=== PATIENT | female | born 1945 | race African-American/Black ===

== ENCOUNTER 2017-10-10 15:33 | Inpatient (IN) | payer MEDICARE, OTHER ==
--- NOTE | 2017-10-10 17:16 | ED Physician Chart ---
ED Chief Complaint/HPI - Patient Information Date Seen:: 10/10/17 Time Seen:: 17:00 Chief Complaint:: aggressive behavior History of Present Illness:: Patient was exhibiting aggressive behavior at her halfway facility reportedly striking out. Allergies:: Allergies Allergy/AdvReac Type Severity Reaction Status Date / Time No Known Allergies Allergy Verified 10/10/17 16:39 Vitals:: Vital Signs - 8 hr 10/10/17 16:39 Temp 98.9 F HR 114 RR 23 BP 123/66 O2 Sat % 100 Historian:: Patient Review:: Nurse's Note Reviewed ED Review of Systems - Review of Systems General/Constitutional: No fever, No chills Skin: No skin lesions Head: No headache Eyes: No loss of vision ENT: No earache Neck: No neck pain, No swelling Cardio Vascular: No chest pain, No palpitations Pulmonary: No SOB GI: No nausea, No vomiting, No diarrhea G/U: No dysuria Musculoskeletal: No bone or joint pain Endocrine: No polyuria, No polydipsia Psychiatric: Prior psych history Hematopoietic: Bruising Allergic/Immuno: No urticaria Neurological: No syncope, No focal symptoms ED Past Medical History - Past Medical History Past Medical History: HTN, CAD, Dyslipidemia, Other (hyperlipidemia; angina pectoris; psychosis) Social History: Smoker, No Alcohol Surgical History: other (mastectomy) Psychiatricy History: Other (psychosis) Medication: Reviewed ED Labs/Radiology/EKG Results - EKG Interpretations Rate & Rhythm: normal sinus rhythm with a rate of 79 [place]: normal axis Comments:: First degree AV block and left ventricular hypertrophy. ED Septic Shock - . Is Septic Shock (SBP<90, OR Lactate>4 mmol\L) present?: No - <6hrs of presentation: Vital Signs: Vital Signs - 8 hr 10/10/17 16:39 Temp 98.9 F HR 114 RR 23 BP 123/66 O2 Sat % 100 ED Reassessment (Disposition) - Reassessment Reassessment:: Patient refused laboratory tests so will be given a medical clearance based on her history, physical and EKG Reassessment Condition:: Unchanged - Diagnosis Diagnosis:: Aggressive behavior; psychosis - Patient Disposition Admitted to:: [facility] Admitting Medical Physician:: Binh Bear Admitting Psych Physician:: Felipe Dahl Condition at Disposition:: Stable, Unchanged ED Discharge Plan - Patient Disposition Instructions: Psychosis
[2017-10-10 18:24] LABS: URINE MICROSCOPIC INDICATED? YES; URINE SOURCE CLEAN C
[2017-10-10 18:34] LABS: URINE BILIRUBIN NEGATIVE (NEGATIVE); URINE BLOOD NEGATIVE (NEGATIVE); URINE GLUCOSE (UA) NEGATIVE (NEGATIVE); URINE KETONE NEGATIVE (NEGATIVE); URINE LEUKOCYTE ESTERASE NEGATIVE (NEGATIVE); URINE NITRATE NEGATIVE (NEGATIVE); URINE PROTEIN NEGATIVE (NEGATIVE); URINE UROBILINOGEN 0.2 E.U./dL (0.2 - 1.0)
[2017-10-10 18:48] LABS: AMPHETAMINE URINE NEGATIVE (NEGATIVE); BARBITURATES URINE NEGATIVE (NEGATIVE); BENZODIAZEPINES QUAL URINE NEGATIVE (NEGATIVE); CANNABINOID THC NEGATIVE (NEGATIVE); COCAINE METABOLITE QUAL URINE NEGATIVE (NEGATIVE); METHADONE URINE NEGATIVE (NEGATIVE); METHAMPHETAMINES QUAL URINE NEGATIVE (NEGATIVE); OPIATES (MORPHINE) QUAL. URINE NEGATIVE (NEGATIVE); PHENCYCLIDINE (PCP) URINE NEGATIVE (NEGATIVE); TRICYCLICS (TCA) QUAL. URINE NEGATIVE (NEGATIVE)
[2017-10-10 18:52] LABS: URINE CLARITY CLEAR (CLEAR); URINE COLOR YELLOW
[2017-10-10 18:53] LABS: URINE BACTERIA FEW /hpf (NONE SEEN); URINE EPITHELIAL CELLS MODERATE /lpf (FEW); URINE RBC NONE SEEN /hpf (0-5); URINE WBC 0-2 /hpf (0-5)
[2017-10-10 20:37] VITALS: BP 196/86
--- NOTE | 2017-10-11 08:46 | History and Physical ---
History of Present Illness - HPI Chief Complaint: Patient was send from SNF due to increased in agitation, patient was striking employes. HPI: This is a permanent resident of a nursing [facility]. Patient started to became agitated and striking personal, she was transferred to ER for evaluation and treatment. Vital Signs: Last Vital Signs Temp 97.6 F 10/11/17 06:55 Pulse 72 10/11/17 06:55 Resp 20 10/11/17 06:55 BP 137/78 10/11/17 06:55 Pulse Ox 98 10/11/17 06:55 Past Medical History Cardiovascular: Report: AFIB, CAD, CHF, HTN Pulmonary: Report: No Pertinent Hx HAND GRINDER: Report: Dementia GI: Report: No Pertinent Hx Psych: Report: Psychosis, Schizophrenia Musculoskeletal: Report: Weakness Rheumatologic: Report: No pertinent Hx Infectious Disease: Report: No Pertinent Hx Renal/: Report: No Pertinent Hx Endocrine: Report: No Pertinent Hx Dermatology: Report: No Pertinent Hx - Past Surgical History Past Surgical History: Mastectomy Family Medical History - Family Member Mother History Unknown: Yes Ethnicity: Unknown Living Status: Unknown Hx Family Cancer: (unknown) Hx Family Coronary Artery Disease: (unknown) Hx Family Congestive Heart Failure: (unknown) Hx Family Hypertension: (unknown) Hx Family Stroke: (unknown) Hx Family Diabetes: (unknown) Hx Family Seizures: (unknown) Hx Family Dementia: (unknown) Hx Family AIDS: (unknown) Hx Family HIV: No Hx Family COPD: (unknown) Hx Family Hepatitis: (unknown) Hx Family Psychiatric Problems: (unknown) Hx Family Tuberculosis: (unknown) Social History Smoke: No Alcohol: None Drugs: None Lives: Care Home Domestic Violence: Negative - Medications Home Medications: Home Medication Medication Instructions Recorded Type Amlodipine Besylate 10 mg PO DAILY 10/10/17 History Aspirin [Aspirin Chewable] 81 mg PO DAILY 10/10/17 History Calcium Carbonate [Oyster Shell 500 mg PO DAILY 10/10/17 History Calcium] Diphenhydramine HCL [Benadryl] 50 mg PO HS 10/10/17 History Docusate Sodium [Dok] 250 mg PO DAILY 10/10/17 History Hydralazine [Apresoline*] 50 mg PO TID 10/10/17 History Hydrochlorothiazide 12.5 mg PO DAILY 10/10/17 History Ibuprofen 600 mg PO Q8H PRN 10/10/17 History Isosorbide Mononitrate [Isosorbide 60 mg PO DAILY 10/10/17 History Mononitrate ER] Losartan Potassium [Cozaar] 50 mg PO DAILY 10/10/17 History Multivitamin [Multivitamins] 1 cap PO DAILY 10/10/17 History Oxybutynin Chloride [Ditropan*] 5 mg PO DAILY 10/10/17 History Risperidone 2 mg PO TID 10/10/17 History Simvastatin [Zocor] 20 mg PO DAILY 10/10/17 History - Allergies Allergies/Adverse Reactions: Allergies Allergy/AdvReac Type Severity Reaction Status Date / Time No Known Allergies Allergy Verified 10/10/17 16:39 Review of Systems - Review of Systems Constitutional: Report: Weakness Eyes: Report: No Significant ENT: Report: No Significant Respiratory: Report: No Significant Cardiovascular: Report: No Significant Gastrointestinal: Report: No Significant Genitourinary: Report: No Significant Musculoskeletal: Report: No Significant Skin: Report: No Significant Neurological: Report: Weakness Physical Exam - Physical Exam HEENT: Report: Ears Nose Throat within normal limits Neck: Report: Within normal limits Cardiovascular Systems: Report: Regular, Rate and Rhythm Respiratory: Report: Breath Sounds are within normal limits Abdomen: Report: Non-tender to palpation Back: Report: Inspection of back is within normal limits. Extremities: Report: Non-tender to palpation., Other (Patient walks with walker assistance.) Skin: Report: Color of skin is within normal limits Neuro/Psych: Report: Other (Awake, alert, calm, confused, in no acute distress.) - Lab Results All Lab Results last 24 hours: Laboratory Results - last 24 hr 10/10/17 10/10/17 18:16 18:16 Urine Source CLEAN C Urine Color YELLOW Urine Clarity CLEAR Urine pH 6.0 Ur Specific [place] <= 1.005 Urine Protein NEGATIVE Urine Glucose (UA) NEGATIVE Urine Ketones NEGATIVE Urine Blood NEGATIVE Urine Nitrate NEGATIVE Urine Bilirubin NEGATIVE Urine Urobilinogen 0.2 Ur Leukocyte Esterase NEGATIVE Urine RBC NONE SEEN Urine WBC 0-2 Ur Epithelial Cells MODERATE Urine Bacteria FEW Urine Opiates Screen NEGATIVE Urine Methadone Screen NEGATIVE Ur Barbiturates Screen NEGATIVE Ur Tricyclics Screen NEGATIVE Ur Phencyclidine Scrn NEGATIVE Amphetamines Screen NEGATIVE U Methamphetamines Scrn NEGATIVE U Benzodiazepines Scrn NEGATIVE U Cocaine Metab Screen NEGATIVE U Cannabinoids Screen NEGATIVE - Assessment Assessment: Current Active Problems Problem Status Onset AGITATED AND AGGRESSIVE BEHAVIOR Acute Patient is awake, alert, calm, in no acute distress. Dx: Increased in agitation , Psychosis, HTN, CAD, Dyslipemia, Angina pectoris. - Plan Plan: Patient will be follow by Psychiatry, she will continue with SNF meds. Patient refused draw blood. Will continue to monitor.
[2017-10-11] MEDS: Aspirin 81mg Chewable Tab PO SCH (09:04)
[2017-10-11] MEDS: Multivitamin Tab PO SCH (09:06)
--- NOTE | 2017-10-12 06:45 | Psychosocial Evaluation ---
DATE OF SERVICE: 10/11/2017 IDENTIFYING DATA: The patient is 72-year-old -[place] woman, resident of [facility]. Information obtained by directly interviewing the patient as well as reviewing the admission papers and they are reliable. JUSTIFICATION HOSPITALIZATION: The patient is admitted here on a voluntary basis in view of her agitation and psychosis. CHIEF COMPLAINT: "They are poisoning the juice, they are poisoning the food. I cannot go back there anymore." HISTORY OF PRESENT ILLNESS: This is the first psychiatric hospitalization to [facility] for this patient who has been very agitated, screaming and yelling, stating that the juice is poisoned and the food is poisoned. She cannot take any longer and then has been arguing with the staff members. The patient could not be redirected. Review of the chart indicates that the patient is currently on 2 mg 3 times a day of the Risperdal. Sleep and appetite prior to the hospitalization are reported to be poor. PAST PSYCHIATRIC HISTORY: Details are not known. MEDICAL HISTORY: Physical examination requested and done by Dr. Bear. The patient has hypercholesterolemia, problem with her bladder, and the patient is also having high blood pressure. SUBSTANCE ABUSE HISTORY: None. PHYSICAL OR SEXUAL ABUSE HISTORY: None. LEGAL PROBLEMS: None at this time. MENTAL STATUS EXAMINATION: The patient is a 72-year-old moderately obese, superficially cooperative. Eye contact is poor. Mood is noted to be irritable. Affect is constricted. Insight and judgment are noted to be still impaired. Impulse control seems to be poor. Coping skills are also noted to be very poor. The patient has been having difficult time to cope with the stress. The patient is screaming and yelling. The patient is extremely paranoid, but denies any command hallucinations. The patient is stating that her juice and then the food is poisoned. The patient is alert and oriented x 3. Short and long-term memory are noted to be intact. DIAGNOSTIC IMPRESSION: AXIS I: Schizophrenia, chronic paranoid type. AXIS II: None. AXIS III: Hypertension, hypercholesterolemia, and obesity. IMMEDIATE TREATMENT PLAN: The patient is going to be continued with the Risperdal. The patient is going to be closely monitored. Once stabilized, the patient is going to be discharged to be followed up on an outpatient basis. JOB# [id number]
--- NOTE | 2017-10-12 08:39 | General Progress Note ---
Subjective - Review of Systems Service Date: 10/12/17 Subjective: I am ok. Objective - Results Recent Labs: Laboratory Last Values Urine Source CLEAN C 10/10/17 18:16 Urine Color YELLOW 10/10/17 18:16 Urine Clarity CLEAR (CLEAR) 10/10/17 18:16 Urine pH 6.0 (4.6 - 8.0) 10/10/17 18:16 Ur Specific [place] <= 1.005 (1.005-1.030) 10/10/17 18:16 Urine Protein NEGATIVE mg/dL (NEGATIVE) 10/10/17 18:16 Urine Glucose (UA) NEGATIVE mg/dL (NEGATIVE) 10/10/17 18:16 Urine Ketones NEGATIVE mg/dL (NEGATIVE) 10/10/17 18:16 Urine Blood NEGATIVE (NEGATIVE) 10/10/17 18:16 Urine Nitrate NEGATIVE (NEGATIVE) 10/10/17 18:16 Urine Bilirubin NEGATIVE (NEGATIVE) 10/10/17 18:16 Urine Urobilinogen 0.2 E.U./dL (0.2 - 1.0) 10/10/17 18:16 Ur Leukocyte Esterase NEGATIVE (NEGATIVE) 10/10/17 18:16 Urine RBC NONE SEEN /hpf (0-5) 10/10/17 18:16 Urine WBC 0-2 /hpf (0-5) 10/10/17 18:16 Ur Epithelial Cells MODERATE /lpf (FEW) 10/10/17 18:16 Urine Bacteria FEW /hpf (NONE SEEN) 10/10/17 18:16 Urine Opiates Screen NEGATIVE (NEGATIVE) 10/10/17 18:16 Urine Methadone Screen NEGATIVE (NEGATIVE) 10/10/17 18:16 Ur Barbiturates Screen NEGATIVE (NEGATIVE) 10/10/17 18:16 Ur Tricyclics Screen NEGATIVE (NEGATIVE) 10/10/17 18:16 Ur Phencyclidine Scrn NEGATIVE (NEGATIVE) 10/10/17 18:16 Amphetamines Screen NEGATIVE (NEGATIVE) 10/10/17 18:16 U Methamphetamines Scrn NEGATIVE (NEGATIVE) 10/10/17 18:16 U Benzodiazepines Scrn NEGATIVE (NEGATIVE) 10/10/17 18:16 U Cocaine Metab Screen NEGATIVE (NEGATIVE) 10/10/17 18:16 U Cannabinoids Screen NEGATIVE (NEGATIVE) 10/10/17 18:16 - Physical Exam Vitals and I&O: Vital Signs Temp 97.1 F 10/12/17 07:23 Pulse 62 10/12/17 07:23 Resp 19 10/12/17 07:23 BP 156/57 10/12/17 07:23 Pulse Ox 97 10/12/17 07:23 Intake & Output 10/11/17 10/12/17 10/12/17 18:59 06:59 18:59 Intake Total 1520 320 Balance 1520 320 Intake: Oral 1520 320 Other: # Voids 2 1 Active Medications: Current Medications Amlodipine Besylate (Norvasc) 10 mg PO DAILY [facility] Stop: 12/10/17 08:59 Last Admin: 10/11/17 09:07 Dose: Not Given Aspirin (Aspirin Chewable) 81 mg PO DAILY [facility] Stop: 12/10/17 08:59 Last Admin: 10/11/17 09:04 Dose: Not Given Calcium Carbonate (Os-Silvestre) 500 mg PO DAILY [facility] Stop: 12/10/17 08:59 Last Admin: 10/11/17 09:04 Dose: 500 mg Diphenhydramine HCl (Benadryl) 50 mg PO HS [facility] Stop: 12/09/17 20:59 Last Admin: 10/11/17 21:19 Dose: Not Given Docusate Sodium (Colace) 250 mg PO DAILY [facility] Stop: 12/10/17 08:59 Last Admin: 10/11/17 09:27 Dose: Not Given Hydralazine HCl (Apresoline) 50 mg PO TID [facility] Stop: 12/09/17 20:59 Last Admin: 10/11/17 21:21 Dose: 50 mg Hydrochlorothiazide (Hctz) 12.5 mg PO DAILY [facility] Stop: 12/10/17 08:59 Last Admin: 10/11/17 09:04 Dose: Not Given Ibuprofen (Motrin) 600 mg PO Q8H PRN PRN Reason: PAIN Stop: 12/09/17 20:45 Isosorbide Mononitrate (Imdur) 60 mg PO DAILY [facility] Stop: 12/10/17 08:59 Last Admin: 10/11/17 09:03 Dose: Not Given Lorazepam (Ativan) 0.5 mg PO Q6HR PRN; Protocol PRN Reason: Agitation Stop: 12/10/17 02:34 Losartan Potassium (Cozaar) 50 mg PO DAILY [facility] Stop: 12/10/17 08:59 Last Admin: 10/11/17 09:08 Dose: Not Given Multivitamins/Vitamin C (Theragran) 1 tab PO DAILY [facility] Stop: 12/10/17 08:59 Last Admin: 10/11/17 09:06 Dose: 1 tab Oxybutynin Chloride (Ditropan) 5 mg PO DAILY [facility] Stop: 12/10/17 08:59 Last Admin: 10/11/17 09:08 Dose: Not Given Risperidone (Risperdal) 2 mg PO TID [facility] Stop: 12/09/17 20:59 Last Admin: 10/11/17 21:20 Dose: 2 mg Simvastatin (Zocor) 20 mg PO HS [facility] PRN Reason: Protocol Stop: 12/09/17 20:59 Last Admin: 10/11/17 21:19 Dose: Not Given Zolpidem Tartrate (Ambien) 5 mg PO HS PRN PRN Reason: Insomnia Stop: 12/10/17 02:35 General: Alert, No acute distress HEENT: Atraumatic, PERRLA Neck: Supple Cardiovascular: Regular rate Lungs: Clear to auscultation Abdomen: Bowel sounds Extremities: Other (No edema) Neurological: Other (Walk with the assistance of a walker.) Skin: Other (Warm and dry) Psych/Mental Status: Other (Awake, alert, confused) Assessment/Plan - Problem List Patient Problems: All Active Problems AGITATED AND AGGRESSIVE BEHAVIOR (Acute) - Assessment Assessment: Current Active Problems Problem Status Onset AGITATED AND AGGRESSIVE BEHAVIOR Acute Patient is awake, alert, calm, in no acute distress. Dx: Increased in agitation , Psychosis, HTN, CAD, Dyslipemia, Angina pectoris. - Plan Plan: Patient will be follow by Psychiatry, she will continue with SNF meds. Patient refused draw blood. Will continue to monitor.
[2017-10-12] MEDS: Multivitamin Tab PO SCH (09:22)
[2017-10-12] MEDS: Aspirin 81mg Chewable Tab PO SCH (09:27)
--- NOTE | 2017-10-12 10:10 | Consultation ---
DATE OF CONSULTATION: 10/12/2017 REQUESTING PHYSICIAN: Felipe Dahl MD. TYPE OF CONSULTATION: Psychology. HISTORY OF PRESENT ILLNESS: The following is by review of the medical record as well as by patient's self report. The patient is a 72-year-old -[place] female who is a resident of [facility] [place]. The patient is known to this expert medical writer from her jail facility. The patient is being admitted due to paranoid ideation and suspiciousness. The patient reports that she feels her food is being poisoned by the staff at her facility. The patient is agitated and presents as actively psychotic and delusional. Upon interview, the patient continued to be agitated with intermittent episodes of yelling. The patient repeated and perseverated on the allegation that her food is being poisoned and that she does not want to return to the facility. The patient's behavior at the facility has been un-redirectable. The patient denies any suicidal ideation, plan or intention. The patient denies any hopelessness or helplessness. The patient at a certain point in the clinical interview stopped responding to clinical interview questions. PAST MEDICAL HISTORY: Please see history and physical by Dr. Bear. PAST PSYCHIATRIC HISTORY: The patient has a history of schizophrenia, paranoid type. The patient is under the care of a psychiatrist and psychologist at her jail facility. CURRENT MEDICATIONS: Please see medication reconciliation. ALLERGIES: No known drug allergies. SUBSTANCE ABUSE HISTORY: None. PSYCHOSOCIAL HISTORY: The patient is a resident of [facility] [place] and is seen by Dr. Talamantes for Psychiatry and this expert medical writer for Psychology. The patient has no first-degree biological relatives that are part of her support system. The patient did not answer questions about occupational history or educational history. The patient is a Sikhism. MENTAL STATUS EXAMINATION: The patient appears to be her stated age. The patient's attitude is superficially cooperative and at times argumentative. Eye contact is poor. Mood is irritable. Affect is constricted. Thought process shows to include suspiciousness and paranoid ideation. The patient is reporting that she feels her food is poisoned at her jail facility and stating she does not want to return to her placement. The patient denied any visual hallucinations or auditory hallucinations. The patient's behavior has been un-redirectable. Impulse control is inadequate. Concentration is poor. The patient was unable to sustain focus and attention and be cognitively redirected due to delusional content and perseveration on delusional thought. The patient' s sensorium is alert and oriented to self only. The patient did not participate in the memory evaluation. Immediate memory seems to be intact but short term and long-term memory need further evaluation. The patient did not participate in the interpretation of proverbs. Insight is poor. Judgment is impaired. DIAGNOSTIC IMPRESSION: AXIS I: Schizophrenia, chronic paranoid type by history. AXIS II: Deferred. AXIS III: Please see history and physical. PLAN: The patient has been seen for psychiatric evaluation and for the management of the patient's psychotropic medications by Dr. Dahl. We will provide reality orientation, reality differentiation and reality integration. We will provide coping strategies for phase of life issues as well as chronic severe mental illness. We will provide de-escalation and motivational enhancement for the patient to become compliant and stay compliant with all aspects of her care and treatment. Thank you, Dr. Dahl for this consult and the opportunity to participate with you in this patient's care. JOB# [id number] MTDD
--- NOTE | 2017-10-12 22:19 | Progress Notes ---
DATE: 10/12/2017 PSYCHIATRIC PROGRESS NOTE SUBJECTIVE: Staff was spoken to. The patient is interviewed. Mood is irritable. Affect is constricted. Coping skills at this time are noted to be still poor. The patient is screaming and yelling and stating that she does not need to be in here and does not need to be on any medications. There is no need for any psychiatrist. The patient is accusing that her food is being poisoned and no one is paying any attention to it. Continues to be extremely paranoid. The patient is not ready to be discharged to a lower level of care yet. The patient is also stating that she does not want to go back to [facility] because they tricked her and then got her over here. ASSESSMENT: The patient is still psychotic and impulsive. PLAN: To continue the patient with supportive therapy. Encouraged the patient to verbalize the concerns rather than to act out. Please note that the patient is not ready to be discharged to a lower level of care. Plan is to continue the patient with Risperdal and follow the patient. JOB# [id number]
[2017-10-13] MEDS: Aspirin 81mg Chewable Tab PO SCH (09:10)
[2017-10-13] MEDS: Multivitamin Tab PO SCH (09:18)
--- NOTE | 2017-10-13 10:38 | General Progress Note ---
Subjective - Review of Systems Service Date: 10/13/17 Subjective: I am ok. Objective - Results Recent Labs: Laboratory Last Values Urine Source CLEAN C 10/10/17 18:16 Urine Color YELLOW 10/10/17 18:16 Urine Clarity CLEAR (CLEAR) 10/10/17 18:16 Urine pH 6.0 (4.6 - 8.0) 10/10/17 18:16 Ur Specific [place] <= 1.005 (1.005-1.030) 10/10/17 18:16 Urine Protein NEGATIVE mg/dL (NEGATIVE) 10/10/17 18:16 Urine Glucose (UA) NEGATIVE mg/dL (NEGATIVE) 10/10/17 18:16 Urine Ketones NEGATIVE mg/dL (NEGATIVE) 10/10/17 18:16 Urine Blood NEGATIVE (NEGATIVE) 10/10/17 18:16 Urine Nitrate NEGATIVE (NEGATIVE) 10/10/17 18:16 Urine Bilirubin NEGATIVE (NEGATIVE) 10/10/17 18:16 Urine Urobilinogen 0.2 E.U./dL (0.2 - 1.0) 10/10/17 18:16 Ur Leukocyte Esterase NEGATIVE (NEGATIVE) 10/10/17 18:16 Urine RBC NONE SEEN /hpf (0-5) 10/10/17 18:16 Urine WBC 0-2 /hpf (0-5) 10/10/17 18:16 Ur Epithelial Cells MODERATE /lpf (FEW) 10/10/17 18:16 Urine Bacteria FEW /hpf (NONE SEEN) 10/10/17 18:16 Urine Opiates Screen NEGATIVE (NEGATIVE) 10/10/17 18:16 Urine Methadone Screen NEGATIVE (NEGATIVE) 10/10/17 18:16 Ur Barbiturates Screen NEGATIVE (NEGATIVE) 10/10/17 18:16 Ur Tricyclics Screen NEGATIVE (NEGATIVE) 10/10/17 18:16 Ur Phencyclidine Scrn NEGATIVE (NEGATIVE) 10/10/17 18:16 Amphetamines Screen NEGATIVE (NEGATIVE) 10/10/17 18:16 U Methamphetamines Scrn NEGATIVE (NEGATIVE) 10/10/17 18:16 U Benzodiazepines Scrn NEGATIVE (NEGATIVE) 10/10/17 18:16 U Cocaine Metab Screen NEGATIVE (NEGATIVE) 10/10/17 18:16 U Cannabinoids Screen NEGATIVE (NEGATIVE) 10/10/17 18:16 - Physical Exam Vitals and I&O: Vital Signs Temp 98.9 F 10/13/17 06:22 Pulse 73 10/13/17 09:17 Resp 18 10/13/17 06:22 BP 173/85 10/13/17 09:17 Pulse Ox 93 10/13/17 06:22 Intake & Output 10/12/17 10/13/17 10/13/17 18:59 06:59 18:59 Intake Total 320 Balance 320 Weight (lbs) 97.522 kg Intake: Oral 320 Other: # Voids 1 Active Medications: Current Medications Amlodipine Besylate (Norvasc) 10 mg PO DAILY [facility] Stop: 12/10/17 08:59 Last Admin: 10/13/17 09:09 Dose: 10 mg Aspirin (Aspirin Chewable) 81 mg PO DAILY [facility] Stop: 12/10/17 08:59 Last Admin: 10/13/17 09:10 Dose: 81 mg Calcium Carbonate (Os-Silvestre) 500 mg PO DAILY [facility] Stop: 12/10/17 08:59 Last Admin: 10/13/17 09:10 Dose: 500 mg Diphenhydramine HCl (Benadryl) 50 mg PO HS [facility] Stop: 12/09/17 20:59 Last Admin: 10/12/17 21:16 Dose: Not Given Docusate Sodium (Colace) 250 mg PO DAILY [facility] Stop: 12/10/17 08:59 Last Admin: 10/13/17 09:09 Dose: 250 mg Hydralazine HCl (Apresoline) 50 mg PO TID [facility] Stop: 12/09/17 20:59 Last Admin: 10/13/17 09:16 Dose: 50 mg Hydrochlorothiazide (Hctz) 12.5 mg PO DAILY [facility] Stop: 12/10/17 08:59 Last Admin: 10/13/17 09:08 Dose: 12.5 mg Ibuprofen (Motrin) 600 mg PO Q8H PRN PRN Reason: PAIN Stop: 12/09/17 20:45 Isosorbide Mononitrate (Imdur) 60 mg PO DAILY [facility] Stop: 12/10/17 08:59 Last Admin: 10/13/17 09:26 Dose: Not Given Lorazepam (Ativan) 0.5 mg PO Q6HR PRN; Protocol PRN Reason: Agitation Stop: 12/10/17 02:34 Losartan Potassium (Cozaar) 50 mg PO DAILY [facility] Stop: 12/10/17 08:59 Last Admin: 10/13/17 09:17 Dose: 50 mg Multivitamins/Vitamin C (Theragran) 1 tab PO DAILY [facility] Stop: 12/10/17 08:59 Last Admin: 10/13/17 09:18 Dose: 1 tab Oxybutynin Chloride (Ditropan) 5 mg PO DAILY [facility] Stop: 12/10/17 08:59 Last Admin: 10/13/17 09:09 Dose: 5 mg Risperidone (Risperdal) 2 mg PO TID [facility] Stop: 12/09/17 20:59 Last Admin: 10/13/17 09:17 Dose: 2 mg Simvastatin (Zocor) 20 mg PO HS [facility] PRN Reason: Protocol Stop: 12/09/17 20:59 Last Admin: 10/12/17 21:12 Dose: 20 mg Zolpidem Tartrate (Ambien) 5 mg PO HS PRN PRN Reason: Insomnia Stop: 12/10/17 02:35 General: Alert, No acute distress HEENT: Atraumatic, PERRLA Neck: Supple Cardiovascular: Regular rate Lungs: Clear to auscultation Abdomen: Bowel sounds Extremities: Other (No edema) Neurological: Other (Walk with the assistance of a walker.) Skin: Other (Warm and dry) Psych/Mental Status: Other (Awake, alert, confused) Assessment/Plan - Problem List Patient Problems: All Active Problems AGITATED AND AGGRESSIVE BEHAVIOR (Acute) - Assessment Assessment: Current Active Problems Problem Status Onset AGITATED AND AGGRESSIVE BEHAVIOR Acute Patient is awake, alert, calm, in no acute distress. Dx: Increased in agitation , Psychosis, HTN, CAD, Dyslipemia, Angina pectoris. - Plan Plan: Patient will be follow by Psychiatry, she will continue with SNF meds. Patient refused draw blood. Will continue to monitor.
--- NOTE | 2017-10-13 22:07 | Progress Notes ---
DATE: 10/13/2017 SUBJECTIVE: Staff was spoken to. The patient is interviewed. Mood is noted to be irritable. Affect is constricted. The patient is very paranoid and patient has been stating that her food is being poisoned and someone is adding some poison in to her food. The patient has no insight into her illness. Coping skills are noted to be very poor. No side effects to the medications are noted. The patient has been insisting on having her way. The patient needs to be redirected constantly. ASSESSMENT: The patient is still impulsive. The patient is going to be followed up with a supportive therapy, encouraged to verbalize the concerns rather than to act out. The patient at this time is not ready to be discharged to a lower level of care yet. JOB# [id number]
--- NOTE | 2017-10-14 08:36 | General Progress Note ---
Subjective - Review of Systems Service Date: 10/14/17 Subjective: I am ok. Objective - Results Recent Labs: Laboratory Last Values Urine Source CLEAN C 10/10/17 18:16 Urine Color YELLOW 10/10/17 18:16 Urine Clarity CLEAR (CLEAR) 10/10/17 18:16 Urine pH 6.0 (4.6 - 8.0) 10/10/17 18:16 Ur Specific [place] <= 1.005 (1.005-1.030) 10/10/17 18:16 Urine Protein NEGATIVE mg/dL (NEGATIVE) 10/10/17 18:16 Urine Glucose (UA) NEGATIVE mg/dL (NEGATIVE) 10/10/17 18:16 Urine Ketones NEGATIVE mg/dL (NEGATIVE) 10/10/17 18:16 Urine Blood NEGATIVE (NEGATIVE) 10/10/17 18:16 Urine Nitrate NEGATIVE (NEGATIVE) 10/10/17 18:16 Urine Bilirubin NEGATIVE (NEGATIVE) 10/10/17 18:16 Urine Urobilinogen 0.2 E.U./dL (0.2 - 1.0) 10/10/17 18:16 Ur Leukocyte Esterase NEGATIVE (NEGATIVE) 10/10/17 18:16 Urine RBC NONE SEEN /hpf (0-5) 10/10/17 18:16 Urine WBC 0-2 /hpf (0-5) 10/10/17 18:16 Ur Epithelial Cells MODERATE /lpf (FEW) 10/10/17 18:16 Urine Bacteria FEW /hpf (NONE SEEN) 10/10/17 18:16 Urine Opiates Screen NEGATIVE (NEGATIVE) 10/10/17 18:16 Urine Methadone Screen NEGATIVE (NEGATIVE) 10/10/17 18:16 Ur Barbiturates Screen NEGATIVE (NEGATIVE) 10/10/17 18:16 Ur Tricyclics Screen NEGATIVE (NEGATIVE) 10/10/17 18:16 Ur Phencyclidine Scrn NEGATIVE (NEGATIVE) 10/10/17 18:16 Amphetamines Screen NEGATIVE (NEGATIVE) 10/10/17 18:16 U Methamphetamines Scrn NEGATIVE (NEGATIVE) 10/10/17 18:16 U Benzodiazepines Scrn NEGATIVE (NEGATIVE) 10/10/17 18:16 U Cocaine Metab Screen NEGATIVE (NEGATIVE) 10/10/17 18:16 U Cannabinoids Screen NEGATIVE (NEGATIVE) 10/10/17 18:16 - Physical Exam Vitals and I&O: Vital Signs Temp 98 F 03/04/18 20:39 Pulse 75 10/13/17 21:15 Resp 19 10/13/17 20:39 BP 116/46 10/13/17 21:15 Pulse Ox 96 10/13/17 20:39 Intake & Output 10/13/17 10/14/17 10/14/17 18:59 06:59 18:59 Intake Total 1000 600 Balance 1000 600 Intake: Oral 1000 600 Other: # Voids 4 1 # Bowel Movements 1 0 Active Medications: Current Medications Amlodipine Besylate (Norvasc) 10 mg PO DAILY [facility] Stop: 12/10/17 08:59 Last Admin: 10/13/17 09:09 Dose: 10 mg Aspirin (Aspirin Chewable) 81 mg PO DAILY [facility] Stop: 12/10/17 08:59 Last Admin: 10/13/17 09:10 Dose: 81 mg Calcium Carbonate (Os-Silvestre) 500 mg PO DAILY [facility] Stop: 12/10/17 08:59 Last Admin: 10/13/17 09:10 Dose: 500 mg Diphenhydramine HCl (Benadryl) 50 mg PO HS [facility] Stop: 12/09/17 20:59 Last Admin: 10/13/17 21:16 Dose: Not Given Docusate Sodium (Colace) 250 mg PO DAILY [facility] Stop: 12/10/17 08:59 Last Admin: 10/13/17 09:09 Dose: 250 mg Hydralazine HCl (Apresoline) 50 mg PO TID [facility] Stop: 12/09/17 20:59 Last Admin: 10/13/17 21:15 Dose: Not Given Hydrochlorothiazide (Hctz) 12.5 mg PO DAILY [facility] Stop: 12/10/17 08:59 Last Admin: 10/13/17 09:08 Dose: 12.5 mg Ibuprofen (Motrin) 600 mg PO Q8H PRN PRN Reason: PAIN Stop: 12/09/17 20:45 Isosorbide Mononitrate (Imdur) 60 mg PO DAILY [facility] Stop: 12/10/17 08:59 Last Admin: 10/13/17 09:26 Dose: Not Given Lorazepam (Ativan) 0.5 mg PO Q6HR PRN; Protocol PRN Reason: Agitation Stop: 12/10/17 02:34 Losartan Potassium (Cozaar) 50 mg PO DAILY [facility] Stop: 12/10/17 08:59 Last Admin: 10/13/17 09:17 Dose: 50 mg Multivitamins/Vitamin C (Theragran) 1 tab PO DAILY [facility] Stop: 12/10/17 08:59 Last Admin: 10/13/17 09:18 Dose: 1 tab Oxybutynin Chloride (Ditropan) 5 mg PO DAILY [facility] Stop: 12/10/17 08:59 Last Admin: 10/13/17 09:09 Dose: 5 mg Risperidone (Risperdal) 2 mg PO TID [facility] Stop: 12/09/17 20:59 Last Admin: 10/13/17 21:16 Dose: Not Given Simvastatin (Zocor) 20 mg PO HS [facility] PRN Reason: Protocol Stop: 12/09/17 20:59 Last Admin: 10/13/17 21:16 Dose: Not Given Zolpidem Tartrate (Ambien) 5 mg PO HS PRN PRN Reason: Insomnia Stop: 12/10/17 02:35 General: Alert, No acute distress HEENT: Atraumatic, PERRLA Neck: Supple Cardiovascular: Regular rate Lungs: Clear to auscultation Abdomen: Bowel sounds Extremities: Other (No edema) Neurological: Other (Walk with the assistance of a walker.) Skin: Other (Warm and dry) Psych/Mental Status: Other (Awake, alert, confused) Assessment/Plan - Problem List Patient Problems: All Active Problems AGITATED AND AGGRESSIVE BEHAVIOR (Acute) - Assessment Assessment: Current Active Problems Problem Status Onset AGITATED AND AGGRESSIVE BEHAVIOR Acute Patient is awake, alert, calm, in no acute distress. Dx: Increased in agitation , Psychosis, HTN, CAD, Dyslipemia, Angina pectoris. - Plan Plan: Patient will be follow by Psychiatry, Patient is refusing meds. she will continue with SNF meds. Patient refused draw blood. Will continue to monitor.
[2017-10-14] MEDS: Aspirin 81mg Chewable Tab PO SCH (08:54)
[2017-10-14] MEDS: Multivitamin Tab PO SCH (08:54)
--- NOTE | 2017-10-15 01:03 | Progress Notes ---
DATE: 10/14/2017 PSYCHIATRIC PROGRESS NOTE SUBJECTIVE: Staff was spoken to. The patient is interviewed. Mood is noted to be irritable. Affect is constricted. Continues to be very paranoid and has been insisting that she should not be on any medications. The patient has no insight into her illness. ASSESSMENT: The patient is still grossly psychotic, paranoid, and accusing staff of doing things behind her back. PLAN: To continue the patient with the supportive therapy. Encouraged the patient to verbalize the concerns rather than to act out. JOB# [id number]
--- NOTE | 2017-10-15 08:32 | General Progress Note ---
Subjective - Review of Systems Service Date: 10/15/17 Subjective: I am fine Objective - Results Recent Labs: Laboratory Last Values Urine Source CLEAN C 10/10/17 18:16 Urine Color YELLOW 10/10/17 18:16 Urine Clarity CLEAR (CLEAR) 10/10/17 18:16 Urine pH 6.0 (4.6 - 8.0) 10/10/17 18:16 Ur Specific [place] <= 1.005 (1.005-1.030) 10/10/17 18:16 Urine Protein NEGATIVE mg/dL (NEGATIVE) 10/10/17 18:16 Urine Glucose (UA) NEGATIVE mg/dL (NEGATIVE) 10/10/17 18:16 Urine Ketones NEGATIVE mg/dL (NEGATIVE) 10/10/17 18:16 Urine Blood NEGATIVE (NEGATIVE) 10/10/17 18:16 Urine Nitrate NEGATIVE (NEGATIVE) 10/10/17 18:16 Urine Bilirubin NEGATIVE (NEGATIVE) 10/10/17 18:16 Urine Urobilinogen 0.2 E.U./dL (0.2 - 1.0) 10/10/17 18:16 Ur Leukocyte Esterase NEGATIVE (NEGATIVE) 10/10/17 18:16 Urine RBC NONE SEEN /hpf (0-5) 10/10/17 18:16 Urine WBC 0-2 /hpf (0-5) 10/10/17 18:16 Ur Epithelial Cells MODERATE /lpf (FEW) 10/10/17 18:16 Urine Bacteria FEW /hpf (NONE SEEN) 10/10/17 18:16 Urine Opiates Screen NEGATIVE (NEGATIVE) 10/10/17 18:16 Urine Methadone Screen NEGATIVE (NEGATIVE) 10/10/17 18:16 Ur Barbiturates Screen NEGATIVE (NEGATIVE) 10/10/17 18:16 Ur Tricyclics Screen NEGATIVE (NEGATIVE) 10/10/17 18:16 Ur Phencyclidine Scrn NEGATIVE (NEGATIVE) 10/10/17 18:16 Amphetamines Screen NEGATIVE (NEGATIVE) 10/10/17 18:16 U Methamphetamines Scrn NEGATIVE (NEGATIVE) 10/10/17 18:16 U Benzodiazepines Scrn NEGATIVE (NEGATIVE) 10/10/17 18:16 U Cocaine Metab Screen NEGATIVE (NEGATIVE) 10/10/17 18:16 U Cannabinoids Screen NEGATIVE (NEGATIVE) 10/10/17 18:16 - Physical Exam Vitals and I&O: Vital Signs Temp 98.9 F 10/15/17 06:05 Pulse 58 10/15/17 06:05 Resp 20 10/15/17 06:05 BP 167/55 10/15/17 06:05 Pulse Ox 95 10/15/17 06:05 Intake & Output 10/14/17 10/15/17 10/15/17 18:59 06:59 18:59 Intake Total 1020 240 Balance 1020 240 Weight (lbs) 97.522 kg Intake: Oral 1020 240 Other: # Voids 3 3 # Bowel Movements 0 0 Active Medications: Current Medications Amlodipine Besylate (Norvasc) 10 mg PO DAILY [facility] Stop: 12/10/17 08:59 Last Admin: 10/14/17 09:03 Dose: Not Given Aspirin (Aspirin Chewable) 81 mg PO DAILY [facility] Stop: 12/10/17 08:59 Last Admin: 10/14/17 08:54 Dose: 81 mg Calcium Carbonate (Os-Silvsetre) 500 mg PO DAILY [facility] Stop: 12/10/17 08:59 Last Admin: 10/14/17 08:54 Dose: 500 mg Diphenhydramine HCl (Benadryl) 50 mg PO HS [facility] Stop: 12/09/17 20:59 Last Admin: 10/14/17 21:00 Dose: 50 mg Docusate Sodium (Colace) 250 mg PO DAILY [facility] Stop: 12/10/17 08:59 Last Admin: 10/14/17 08:54 Dose: 250 mg Hydralazine HCl (Apresoline) 50 mg PO TID [facility] Stop: 12/09/17 20:59 Last Admin: 10/14/17 21:00 Dose: 50 mg Hydrochlorothiazide (Hctz) 12.5 mg PO DAILY [facility] Stop: 12/10/17 08:59 Last Admin: 10/14/17 09:03 Dose: Not Given Ibuprofen (Motrin) 600 mg PO Q8H PRN PRN Reason: PAIN Stop: 12/09/17 20:45 Last Admin: 10/14/17 21:02 Dose: 600 mg Isosorbide Mononitrate (Imdur) 60 mg PO DAILY [facility] Stop: 12/10/17 08:59 Last Admin: 10/14/17 09:03 Dose: Not Given Lorazepam (Ativan) 0.5 mg PO Q6HR PRN; Protocol PRN Reason: Agitation Stop: 12/10/17 02:34 Losartan Potassium (Cozaar) 50 mg PO DAILY [facility] Stop: 12/10/17 08:59 Last Admin: 10/14/17 09:03 Dose: Not Given Multivitamins/Vitamin C (Theragran) 1 tab PO DAILY [facility] Stop: 12/10/17 08:59 Last Admin: 10/14/17 08:54 Dose: 1 tab Oxybutynin Chloride (Ditropan) 5 mg PO DAILY [facility] Stop: 12/10/17 08:59 Last Admin: 10/14/17 08:54 Dose: 5 mg Risperidone (Risperdal) 2 mg PO TID [facility] Stop: 12/09/17 20:59 Last Admin: 10/14/17 21:00 Dose: 2 mg Simvastatin (Zocor) 20 mg PO HS [facility] PRN Reason: Protocol Stop: 12/09/17 20:59 Last Admin: 10/14/17 21:01 Dose: 20 mg Zolpidem Tartrate (Ambien) 5 mg PO HS PRN PRN Reason: Insomnia Stop: 12/10/17 02:35 General: Alert, No acute distress HEENT: Atraumatic, PERRLA Neck: Supple Cardiovascular: Regular rate Lungs: Clear to auscultation Abdomen: Bowel sounds Extremities: Other (No edema) Neurological: Other (Walk with the assistance of a walker.) Skin: Other (Warm and dry) Psych/Mental Status: Other (Awake, alert, confused) Assessment/Plan - Problem List Patient Problems: All Active Problems AGITATED AND AGGRESSIVE BEHAVIOR (Acute) - Assessment Assessment: Current Active Problems Problem Status Onset AGITATED AND AGGRESSIVE BEHAVIOR Acute Patient is awake, alert, calm, in no acute distress. Dx: Increased in agitation , Psychosis, HTN, CAD, Dyslipemia, Angina pectoris. - Plan Plan: Patient will be follow by Psychiatry, Patient took her meds yesterday. she will continue with SNF meds. Patient refused draw blood. Will continue to monitor.
[2017-10-15] MEDS: Multivitamin Tab PO SCH (08:55)
[2017-10-15] MEDS: Aspirin 81mg Chewable Tab PO SCH (08:55)
--- NOTE | 2017-10-15 17:00 | Progress Notes ---
DATE: 10/15/2017 SUBJECTIVE: Staff was spoken to. The patient is interviewed. Mood is noted to be still irritable. Affect is constricted. Insight and judgment at this time are noted to be still impaired. Impulse control seems to be limited. The patient is stating that she should not be on any medication. The patient has to be convinced to take the Risperdal. The patient is currently on 2 mg 3 times a day and is getting easily frustrated and hence it is decided to change the medications to 30 mg twice a day and follow the patient with the supportive therapy. The patient is going to be closely monitored. The patient has been encouraged to verbalize the concerns rather than to act out. JOB# [id number]
[2017-10-16] MEDS: Aspirin 81mg Chewable Tab PO SCH (08:13)
--- NOTE | 2017-10-16 08:41 | General Progress Note ---
Subjective - Review of Systems Service Date: 10/16/17 Subjective: I am fine Objective - Results Recent Labs: Laboratory Last Values Urine Source CLEAN C 10/10/17 18:16 Urine Color YELLOW 10/10/17 18:16 Urine Clarity CLEAR (CLEAR) 10/10/17 18:16 Urine pH 6.0 (4.6 - 8.0) 10/10/17 18:16 Ur Specific [place] <= 1.005 (1.005-1.030) 10/10/17 18:16 Urine Protein NEGATIVE mg/dL (NEGATIVE) 10/10/17 18:16 Urine Glucose (UA) NEGATIVE mg/dL (NEGATIVE) 10/10/17 18:16 Urine Ketones NEGATIVE mg/dL (NEGATIVE) 10/10/17 18:16 Urine Blood NEGATIVE (NEGATIVE) 10/10/17 18:16 Urine Nitrate NEGATIVE (NEGATIVE) 10/10/17 18:16 Urine Bilirubin NEGATIVE (NEGATIVE) 10/10/17 18:16 Urine Urobilinogen 0.2 E.U./dL (0.2 - 1.0) 10/10/17 18:16 Ur Leukocyte Esterase NEGATIVE (NEGATIVE) 10/10/17 18:16 Urine RBC NONE SEEN /hpf (0-5) 10/10/17 18:16 Urine WBC 0-2 /hpf (0-5) 10/10/17 18:16 Ur Epithelial Cells MODERATE /lpf (FEW) 10/10/17 18:16 Urine Bacteria FEW /hpf (NONE SEEN) 10/10/17 18:16 Urine Opiates Screen NEGATIVE (NEGATIVE) 10/10/17 18:16 Urine Methadone Screen NEGATIVE (NEGATIVE) 10/10/17 18:16 Ur Barbiturates Screen NEGATIVE (NEGATIVE) 10/10/17 18:16 Ur Tricyclics Screen NEGATIVE (NEGATIVE) 10/10/17 18:16 Ur Phencyclidine Scrn NEGATIVE (NEGATIVE) 10/10/17 18:16 Amphetamines Screen NEGATIVE (NEGATIVE) 10/10/17 18:16 U Methamphetamines Scrn NEGATIVE (NEGATIVE) 10/10/17 18:16 U Benzodiazepines Scrn NEGATIVE (NEGATIVE) 10/10/17 18:16 U Cocaine Metab Screen NEGATIVE (NEGATIVE) 10/10/17 18:16 U Cannabinoids Screen NEGATIVE (NEGATIVE) 10/10/17 18:16 - Physical Exam Vitals and I&O: Vital Signs Temp 98.0 F 10/16/17 05:19 Pulse 65 10/16/17 08:14 Resp 20 10/16/17 05:19 BP 171/81 10/16/17 08:14 Pulse Ox 100 10/16/17 05:19 Intake & Output 10/15/17 10/16/17 10/16/17 18:59 06:59 18:59 Intake Total 1200 300 Balance 1200 300 Intake: Oral 1200 300 Other: # Voids 3 2 # Bowel Movements 0 0 Active Medications: Current Medications Amlodipine Besylate (Norvasc) 10 mg PO DAILY [facility] Stop: 12/10/17 08:59 Last Admin: 10/16/17 08:14 Dose: 10 mg Aspirin (Aspirin Chewable) 81 mg PO DAILY [facility] Stop: 12/10/17 08:59 Last Admin: 10/16/17 08:13 Dose: 81 mg Calcium Carbonate (Os-Avinash) 500 mg PO DAILY [facility] Stop: 12/10/17 08:59 Last Admin: 10/16/17 08:14 Dose: 500 mg Diphenhydramine HCl (Benadryl) 50 mg PO HS [facility] Stop: 12/09/17 20:59 Last Admin: 10/15/17 21:04 Dose: 50 mg Docusate Sodium (Colace) 250 mg PO DAILY [facility] Stop: 12/10/17 08:59 Last Admin: 10/15/17 08:55 Dose: 250 mg Hydralazine HCl (Apresoline) 50 mg PO TID [facility] Stop: 12/09/17 20:59 Last Admin: 10/16/17 08:13 Dose: 50 mg Hydrochlorothiazide (Hctz) 12.5 mg PO DAILY [facility] Stop: 12/10/17 08:59 Last Admin: 10/16/17 08:13 Dose: 12.5 mg Ibuprofen (Motrin) 600 mg PO Q8H PRN PRN Reason: PAIN Stop: 12/09/17 20:45 Last Admin: 10/14/17 21:02 Dose: 600 mg Isosorbide Mononitrate (Imdur) 60 mg PO DAILY [facility] Stop: 12/10/17 08:59 Last Admin: 10/15/17 08:54 Dose: 60 mg Lorazepam (Ativan) 0.5 mg PO Q6HR PRN; Protocol PRN Reason: Agitation Stop: 12/10/17 02:34 Losartan Potassium (Cozaar) 50 mg PO DAILY [facility] Stop: 12/10/17 08:59 Last Admin: 10/15/17 08:55 Dose: 50 mg Multivitamins/Vitamin C (Theragran) 1 tab PO DAILY [facility] Stop: 12/10/17 08:59 Last Admin: 10/15/17 08:55 Dose: 1 tab Oxybutynin Chloride (Ditropan) 5 mg PO DAILY [facility] Stop: 12/10/17 08:59 Last Admin: 10/15/17 08:55 Dose: 5 mg Risperidone (Risperdal) 3 mg PO BID [facility] Stop: 12/14/17 16:59 Last Admin: 10/16/17 08:12 Dose: 3 mg Simvastatin (Zocor) 20 mg PO HS [facility] PRN Reason: Protocol Stop: 12/09/17 20:59 Last Admin: 10/15/17 21:05 Dose: 20 mg Zolpidem Tartrate (Ambien) 5 mg PO HS PRN PRN Reason: Insomnia Stop: 12/10/17 02:35 General: Alert, No acute distress HEENT: Atraumatic, PERRLA Neck: Supple Cardiovascular: Regular rate Lungs: Clear to auscultation Abdomen: Bowel sounds Extremities: Other (No edema) Neurological: Other (Walk with the assistance of a walker.) Skin: Other (Warm and dry) Psych/Mental Status: Other (Awake, alert, confused) Assessment/Plan - Problem List Patient Problems: All Active Problems AGITATED AND AGGRESSIVE BEHAVIOR (Acute) - Assessment Assessment: Current Active Problems Problem Status Onset AGITATED AND AGGRESSIVE BEHAVIOR Acute Patient is awake, alert, calm, in no acute distress. Dx: Increased in agitation , Psychosis, HTN, CAD, Dyslipemia, Angina pectoris. - Plan Plan: Patient will be follow by Psychiatry, Patient took her meds yesterday. she will continue with SNF meds. Patient refused draw blood. Will continue to monitor. Nutritional Asmnt/Malnutr-PDOC - Dietary Evaluation Malnutrition Findings (Please click <Entered> for more info): Nutritional Asmnt/Malnutrition Start: 10/15/17 13: 53 Text: Status: Complete Freq: Document 10/15/17 13:53 NIKI (Rec: 10/15/17 14:04 [email or web address]) Nutritional Asmnt/Malnutrition Patient General Information Nutritional Screening Moderate Risk Diagnosis psychosis NOS Pertinent Medical Hx/Surgical Hx Afib, CAD, CHF, HTN, dementia, schizophrenia, weakness, mastectomy Subjective Information Per records, PO intake 100%. Pertinent Medications os-avinash, colace, theragran Pertinent Labs No nutrition related labs Nutritional Hx/Data Height 1.7 m Height (Calculated Centimeters) 170.2 Current Weight (lbs) 97.522 kg Weight (Calculated Kilograms) 97.5 Weight (Calculated Grams) 83868.4 [place] Body Weight 135 Body Mass Index (BMI) 33.6 Weight Status Obese GI Symptoms GI Symptoms None Last BM 3/4 Difficult in: None Skin Integrity/Comment: intact, teri score 20 Current %PO Good (75-100%) Estimated Nutritional Goals BEE in Kcals: Adj wt of IBW Calories/Kcals/Kg 25-301 Kcals Calculated [id number] Protein: Adj wt of IBW Protein g/k Protein Calculated 70 Fluid: ml 1750-2100ml (1ml/kcal) Nutritional Problem No current Nutrition Prob Problem N/A Intervention/Recommendation Comments 1. Continue with low sodium diet as ordered. 2. Monitor PO intake, wt, labs and skin integrity 3. F/U as low risk in 7 days, 10/22 Expected Outcomes/Goals Expected Outcomes/Goals 1. PO intake to meet at least 75% of nutritional needs. 2. Wt stability, skin to remain intact
[2017-10-16] MEDS: Multivitamin Tab PO SCH (13:27)
--- NOTE | 2017-10-16 14:40 | Progress Notes ---
DATE: 10/16/2017 PSYCHIATRIC PROGRESS NOTE SUBJECTIVE: Staff was spoken to. The patient is interviewed. Mood is noted to be anxious. Affect is appropriated. No suicidal or homicidal today. The patient, however, continues to be paranoid and has been accusing staff of doing things behind her back. The patient is stating that she is not planning to return back to the same facility and wants to look for a different place. No side effects to the medications are noted at this time. ASSESSMENT: The patient is still psychotic. PLAN: To continue the patient with supportive therapy. Encouraged the patient to verbalize the concerns rather than to act out. JOB# [id number]
--- NOTE | 2017-10-17 08:57 | General Progress Note ---
Subjective - Review of Systems Service Date: 10/17/17 Subjective: I am fine Objective - Results Recent Labs: Laboratory Last Values Urine Source CLEAN C 10/10/17 18:16 Urine Color YELLOW 10/10/17 18:16 Urine Clarity CLEAR (CLEAR) 10/10/17 18:16 Urine pH 6.0 (4.6 - 8.0) 10/10/17 18:16 Ur Specific [place] <= 1.005 (1.005-1.030) 10/10/17 18:16 Urine Protein NEGATIVE mg/dL (NEGATIVE) 10/10/17 18:16 Urine Glucose (UA) NEGATIVE mg/dL (NEGATIVE) 10/10/17 18:16 Urine Ketones NEGATIVE mg/dL (NEGATIVE) 10/10/17 18:16 Urine Blood NEGATIVE (NEGATIVE) 10/10/17 18:16 Urine Nitrate NEGATIVE (NEGATIVE) 10/10/17 18:16 Urine Bilirubin NEGATIVE (NEGATIVE) 10/10/17 18:16 Urine Urobilinogen 0.2 E.U./dL (0.2 - 1.0) 10/10/17 18:16 Ur Leukocyte Esterase NEGATIVE (NEGATIVE) 10/10/17 18:16 Urine RBC NONE SEEN /hpf (0-5) 10/10/17 18:16 Urine WBC 0-2 /hpf (0-5) 10/10/17 18:16 Ur Epithelial Cells MODERATE /lpf (FEW) 10/10/17 18:16 Urine Bacteria FEW /hpf (NONE SEEN) 10/10/17 18:16 Urine Opiates Screen NEGATIVE (NEGATIVE) 10/10/17 18:16 Urine Methadone Screen NEGATIVE (NEGATIVE) 10/10/17 18:16 Ur Barbiturates Screen NEGATIVE (NEGATIVE) 10/10/17 18:16 Ur Tricyclics Screen NEGATIVE (NEGATIVE) 10/10/17 18:16 Ur Phencyclidine Scrn NEGATIVE (NEGATIVE) 10/10/17 18:16 Amphetamines Screen NEGATIVE (NEGATIVE) 10/10/17 18:16 U Methamphetamines Scrn NEGATIVE (NEGATIVE) 10/10/17 18:16 U Benzodiazepines Scrn NEGATIVE (NEGATIVE) 10/10/17 18:16 U Cocaine Metab Screen NEGATIVE (NEGATIVE) 10/10/17 18:16 U Cannabinoids Screen NEGATIVE (NEGATIVE) 10/10/17 18:16 - Physical Exam Vitals and I&O: Vital Signs Temp 98.4 F 10/16/17 20:09 Pulse 72 10/16/17 21:49 Resp 18 10/16/17 20:09 BP 126/72 10/16/17 21:49 Pulse Ox 97 10/16/17 20:09 Intake & Output 10/16/17 10/17/17 10/17/17 18:59 06:59 18:59 Intake Total 1200 240 Balance 1200 240 Weight (lbs) 97.522 kg Intake: Oral 1200 240 Other: # Voids 3 3 # Bowel Movements 1 0 Active Medications: Current Medications Amlodipine Besylate (Norvasc) 10 mg PO DAILY [facility] Stop: 12/10/17 08:59 Last Admin: 10/16/17 08:14 Dose: 10 mg Aspirin (Aspirin Chewable) 81 mg PO DAILY [facility] Stop: 12/10/17 08:59 Last Admin: 10/16/17 08:13 Dose: 81 mg Calcium Carbonate (Os-Avinash) 500 mg PO DAILY [facility] Stop: 12/10/17 08:59 Last Admin: 10/16/17 08:14 Dose: 500 mg Diphenhydramine HCl (Benadryl) 50 mg PO HS [facility] Stop: 12/09/17 20:59 Last Admin: 10/16/17 21:49 Dose: Not Given Docusate Sodium (Colace) 250 mg PO DAILY [facility] Stop: 12/10/17 08:59 Last Admin: 10/16/17 13:18 Dose: Not Given Hydralazine HCl (Apresoline) 50 mg PO TID [facility] Stop: 12/09/17 20:59 Last Admin: 10/16/17 21:49 Dose: Not Given Hydrochlorothiazide (Hctz) 12.5 mg PO DAILY [facility] Stop: 12/10/17 08:59 Last Admin: 10/16/17 08:13 Dose: 12.5 mg Ibuprofen (Motrin) 600 mg PO Q8H PRN PRN Reason: PAIN Stop: 12/09/17 20:45 Last Admin: 10/14/17 21:02 Dose: 600 mg Isosorbide Mononitrate (Imdur) 60 mg PO DAILY [facility] Stop: 12/10/17 08:59 Last Admin: 10/16/17 13:18 Dose: Not Given Lorazepam (Ativan) 0.5 mg PO Q6HR PRN; Protocol PRN Reason: Agitation Stop: 12/10/17 02:34 Last Admin: 10/16/17 14:51 Dose: 0.5 mg Losartan Potassium (Cozaar) 50 mg PO DAILY [facility] Stop: 12/10/17 08:59 Last Admin: 10/16/17 13:18 Dose: Not Given Multivitamins/Vitamin C (Theragran) 1 tab PO DAILY [facility] Stop: 12/10/17 08:59 Last Admin: 10/16/17 13:27 Dose: Not Given Oxybutynin Chloride (Ditropan) 5 mg PO DAILY [facility] Stop: 12/10/17 08:59 Last Admin: 10/16/17 13:27 Dose: Not Given Risperidone (Risperdal) 3 mg PO BID [facility] Stop: 12/14/17 16:59 Last Admin: 10/16/17 16:11 Dose: 3 mg Simvastatin (Zocor) 20 mg PO HS [facility] PRN Reason: Protocol Stop: 12/09/17 20:59 Last Admin: 10/16/17 21:49 Dose: Not Given Zolpidem Tartrate (Ambien) 5 mg PO HS PRN PRN Reason: Insomnia Stop: 12/10/17 02:35 General: Alert, No acute distress HEENT: Atraumatic, PERRLA Neck: Supple Cardiovascular: Regular rate Lungs: Clear to auscultation Abdomen: Bowel sounds Extremities: Other (No edema) Neurological: Other (Walk with the assistance of a walker.) Skin: Other (Warm and dry) Psych/Mental Status: Other (Awake, alert, confused) Assessment/Plan - Problem List Patient Problems: All Active Problems AGITATED AND AGGRESSIVE BEHAVIOR (Acute) - Assessment Assessment: Current Active Problems Problem Status Onset AGITATED AND AGGRESSIVE BEHAVIOR Acute Patient is awake, alert, calm, in no acute distress. Dx: Increased in agitation , Psychosis, HTN, CAD, Dyslipemia, Angina pectoris. - Plan Plan: Patient will be follow by Psychiatry, Patient took her meds yesterday. she will continue with SNF meds. Patient refused draw blood. Will continue to monitor. Nutritional Asmnt/Malnutr-PDOC - Dietary Evaluation Malnutrition Findings (Please click <Entered> for more info): Nutritional Asmnt/Malnutrition Start: 10/15/17 13: 53 Text: Status: Complete Freq: Document 10/15/17 13:53 LCHENG (Rec: 10/15/17 14:04 [email or web address]) Nutritional Asmnt/Malnutrition Patient General Information Nutritional Screening Moderate Risk Diagnosis psychosis NOS Pertinent Medical Hx/Surgical Hx Afib, CAD, CHF, HTN, dementia, schizophrenia, weakness, mastectomy Subjective Information Per records, PO intake 100%. Pertinent Medications os-avinash, colace, theragran Pertinent Labs No nutrition related labs Nutritional Hx/Data Height 1.7 m Height (Calculated Centimeters) 170.2 Current Weight (lbs) 97.522 kg Weight (Calculated Kilograms) 97.5 Weight (Calculated Grams) 15942.4 [place] Body Weight 135 Body Mass Index (BMI) 33.6 Weight Status Obese GI Symptoms GI Symptoms None Last BM 3/4 Difficult in: None Skin Integrity/Comment: intact, teri score 20 Current %PO Good (75-100%) Estimated Nutritional Goals BEE in Kcals: Adj wt of IBW Calories/Kcals/Kg 25-301 Kcals Calculated 5514-6210 Protein: Adj wt of IBW Protein g/k Protein Calculated 70 Fluid: ml 1750-2100ml (1ml/kcal) Nutritional Problem No current Nutrition Prob Problem N/A Intervention/Recommendation Comments 1. Continue with low sodium diet as ordered. 2. Monitor PO intake, wt, labs and skin integrity 3. F/U as low risk in 7 days, 10/22 Expected Outcomes/Goals Expected Outcomes/Goals 1. PO intake to meet at least 75% of nutritional needs. 2. Wt stability, skin to remain intact
[2017-10-17] MEDS: Aspirin 81mg Chewable Tab PO SCH (09:45)
[2017-10-17] MEDS: Multivitamin Tab PO SCH (09:45)
--- NOTE | 2017-10-17 22:55 | Progress Notes ---
DATE: 10/17/2017 SUBJECTIVE: Staff was spoken to. The patient is interviewed. Mood is noted to be irritable. Affect is constricted. Coping skills are noted to be poor. The patient is still very paranoid and is accusing staff of doing things behind her back. The patient has no insight into her illness. The patient is currently on Risperdal and has been able to tolerate the medication. The patient does not want to go back to the same facility she came from. ASSESSMENT: The patient is still psychotic. PLAN: To continue the patient with the supportive therapy and followup. JOB# [id number]
--- NOTE | 2017-10-18 08:47 | General Progress Note ---
Subjective - Review of Systems Service Date: 10/18/17 Subjective: I am fine Objective - Results Recent Labs: Laboratory Last Values Urine Source CLEAN C 10/10/17 18:16 Urine Color YELLOW 10/10/17 18:16 Urine Clarity CLEAR (CLEAR) 10/10/17 18:16 Urine pH 6.0 (4.6 - 8.0) 10/10/17 18:16 Ur Specific [place] <= 1.005 (1.005-1.030) 10/10/17 18:16 Urine Protein NEGATIVE mg/dL (NEGATIVE) 10/10/17 18:16 Urine Glucose (UA) NEGATIVE mg/dL (NEGATIVE) 10/10/17 18:16 Urine Ketones NEGATIVE mg/dL (NEGATIVE) 10/10/17 18:16 Urine Blood NEGATIVE (NEGATIVE) 10/10/17 18:16 Urine Nitrate NEGATIVE (NEGATIVE) 10/10/17 18:16 Urine Bilirubin NEGATIVE (NEGATIVE) 10/10/17 18:16 Urine Urobilinogen 0.2 E.U./dL (0.2 - 1.0) 10/10/17 18:16 Ur Leukocyte Esterase NEGATIVE (NEGATIVE) 10/10/17 18:16 Urine RBC NONE SEEN /hpf (0-5) 10/10/17 18:16 Urine WBC 0-2 /hpf (0-5) 10/10/17 18:16 Ur Epithelial Cells MODERATE /lpf (FEW) 10/10/17 18:16 Urine Bacteria FEW /hpf (NONE SEEN) 10/10/17 18:16 Urine Opiates Screen NEGATIVE (NEGATIVE) 10/10/17 18:16 Urine Methadone Screen NEGATIVE (NEGATIVE) 10/10/17 18:16 Ur Barbiturates Screen NEGATIVE (NEGATIVE) 10/10/17 18:16 Ur Tricyclics Screen NEGATIVE (NEGATIVE) 10/10/17 18:16 Ur Phencyclidine Scrn NEGATIVE (NEGATIVE) 10/10/17 18:16 Amphetamines Screen NEGATIVE (NEGATIVE) 10/10/17 18:16 U Methamphetamines Scrn NEGATIVE (NEGATIVE) 10/10/17 18:16 U Benzodiazepines Scrn NEGATIVE (NEGATIVE) 10/10/17 18:16 U Cocaine Metab Screen NEGATIVE (NEGATIVE) 10/10/17 18:16 U Cannabinoids Screen NEGATIVE (NEGATIVE) 10/10/17 18:16 - Physical Exam Vitals and I&O: Vital Signs Temp 97.6 F 10/18/17 05:51 Pulse 59 10/18/17 05:51 Resp 19 10/18/17 05:51 BP 132/63 10/18/17 05:51 Pulse Ox 97 10/18/17 05:51 Intake & Output 10/17/17 10/18/17 10/18/17 18:59 06:59 18:59 Intake Total 1000 450 Balance 1000 450 Intake: Oral 1000 450 Other: # Voids 4 3 # Bowel Movements 1 1 Active Medications: Current Medications Amlodipine Besylate (Norvasc) 10 mg PO DAILY [facility] Stop: 12/10/17 08:59 Last Admin: 10/17/17 09:45 Dose: 10 mg Aspirin (Aspirin Chewable) 81 mg PO DAILY [facility] Stop: 12/10/17 08:59 Last Admin: 10/17/17 09:45 Dose: 81 mg Calcium Carbonate (Os-Avinash) 500 mg PO DAILY [facility] Stop: 12/10/17 08:59 Last Admin: 10/17/17 09:45 Dose: 500 mg Diphenhydramine HCl (Benadryl) 50 mg PO HS [facility] Stop: 12/09/17 20:59 Last Admin: 10/17/17 20:58 Dose: Not Given Docusate Sodium (Colace) 250 mg PO DAILY [facility] Stop: 12/10/17 08:59 Last Admin: 10/17/17 09:45 Dose: 250 mg Hydralazine HCl (Apresoline) 50 mg PO TID [facility] Stop: 12/09/17 20:59 Last Admin: 10/17/17 20:58 Dose: Not Given Hydrochlorothiazide (Hctz) 12.5 mg PO DAILY [facility] Stop: 12/10/17 08:59 Last Admin: 10/17/17 09:47 Dose: 12.5 mg Ibuprofen (Motrin) 600 mg PO Q8H PRN PRN Reason: PAIN Stop: 12/09/17 20:45 Last Admin: 10/14/17 21:02 Dose: 600 mg Isosorbide Mononitrate (Imdur) 60 mg PO DAILY [facility] Stop: 12/10/17 08:59 Last Admin: 10/17/17 09:46 Dose: 60 mg Lorazepam (Ativan) 0.5 mg PO Q6HR PRN; Protocol PRN Reason: Agitation Stop: 12/10/17 02:34 Last Admin: 10/16/17 14:51 Dose: 0.5 mg Losartan Potassium (Cozaar) 50 mg PO DAILY [facility] Stop: 12/10/17 08:59 Last Admin: 10/17/17 09:46 Dose: 50 mg Multivitamins/Vitamin C (Theragran) 1 tab PO DAILY [facility] Stop: 12/10/17 08:59 Last Admin: 10/17/17 09:45 Dose: 1 tab Oxybutynin Chloride (Ditropan) 5 mg PO DAILY [facility] Stop: 12/10/17 08:59 Last Admin: 10/17/17 09:45 Dose: 5 mg Risperidone (Risperdal) 3 mg PO BID [facility] Stop: 12/14/17 16:59 Last Admin: 10/17/17 16:08 Dose: 3 mg Simvastatin (Zocor) 20 mg PO HS [facility] PRN Reason: Protocol Stop: 12/09/17 20:59 Last Admin: 10/17/17 20:58 Dose: Not Given Zolpidem Tartrate (Ambien) 5 mg PO HS PRN PRN Reason: Insomnia Stop: 12/10/17 02:35 General: Alert, No acute distress HEENT: Atraumatic, PERRLA Neck: Supple Cardiovascular: Regular rate Lungs: Clear to auscultation Abdomen: Bowel sounds Extremities: Other (No edema) Neurological: Other (Walk with the assistance of a walker.) Skin: Other (Warm and dry) Psych/Mental Status: Other (Awake, alert, confused) Assessment/Plan - Problem List Patient Problems: All Active Problems AGITATED AND AGGRESSIVE BEHAVIOR (Acute) - Assessment Assessment: Current Active Problems Problem Status Onset AGITATED AND AGGRESSIVE BEHAVIOR Acute Patient is awake, alert, calm, in no acute distress. Dx: Increased in agitation , Psychosis, HTN, CAD, Dyslipemia, Angina pectoris. - Plan Plan: Patient will be follow by Psychiatry, Patient took her meds yesterday. she will continue with SNF meds. Patient refused draw blood. Will continue to monitor. Nutritional Asmnt/Malnutr-PDOC - Dietary Evaluation Malnutrition Findings (Please click <Entered> for more info): Nutritional Asmnt/Malnutrition Start: 10/15/17 13: 53 Text: Status: Complete Freq: Document 10/15/17 13:53 NIKI (Rec: 10/15/17 14:04 NIKI [email or web address]) Nutritional Asmnt/Malnutrition Patient General Information Nutritional Screening Moderate Risk Diagnosis psychosis NOS Pertinent Medical Hx/Surgical Hx Afib, CAD, CHF, HTN, dementia, schizophrenia, weakness, mastectomy Subjective Information Per records, PO intake 100%. Pertinent Medications os-avinash, colace, theragran Pertinent Labs No nutrition related labs Nutritional Hx/Data Height 1.7 m Height (Calculated Centimeters) 170.2 Current Weight (lbs) 97.522 kg Weight (Calculated Kilograms) 97.5 Weight (Calculated Grams) 13494.4 [place] Body Weight 135 Body Mass Index (BMI) 33.6 Weight Status Obese GI Symptoms GI Symptoms None Last BM 3/4 Difficult in: None Skin Integrity/Comment: intact, teri score 20 Current %PO Good (75-100%) Estimated Nutritional Goals BEE in Kcals: Adj wt of IBW Calories/Kcals/Kg 25-301 Kcals Calculated 1332-9216 Protein: Adj wt of IBW Protein g/k Protein Calculated 70 Fluid: ml 1750-2100ml (1ml/kcal) Nutritional Problem No current Nutrition Prob Problem N/A Intervention/Recommendation Comments 1. Continue with low sodium diet as ordered. 2. Monitor PO intake, wt, labs and skin integrity 3. F/U as low risk in 7 days, 10/22 Expected Outcomes/Goals Expected Outcomes/Goals 1. PO intake to meet at least 75% of nutritional needs. 2. Wt stability, skin to remain intact
[2017-10-18] MEDS: Aspirin 81mg Chewable Tab PO SCH (10:39)
[2017-10-18] MEDS: Multivitamin Tab PO SCH (10:39)
--- NOTE | 2017-10-18 17:47 | Progress Notes ---
DATE: 10/18/2017 SUBJECTIVE: Staff was spoken to. The patient is interviewed. Mood is noted to be irritable. Affect is constricted. The patient is still very paranoid and has been stating that she some people are nice and other people are mean to her. The patient has been still fixated on her food being poisoned. No side effects to the medications are noted. The patient is currently on a high dose of the Risperdal and has been able to tolerate the medication, but the patient is also fixated that she is now going to be returning to the same place and she needs to go to a different place. ASSESSMENT: The patient is still psychotic. PLAN: To continue the patient with the current medications and work with the rehabilitation case coordinator placement. JOB# [id number]
[2017-10-19] MEDS: Aspirin 81mg Chewable Tab PO SCH (08:53)
[2017-10-19] MEDS: Multivitamin Tab PO SCH (08:53)
--- NOTE | 2017-10-19 10:50 | General Progress Note ---
Subjective - Review of Systems Service Date: 10/19/17 Subjective: I am fine Objective - Results Recent Labs: Laboratory Last Values Urine Source CLEAN C 10/10/17 18:16 Urine Color YELLOW 10/10/17 18:16 Urine Clarity CLEAR (CLEAR) 10/10/17 18:16 Urine pH 6.0 (4.6 - 8.0) 10/10/17 18:16 Ur Specific [place] <= 1.005 (1.005-1.030) 10/10/17 18:16 Urine Protein NEGATIVE mg/dL (NEGATIVE) 10/10/17 18:16 Urine Glucose (UA) NEGATIVE mg/dL (NEGATIVE) 10/10/17 18:16 Urine Ketones NEGATIVE mg/dL (NEGATIVE) 10/10/17 18:16 Urine Blood NEGATIVE (NEGATIVE) 10/10/17 18:16 Urine Nitrate NEGATIVE (NEGATIVE) 10/10/17 18:16 Urine Bilirubin NEGATIVE (NEGATIVE) 10/10/17 18:16 Urine Urobilinogen 0.2 E.U./dL (0.2 - 1.0) 10/10/17 18:16 Ur Leukocyte Esterase NEGATIVE (NEGATIVE) 10/10/17 18:16 Urine RBC NONE SEEN /hpf (0-5) 10/10/17 18:16 Urine WBC 0-2 /hpf (0-5) 10/10/17 18:16 Ur Epithelial Cells MODERATE /lpf (FEW) 10/10/17 18:16 Urine Bacteria FEW /hpf (NONE SEEN) 10/10/17 18:16 Urine Opiates Screen NEGATIVE (NEGATIVE) 10/10/17 18:16 Urine Methadone Screen NEGATIVE (NEGATIVE) 10/10/17 18:16 Ur Barbiturates Screen NEGATIVE (NEGATIVE) 10/10/17 18:16 Ur Tricyclics Screen NEGATIVE (NEGATIVE) 10/10/17 18:16 Ur Phencyclidine Scrn NEGATIVE (NEGATIVE) 10/10/17 18:16 Amphetamines Screen NEGATIVE (NEGATIVE) 10/10/17 18:16 U Methamphetamines Scrn NEGATIVE (NEGATIVE) 10/10/17 18:16 U Benzodiazepines Scrn NEGATIVE (NEGATIVE) 10/10/17 18:16 U Cocaine Metab Screen NEGATIVE (NEGATIVE) 10/10/17 18:16 U Cannabinoids Screen NEGATIVE (NEGATIVE) 10/10/17 18:16 - Physical Exam Vitals and I&O: Vital Signs Temp 97.8 F 10/19/17 06:00 Pulse 65 10/19/17 08:55 Resp 19 10/19/17 06:00 BP 140/59 10/19/17 08:56 Pulse Ox 99 10/19/17 06:00 Intake & Output 10/18/17 10/19/17 10/19/17 18:59 06:59 18:59 Intake Total 1200 490 Balance 1200 490 Intake: Oral 1200 490 Other: # Voids 5 2 # Bowel Movements 1 0 Active Medications: Current Medications Amlodipine Besylate (Norvasc) 10 mg PO DAILY [facility] Stop: 12/10/17 08:59 Last Admin: 10/19/17 08:54 Dose: 10 mg Aspirin (Aspirin Chewable) 81 mg PO DAILY [facility] Stop: 12/10/17 08:59 Last Admin: 10/19/17 08:53 Dose: 81 mg Calcium Carbonate (Os-Avinash) 500 mg PO DAILY [facility] Stop: 12/10/17 08:59 Last Admin: 10/19/17 08:53 Dose: 500 mg Diphenhydramine HCl (Benadryl) 50 mg PO HS [facility] Stop: 12/09/17 20:59 Last Admin: 10/18/17 20:46 Dose: 50 mg Docusate Sodium (Colace) 250 mg PO DAILY [facility] Stop: 12/10/17 08:59 Last Admin: 10/19/17 08:53 Dose: 250 mg Hydralazine HCl (Apresoline) 50 mg PO TID [facility] Stop: 12/09/17 20:59 Last Admin: 10/19/17 08:55 Dose: 50 mg Hydrochlorothiazide (Hctz) 12.5 mg PO DAILY [facility] Stop: 12/10/17 08:59 Last Admin: 10/19/17 08:56 Dose: 12.5 mg Ibuprofen (Motrin) 600 mg PO Q8H PRN PRN Reason: PAIN Stop: 12/09/17 20:45 Last Admin: 10/14/17 21:02 Dose: 600 mg Isosorbide Mononitrate (Imdur) 60 mg PO DAILY [facility] Stop: 12/10/17 08:59 Last Admin: 10/19/17 08:55 Dose: 60 mg Lorazepam (Ativan) 0.5 mg PO Q6HR PRN; Protocol PRN Reason: Agitation Stop: 12/10/17 02:34 Last Admin: 10/18/17 20:46 Dose: 0.5 mg Losartan Potassium (Cozaar) 50 mg PO DAILY [facility] Stop: 12/10/17 08:59 Last Admin: 10/19/17 08:55 Dose: 50 mg Multivitamins/Vitamin C (Theragran) 1 tab PO DAILY [facility] Stop: 12/10/17 08:59 Last Admin: 10/19/17 08:53 Dose: 1 tab Oxybutynin Chloride (Ditropan) 5 mg PO DAILY [facility] Stop: 12/10/17 08:59 Last Admin: 10/19/17 08:54 Dose: 5 mg Risperidone (Risperdal) 3 mg PO BID [facility] Stop: 12/14/17 16:59 Last Admin: 10/19/17 08:54 Dose: 3 mg Simvastatin (Zocor) 20 mg PO HS [facility] PRN Reason: Protocol Stop: 12/09/17 20:59 Last Admin: 10/18/17 20:47 Dose: 20 mg Zolpidem Tartrate (Ambien) 5 mg PO HS PRN PRN Reason: Insomnia Stop: 12/10/17 02:35 Last Admin: 10/18/17 20:47 Dose: 5 mg General: Alert, No acute distress HEENT: Atraumatic, PERRLA Neck: Supple Cardiovascular: Regular rate Lungs: Clear to auscultation Abdomen: Bowel sounds Extremities: Other (No edema) Neurological: Other (Walk with the assistance of a walker.) Skin: Other (Warm and dry) Psych/Mental Status: Other (Awake, alert, confused) Assessment/Plan - Problem List Patient Problems: All Active Problems AGITATED AND AGGRESSIVE BEHAVIOR (Acute) - Assessment Assessment: Current Active Problems Problem Status Onset AGITATED AND AGGRESSIVE BEHAVIOR Acute Patient is awake, alert, calm, in no acute distress. Dx: Increased in agitation , Psychosis, HTN, CAD, Dyslipemia, Angina pectoris. - Plan Plan: Patient will be follow by Psychiatry, Patient took her meds yesterday. she will continue with SNF meds. Patient refused draw blood. Will continue to monitor. Nutritional Asmnt/Malnutr-PDOC - Dietary Evaluation Malnutrition Findings (Please click <Entered> for more info): Nutritional Asmnt/Malnutrition Start: 10/15/17 13: 53 Text: Status: Complete Freq: Document 10/15/17 13:53 NIKI (Rec: 10/15/17 14:04 [email or web address]) Nutritional Asmnt/Malnutrition Patient General Information Nutritional Screening Moderate Risk Diagnosis psychosis NOS Pertinent Medical Hx/Surgical Hx Afib, CAD, CHF, HTN, dementia, schizophrenia, weakness, mastectomy Subjective Information Per records, PO intake 100%. Pertinent Medications os-avinash, colace, theragran Pertinent Labs No nutrition related labs Nutritional Hx/Data Height 1.7 m Height (Calculated Centimeters) 170.2 Current Weight (lbs) 97.522 kg Weight (Calculated Kilograms) 97.5 Weight (Calculated Grams) 18224.4 [place] Body Weight 135 Body Mass Index (BMI) 33.6 Weight Status Obese GI Symptoms GI Symptoms None Last BM 3/4 Difficult in: None Skin Integrity/Comment: intact, teri score 20 Current %PO Good (75-100%) Estimated Nutritional Goals BEE in Kcals: Adj wt of IBW Calories/Kcals/Kg 25-301 Kcals Calculated 0910-9257 Protein: Adj wt of IBW Protein g/k Protein Calculated 70 Fluid: ml 1750-2100ml (1ml/kcal) Nutritional Problem No current Nutrition Prob Problem N/A Intervention/Recommendation Comments 1. Continue with low sodium diet as ordered. 2. Monitor PO intake, wt, labs and skin integrity 3. F/U as low risk in 7 days, 10/22 Expected Outcomes/Goals Expected Outcomes/Goals 1. PO intake to meet at least 75% of nutritional needs. 2. Wt stability, skin to remain intact
--- NOTE | 2017-10-19 16:46 | Progress Notes ---
DATE: 10/19/2017 SUBJECTIVE: Staff was spoken to. The patient is interviewed. Mood is noted to be irritable. Affect is constricted. Insight and judgment at this time are noted to be still impaired. Impulse control seems to be improving. The patient has paranoia, but denies any command hallucinations. No side effects to the medications are noted. The patient is currently on Risperdal 3 mg and has been able to tolerate the medications except for the patient has been mentioning that she is feeling ill. The patient is drowsy with the medication, but the paranoia seems to be resolving. No side effects to the medications are noted. The patient is stating that she wants to go to [place] and wants to look for some place over there. ASSESSMENT: The patient's psychosis is resolving. PLAN: To continue the patient with the current medications and continue her on Risperdal and followup. JOB# [id number]
[2017-10-20] MEDS: Multivitamin Tab PO SCH (09:42)
[2017-10-20] MEDS: Aspirin 81mg Chewable Tab PO SCH (09:42)
--- NOTE | 2017-10-20 17:22 | General Progress Note ---
Subjective - Review of Systems Service Date: 10/20/17 Subjective: I am fine Objective - Results Recent Labs: Laboratory Last Values Urine Source CLEAN C 10/10/17 18:16 Urine Color YELLOW 10/10/17 18:16 Urine Clarity CLEAR (CLEAR) 10/10/17 18:16 Urine pH 6.0 (4.6 - 8.0) 10/10/17 18:16 Ur Specific [place] <= 1.005 (1.005-1.030) 10/10/17 18:16 Urine Protein NEGATIVE mg/dL (NEGATIVE) 10/10/17 18:16 Urine Glucose (UA) NEGATIVE mg/dL (NEGATIVE) 10/10/17 18:16 Urine Ketones NEGATIVE mg/dL (NEGATIVE) 10/10/17 18:16 Urine Blood NEGATIVE (NEGATIVE) 10/10/17 18:16 Urine Nitrate NEGATIVE (NEGATIVE) 10/10/17 18:16 Urine Bilirubin NEGATIVE (NEGATIVE) 10/10/17 18:16 Urine Urobilinogen 0.2 E.U./dL (0.2 - 1.0) 10/10/17 18:16 Ur Leukocyte Esterase NEGATIVE (NEGATIVE) 10/10/17 18:16 Urine RBC NONE SEEN /hpf (0-5) 10/10/17 18:16 Urine WBC 0-2 /hpf (0-5) 10/10/17 18:16 Ur Epithelial Cells MODERATE /lpf (FEW) 10/10/17 18:16 Urine Bacteria FEW /hpf (NONE SEEN) 10/10/17 18:16 Urine Opiates Screen NEGATIVE (NEGATIVE) 10/10/17 18:16 Urine Methadone Screen NEGATIVE (NEGATIVE) 10/10/17 18:16 Ur Barbiturates Screen NEGATIVE (NEGATIVE) 10/10/17 18:16 Ur Tricyclics Screen NEGATIVE (NEGATIVE) 10/10/17 18:16 Ur Phencyclidine Scrn NEGATIVE (NEGATIVE) 10/10/17 18:16 Amphetamines Screen NEGATIVE (NEGATIVE) 10/10/17 18:16 U Methamphetamines Scrn NEGATIVE (NEGATIVE) 10/10/17 18:16 U Benzodiazepines Scrn NEGATIVE (NEGATIVE) 10/10/17 18:16 U Cocaine Metab Screen NEGATIVE (NEGATIVE) 10/10/17 18:16 U Cannabinoids Screen NEGATIVE (NEGATIVE) 10/10/17 18:16 - Physical Exam Vitals and I&O: Vital Signs Temp 97.4 F 10/20/17 15:54 Pulse 74 10/20/17 15:54 Resp 18 10/20/17 15:54 BP 138/68 10/20/17 15:54 Pulse Ox 95 10/20/17 15:54 Intake & Output 10/19/17 10/20/17 10/20/17 17:59 06:59 18:59 Intake Total Balance Intake: Oral Other: # Voids # Bowel Movements Active Medications: Current Medications Amlodipine Besylate (Norvasc) 10 mg PO DAILY [facility] Stop: 12/10/17 08:59 Last Admin: 10/20/17 09:43 Dose: 10 mg Aspirin (Aspirin Chewable) 81 mg PO DAILY [facility] Stop: 12/10/17 08:59 Last Admin: 10/20/17 09:42 Dose: 81 mg Calcium Carbonate (Os-Avinash) 500 mg PO DAILY [facility] Stop: 12/10/17 08:59 Last Admin: 10/20/17 09:43 Dose: 500 mg Diphenhydramine HCl (Benadryl) 50 mg PO HS [facility] Stop: 12/09/17 20:59 Last Admin: 10/19/17 21:19 Dose: 50 mg Docusate Sodium (Colace) 250 mg PO DAILY [facility] Stop: 12/10/17 08:59 Last Admin: 10/20/17 09:43 Dose: 250 mg Hydralazine HCl (Apresoline) 50 mg PO TID [facility] Stop: 12/09/17 20:59 Last Admin: 10/20/17 14:33 Dose: Not Given Hydrochlorothiazide (Hctz) 12.5 mg PO DAILY [facility] Stop: 12/10/17 08:59 Last Admin: 10/20/17 09:41 Dose: 12.5 mg Ibuprofen (Motrin) 600 mg PO Q8H PRN PRN Reason: PAIN Stop: 12/09/17 20:45 Last Admin: 10/14/17 21:02 Dose: 600 mg Isosorbide Mononitrate (Imdur) 60 mg PO DAILY [facility] Stop: 12/10/17 08:59 Last Admin: 10/20/17 09:42 Dose: 60 mg Lorazepam (Ativan) 0.5 mg PO Q6HR PRN; Protocol PRN Reason: Agitation Stop: 12/10/17 02:34 Last Admin: 10/18/17 20:46 Dose: 0.5 mg Losartan Potassium (Cozaar) 50 mg PO DAILY [facility] Stop: 12/10/17 08:59 Last Admin: 10/20/17 09:43 Dose: 50 mg Multivitamins/Vitamin C (Theragran) 1 tab PO DAILY [facility] Stop: 12/10/17 08:59 Last Admin: 10/20/17 09:42 Dose: 1 tab Oxybutynin Chloride (Ditropan) 5 mg PO DAILY [facility] Stop: 12/10/17 08:59 Last Admin: 10/20/17 09:43 Dose: 5 mg Risperidone (Risperdal) 3 mg PO BID [facility] Stop: 12/14/17 16:59 Last Admin: 10/20/17 16:48 Dose: Not Given Simvastatin (Zocor) 20 mg PO HS [facility] PRN Reason: Protocol Stop: 12/09/17 20:59 Last Admin: 10/19/17 21:19 Dose: 20 mg Zolpidem Tartrate (Ambien) 5 mg PO HS PRN PRN Reason: Insomnia Stop: 12/10/17 02:35 Last Admin: 10/18/17 20:47 Dose: 5 mg General: Alert, No acute distress HEENT: Atraumatic, PERRLA Neck: Supple Cardiovascular: Regular rate Lungs: Clear to auscultation Abdomen: Bowel sounds Extremities: Other (No edema) Neurological: Other (Walk with the assistance of a walker.) Skin: Other (Warm and dry) Psych/Mental Status: Other (Awake, alert, confused) Assessment/Plan - Problem List Patient Problems: All Active Problems AGITATED AND AGGRESSIVE BEHAVIOR (Acute) - Assessment Assessment: Current Active Problems Problem Status Onset AGITATED AND AGGRESSIVE BEHAVIOR Acute Patient is awake, alert, calm, in no acute distress. Dx: Increased in agitation , Psychosis, HTN, CAD, Dyslipemia, Angina pectoris. - Plan Plan: Patient will be follow by Psychiatry, Patient took her meds yesterday. she will continue with SNF meds. Patient refused draw blood. Will continue to monitor. Nutritional Asmnt/Malnutr-PDOC - Dietary Evaluation Malnutrition Findings (Please click <Entered> for more info): Nutritional Asmnt/Malnutrition Start: 10/15/17 13: 53 Text: Status: Complete Freq: Document 10/15/17 13:53 [facility] (Rec: 10/15/17 14:04 [facility] [email or web address]) Nutritional Asmnt/Malnutrition Patient General Information Nutritional Screening Moderate Risk Diagnosis psychosis NOS Pertinent Medical Hx/Surgical Hx Afib, CAD, CHF, HTN, dementia, schizophrenia, weakness, mastectomy Subjective Information Per records, PO intake 100%. Pertinent Medications os-avinash, colace, theragran Pertinent Labs No nutrition related labs Nutritional Hx/Data Height 1.7 m Height (Calculated Centimeters) 170.2 Current Weight (lbs) 97.522 kg Weight (Calculated Kilograms) 97.5 Weight (Calculated Grams) 64484.4 [place] Body Weight 135 Body Mass Index (BMI) 33.6 Weight Status Obese GI Symptoms GI Symptoms None Last BM 3/4 Difficult in: None Skin Integrity/Comment: intact, teri score 20 Current %PO Good (75-100%) Estimated Nutritional Goals BEE in Kcals: Adj wt of IBW Calories/Kcals/Kg 25-301 Kcals Calculated 9587-3980 Protein: Adj wt of IBW Protein g/k Protein Calculated 70 Fluid: ml 1750-2100ml (1ml/kcal) Nutritional Problem No current Nutrition Prob Problem N/A Intervention/Recommendation Comments 1. Continue with low sodium diet as ordered. 2. Monitor PO intake, wt, labs and skin integrity 3. F/U as low risk in 7 days, 10/22 Expected Outcomes/Goals Expected Outcomes/Goals 1. PO intake to meet at least 75% of nutritional needs. 2. Wt stability, skin to remain intact
--- NOTE | 2017-10-20 23:13 | Progress Notes ---
DATE: 10/20/2017 PSYCHIATRIC PROGRESS NOTE SUBJECTIVE: Staff was spoken to. The patient is interviewed. Mood is noted to be less irritable. Affect is appropriate. The patient is stating that she has been complaining with the medication, but does not want to go back to the previous placement and wants to go somewhere in [place]. it audit manager has been informed of the same and they have been looking for placement. The patient's psychotic symptoms are coming down at this time. No side effects to the medications are noted. ASSESSMENT: The patient is stabilizing and awaiting placement. PLAN: To continue the patient with the supportive therapy and followup. JOB# [id number]
[2017-10-21] MEDS: Multivitamin Tab PO SCH (08:22)
[2017-10-21] MEDS: Aspirin 81mg Chewable Tab PO SCH (08:22)
--- NOTE | 2017-10-21 08:35 | General Progress Note ---
Subjective - Review of Systems Service Date: 10/21/17 Subjective: I am fine Objective - Results Recent Labs: Laboratory Last Values Urine Source CLEAN C 10/10/17 18:16 Urine Color YELLOW 10/10/17 18:16 Urine Clarity CLEAR (CLEAR) 10/10/17 18:16 Urine pH 6.0 (4.6 - 8.0) 10/10/17 18:16 Ur Specific [place] <= 1.005 (1.005-1.030) 10/10/17 18:16 Urine Protein NEGATIVE mg/dL (NEGATIVE) 10/10/17 18:16 Urine Glucose (UA) NEGATIVE mg/dL (NEGATIVE) 10/10/17 18:16 Urine Ketones NEGATIVE mg/dL (NEGATIVE) 10/10/17 18:16 Urine Blood NEGATIVE (NEGATIVE) 10/10/17 18:16 Urine Nitrate NEGATIVE (NEGATIVE) 10/10/17 18:16 Urine Bilirubin NEGATIVE (NEGATIVE) 10/10/17 18:16 Urine Urobilinogen 0.2 E.U./dL (0.2 - 1.0) 10/10/17 18:16 Ur Leukocyte Esterase NEGATIVE (NEGATIVE) 10/10/17 18:16 Urine RBC NONE SEEN /hpf (0-5) 10/10/17 18:16 Urine WBC 0-2 /hpf (0-5) 10/10/17 18:16 Ur Epithelial Cells MODERATE /lpf (FEW) 10/10/17 18:16 Urine Bacteria FEW /hpf (NONE SEEN) 10/10/17 18:16 Urine Opiates Screen NEGATIVE (NEGATIVE) 10/10/17 18:16 Urine Methadone Screen NEGATIVE (NEGATIVE) 10/10/17 18:16 Ur Barbiturates Screen NEGATIVE (NEGATIVE) 10/10/17 18:16 Ur Tricyclics Screen NEGATIVE (NEGATIVE) 10/10/17 18:16 Ur Phencyclidine Scrn NEGATIVE (NEGATIVE) 10/10/17 18:16 Amphetamines Screen NEGATIVE (NEGATIVE) 10/10/17 18:16 U Methamphetamines Scrn NEGATIVE (NEGATIVE) 10/10/17 18:16 U Benzodiazepines Scrn NEGATIVE (NEGATIVE) 10/10/17 18:16 U Cocaine Metab Screen NEGATIVE (NEGATIVE) 10/10/17 18:16 U Cannabinoids Screen NEGATIVE (NEGATIVE) 10/10/17 18:16 - Physical Exam Vitals and I&O: Vital Signs Temp 98.4 F 10/21/17 06:51 Pulse 62 10/21/17 06:51 Resp 20 10/21/17 06:51 BP 123/68 10/21/17 06:51 Pulse Ox 98 10/21/17 06:51 Intake & Output 10/20/17 10/21/17 10/21/17 18:59 06:59 18:59 Intake Total 1420 Balance 1420 Intake: Oral 1420 Other: # Voids 2 Active Medications: Current Medications Amlodipine Besylate (Norvasc) 10 mg PO DAILY [facility] Stop: 12/10/17 08:59 Last Admin: 10/20/17 09:43 Dose: 10 mg Aspirin (Aspirin Chewable) 81 mg PO DAILY [facility] Stop: 12/10/17 08:59 Last Admin: 10/20/17 09:42 Dose: 81 mg Calcium Carbonate (Os-Avinash) 500 mg PO DAILY [facility] Stop: 12/10/17 08:59 Last Admin: 10/20/17 09:43 Dose: 500 mg Diphenhydramine HCl (Benadryl) 50 mg PO HS [facility] Stop: 12/09/17 20:59 Last Admin: 10/20/17 20:47 Dose: 50 mg Docusate Sodium (Colace) 250 mg PO DAILY [facility] Stop: 12/10/17 08:59 Last Admin: 10/20/17 09:43 Dose: 250 mg Hydralazine HCl (Apresoline) 50 mg PO TID [facility] Stop: 12/09/17 20:59 Last Admin: 10/20/17 20:46 Dose: 50 mg Hydrochlorothiazide (Hctz) 12.5 mg PO DAILY [facility] Stop: 12/10/17 08:59 Last Admin: 10/20/17 09:41 Dose: 12.5 mg Ibuprofen (Motrin) 600 mg PO Q8H PRN PRN Reason: PAIN Stop: 12/09/17 20:45 Last Admin: 10/14/17 21:02 Dose: 600 mg Isosorbide Mononitrate (Imdur) 60 mg PO DAILY [facility] Stop: 12/10/17 08:59 Last Admin: 10/20/17 09:42 Dose: 60 mg Lorazepam (Ativan) 0.5 mg PO Q6HR PRN; Protocol PRN Reason: Agitation Stop: 12/10/17 02:34 Last Admin: 10/18/17 20:46 Dose: 0.5 mg Losartan Potassium (Cozaar) 50 mg PO DAILY [facility] Stop: 12/10/17 08:59 Last Admin: 10/20/17 09:43 Dose: 50 mg Multivitamins/Vitamin C (Theragran) 1 tab PO DAILY [facility] Stop: 12/10/17 08:59 Last Admin: 10/20/17 09:42 Dose: 1 tab Oxybutynin Chloride (Ditropan) 5 mg PO DAILY [facility] Stop: 12/10/17 08:59 Last Admin: 10/20/17 09:43 Dose: 5 mg Risperidone (Risperdal) 3 mg PO BID [facility] Stop: 12/14/17 16:59 Last Admin: 10/20/17 16:48 Dose: Not Given Simvastatin (Zocor) 20 mg PO HS [facility] PRN Reason: Protocol Stop: 12/09/17 20:59 Last Admin: 10/20/17 20:47 Dose: 20 mg Zolpidem Tartrate (Ambien) 5 mg PO HS PRN PRN Reason: Insomnia Stop: 12/10/17 02:35 Last Admin: 10/20/17 20:47 Dose: 5 mg General: Alert, No acute distress HEENT: Atraumatic, PERRLA Neck: Supple Cardiovascular: Regular rate Lungs: Clear to auscultation Abdomen: Bowel sounds Extremities: Other (No edema) Neurological: Other (Walk with the assistance of a walker.) Skin: Other (Warm and dry) Psych/Mental Status: Other (Awake, alert, confused) Assessment/Plan - Problem List Patient Problems: All Active Problems AGITATED AND AGGRESSIVE BEHAVIOR (Acute) - Assessment Assessment: Current Active Problems Problem Status Onset AGITATED AND AGGRESSIVE BEHAVIOR Acute Patient is awake, alert, calm, in no acute distress. Dx: Increased in agitation , Psychosis, HTN, CAD, Dyslipemia, Angina pectoris. - Plan Plan: Patient will be follow by Psychiatry, Patient took her meds yesterday. she will continue with SNF meds. Patient refused draw blood. Will continue to monitor. Nutritional Asmnt/Malnutr-PDOC - Dietary Evaluation Malnutrition Findings (Please click <Entered> for more info): Nutritional Asmnt/Malnutrition Start: 10/15/17 13: 53 Text: Status: Complete Freq: Document 10/15/17 13:53 [facility] (Rec: 10/15/17 14:04 [facility] [email or web address]) Nutritional Asmnt/Malnutrition Patient General Information Nutritional Screening Moderate Risk Diagnosis psychosis NOS Pertinent Medical Hx/Surgical Hx Afib, CAD, CHF, HTN, dementia, schizophrenia, weakness, mastectomy Subjective Information Per records, PO intake 100%. Pertinent Medications os-avinash, colace, theragran Pertinent Labs No nutrition related labs Nutritional Hx/Data Height 1.7 m Height (Calculated Centimeters) 170.2 Current Weight (lbs) 97.522 kg Weight (Calculated Kilograms) 97.5 Weight (Calculated Grams) 62394.4 [place] Body Weight 135 Body Mass Index (BMI) 33.6 Weight Status Obese GI Symptoms GI Symptoms None Last BM 3/4 Difficult in: None Skin Integrity/Comment: intact, teri score 20 Current %PO Good (75-100%) Estimated Nutritional Goals BEE in Kcals: Adj wt of IBW Calories/Kcals/Kg 25-301 Kcals Calculated 9881-9308 Protein: Adj wt of IBW Protein g/k Protein Calculated 70 Fluid: ml 1750-2100ml (1ml/kcal) Nutritional Problem No current Nutrition Prob Problem N/A Intervention/Recommendation Comments 1. Continue with low sodium diet as ordered. 2. Monitor PO intake, wt, labs and skin integrity 3. F/U as low risk in 7 days, 10/22 Expected Outcomes/Goals Expected Outcomes/Goals 1. PO intake to meet at least 75% of nutritional needs. 2. Wt stability, skin to remain intact
--- NOTE | 2017-10-22 00:28 | Progress Notes ---
DATE: 10/21/2017 SUBJECTIVE: the patient was spoken to. The patient is interviewed. The mood is noted to be irritable today. Coping skills are noted to be poor. The patient has been present with paranoia, stating that people are doing things behind her back and she is frustrated with it. The patient has been doing fairly well until yesterday, but today, there has been a little bit of a difference in her attitude. The patient's insight and judgment are noted to be still impaired. Impulse control seems to be limited. ASSESSMENT: The patient is psychotic today. PLAN: To continue the patient with the supportive therapy and work with the corrections caseworker with regard to finding a placement for this patient. [facility]# [id number]
[2017-10-22] MEDS: Aspirin 81mg Chewable Tab PO SCH (08:21)
[2017-10-22] MEDS: Multivitamin Tab PO SCH (08:21)
--- NOTE | 2017-10-22 09:08 | General Progress Note ---
Subjective - Review of Systems Service Date: 08/24/16 Subjective: I am fine Objective - Results Recent Labs: Laboratory Last Values Urine Source CLEAN C 10/10/17 18:16 Urine Color YELLOW 10/10/17 18:16 Urine Clarity CLEAR (CLEAR) 10/10/17 18:16 Urine pH 6.0 (4.6 - 8.0) 10/10/17 18:16 Ur Specific [place] <= 1.005 (1.005-1.030) 10/10/17 18:16 Urine Protein NEGATIVE mg/dL (NEGATIVE) 10/10/17 18:16 Urine Glucose (UA) NEGATIVE mg/dL (NEGATIVE) 10/10/17 18:16 Urine Ketones NEGATIVE mg/dL (NEGATIVE) 10/10/17 18:16 Urine Blood NEGATIVE (NEGATIVE) 10/10/17 18:16 Urine Nitrate NEGATIVE (NEGATIVE) 10/10/17 18:16 Urine Bilirubin NEGATIVE (NEGATIVE) 10/10/17 18:16 Urine Urobilinogen 0.2 E.U./dL (0.2 - 1.0) 10/10/17 18:16 Ur Leukocyte Esterase NEGATIVE (NEGATIVE) 10/10/17 18:16 Urine RBC NONE SEEN /hpf (0-5) 10/10/17 18:16 Urine WBC 0-2 /hpf (0-5) 10/10/17 18:16 Ur Epithelial Cells MODERATE /lpf (FEW) 10/10/17 18:16 Urine Bacteria FEW /hpf (NONE SEEN) 10/10/17 18:16 Urine Opiates Screen NEGATIVE (NEGATIVE) 10/10/17 18:16 Urine Methadone Screen NEGATIVE (NEGATIVE) 10/10/17 18:16 Ur Barbiturates Screen NEGATIVE (NEGATIVE) 10/10/17 18:16 Ur Tricyclics Screen NEGATIVE (NEGATIVE) 10/10/17 18:16 Ur Phencyclidine Scrn NEGATIVE (NEGATIVE) 10/10/17 18:16 Amphetamines Screen NEGATIVE (NEGATIVE) 10/10/17 18:16 U Methamphetamines Scrn NEGATIVE (NEGATIVE) 10/10/17 18:16 U Benzodiazepines Scrn NEGATIVE (NEGATIVE) 10/10/17 18:16 U Cocaine Metab Screen NEGATIVE (NEGATIVE) 10/10/17 18:16 U Cannabinoids Screen NEGATIVE (NEGATIVE) 10/10/17 18:16 - Physical Exam Vitals and I&O: Vital Signs Temp 98.7 F 10/22/17 06:12 Pulse 61 10/22/17 08:21 Resp 18 10/22/17 06:12 BP 149/63 10/22/17 08:22 Pulse Ox 96 10/22/17 06:12 Intake & Output 10/21/17 10/22/17 10/22/17 18:59 06:59 18:59 Intake Total 1200 240 Balance 1200 240 Intake: Oral 1200 240 Other: # Voids 4 1 # Bowel Movements 1 Active Medications: Current Medications Amlodipine Besylate (Norvasc) 10 mg PO DAILY [facility] Stop: 12/10/17 08:59 Last Admin: 10/22/17 08:20 Dose: 10 mg Aspirin (Aspirin Chewable) 81 mg PO DAILY [facility] Stop: 12/10/17 08:59 Last Admin: 10/22/17 08:21 Dose: 81 mg Calcium Carbonate (Os-Avinash) 500 mg PO DAILY [facility] Stop: 12/10/17 08:59 Last Admin: 10/22/17 08:21 Dose: 500 mg Diphenhydramine HCl (Benadryl) 50 mg PO HS [facility] Stop: 12/09/17 20:59 Last Admin: 10/21/17 21:27 Dose: 50 mg Docusate Sodium (Colace) 250 mg PO DAILY [facility] Stop: 12/10/17 08:59 Last Admin: 10/22/17 08:19 Dose: 250 mg Hydralazine HCl (Apresoline) 50 mg PO TID [facility] Stop: 12/09/17 20:59 Last Admin: 10/22/17 08:19 Dose: 50 mg Hydrochlorothiazide (Hctz) 12.5 mg PO DAILY [facility] Stop: 12/10/17 08:59 Last Admin: 10/22/17 08:22 Dose: 12.5 mg Ibuprofen (Motrin) 600 mg PO Q8H PRN PRN Reason: PAIN Stop: 12/09/17 20:45 Last Admin: 10/14/17 21:02 Dose: 600 mg Isosorbide Mononitrate (Imdur) 60 mg PO DAILY [facility] Stop: 12/10/17 08:59 Last Admin: 10/22/17 08:16 Dose: 60 mg Lorazepam (Ativan) 0.5 mg PO Q6HR PRN; Protocol PRN Reason: Agitation Stop: 12/10/17 02:34 Last Admin: 10/21/17 21:27 Dose: 0.5 mg Losartan Potassium (Cozaar) 50 mg PO DAILY [facility] Stop: 12/10/17 08:59 Last Admin: 10/22/17 08:21 Dose: 50 mg Multivitamins/Vitamin C (Theragran) 1 tab PO DAILY [facility] Stop: 12/10/17 08:59 Last Admin: 10/22/17 08:21 Dose: 1 tab Oxybutynin Chloride (Ditropan) 5 mg PO DAILY [facility] Stop: 12/10/17 08:59 Last Admin: 10/22/17 08:20 Dose: 5 mg Risperidone (Risperdal) 3 mg PO BID [facility] Stop: 12/20/17 16:59 Last Admin: 10/21/17 18:04 Dose: Not Given Simvastatin (Zocor) 20 mg PO HS [facility] PRN Reason: Protocol Stop: 12/09/17 20:59 Last Admin: 10/21/17 21:27 Dose: 20 mg Zolpidem Tartrate (Ambien) 5 mg PO HS PRN PRN Reason: Insomnia Stop: 12/10/17 02:35 Last Admin: 10/20/17 20:47 Dose: 5 mg General: Alert, No acute distress HEENT: Atraumatic, PERRLA Neck: Supple Cardiovascular: Regular rate Lungs: Clear to auscultation Abdomen: Bowel sounds Extremities: Other (No edema) Neurological: Other (Walk with the assistance of a walker.) Skin: Other (Warm and dry) Psych/Mental Status: Other (Awake, alert, confused) Assessment/Plan - Problem List Patient Problems: All Active Problems AGITATED AND AGGRESSIVE BEHAVIOR (Acute) - Assessment Assessment: Current Active Problems Problem Status Onset AGITATED AND AGGRESSIVE BEHAVIOR Acute Patient is awake, alert, calm, in no acute distress. Dx: Increased in agitation , Psychosis, HTN, CAD, Dyslipemia, Angina pectoris. - Plan Plan: Patient will be follow by Psychiatry, Patient took her meds yesterday. she will continue with SNF meds. Patient refused draw blood. Will continue to monitor. Nutritional Asmnt/Malnutr-PDOC - Dietary Evaluation Malnutrition Findings (Please click <Entered> for more info): Nutritional Asmnt/Malnutrition Start: 10/15/17 13: 53 Text: Status: Complete Freq: Document 10/15/17 13:53 [facility] (Rec: 10/15/17 14:04 [facility] [email or web address]) Nutritional Asmnt/Malnutrition Patient General Information Nutritional Screening Moderate Risk Diagnosis psychosis NOS Pertinent Medical Hx/Surgical Hx Afib, CAD, CHF, HTN, dementia, schizophrenia, weakness, mastectomy Subjective Information Per records, PO intake 100%. Pertinent Medications os-avinash, colace, theragran Pertinent Labs No nutrition related labs Nutritional Hx/Data Height 1.7 m Height (Calculated Centimeters) 170.2 Current Weight (lbs) 97.522 kg Weight (Calculated Kilograms) 97.5 Weight (Calculated Grams) 23997.4 [place] Body Weight 135 Body Mass Index (BMI) 33.6 Weight Status Obese GI Symptoms GI Symptoms None Last BM 3/4 Difficult in: None Skin Integrity/Comment: intact, teri score 20 Current %PO Good (75-100%) Estimated Nutritional Goals BEE in Kcals: Adj wt of IBW Calories/Kcals/Kg 25-301 Kcals Calculated 0117-7169 Protein: Adj wt of IBW Protein g/k Protein Calculated 70 Fluid: ml 1750-2100ml (1ml/kcal) Nutritional Problem No current Nutrition Prob Problem N/A Intervention/Recommendation Comments 1. Continue with low sodium diet as ordered. 2. Monitor PO intake, wt, labs and skin integrity 3. F/U as low risk in 7 days, 10/22 Expected Outcomes/Goals Expected Outcomes/Goals 1. PO intake to meet at least 75% of nutritional needs. 2. Wt stability, skin to remain intact
--- NOTE | 2017-10-23 02:00 | Progress Notes ---
DATE: 10/22/2017 SUBJECTIVE: Staff was spoken to. The patient is interviewed. Mood is noted to be anxious. Affect is appropriate. Coping skills are noted to be improving. The patient has paranoia, but denies any command hallucinations. No side effects to the medications are noted. The patient has been able to verbalize the concerns rather than to act out at this time. ASSESSMENT: The patient is stabilizing. PLAN: To discharge the patient today for followup on an outpatient basis. [facility]# [id number]
== END 2017-10-22 13:55 | DRG 885 ==
LOC: ER 15:33 → GERO2 17:40 → GERO 10-12 18:19
PROVIDERS: ADMIT Psychiatry & Neurology Psychiatry; ATTEND Psychiatry & Neurology Psychiatry
DX: F20.0 Paranoid schizophrenia (principal); I11.0 Hypertensive heart disease with heart failure; F03.91 Unspecified dementia, unspecified severity, with behavioral disturbance; I48.91 Unspecified atrial fibrillation; I50.9 Heart failure, unspecified; E66.9 Obesity, unspecified; E78.5 Hyperlipidemia, unspecified; F17.210 Nicotine dependence, cigarettes, uncomplicated; F29 Unspecified psychosis not due to a substance or known physiological condition; I25.119 Atherosclerotic heart disease of native coronary artery with unspecified angina pectoris; E78.00 Pure hypercholesterolemia, unspecified; Z68.33 Body mass index [BMI] 33.0-33.9, adult; Z79.82 Long term (current) use of aspirin
CPT/HCPCS: 80307; 81001-TC; 93005; Z7610

== ENCOUNTER 2018-04-18 22:15 | Inpatient (IN) | payer MEDICARE, MEDICAID ==
[2018-04-18 23:03] VITALS: BP 183/90
[2018-04-19] MEDS: Multivitamin Tab PO SCH (08:57)
[2018-04-20] MEDS: Multivitamin Tab PO SCH (09:12)
[2018-04-20] MEDS: Aspirin 81mg Chewable Tab PO SCH (09:13)
--- NOTE | 2018-04-20 10:44 | Psychiatric Evaluation ---
DATE OF SERVICE: SUBJECTIVE: The patient was seen and evaluated. The patient's chart reviewed. This is an initial psychiatric evaluation covering for Dr. Prater. IDENTIFYING DATA: A 73-year-old female with a history of schizophrenia. JUSTIFICATION FOR ADMISSION: Severe psychotic symptoms. HISTORY OF PRESENT ILLNESS: A 73-year-old female with history of schizophrenia, who presented initially at [facility], who was then transferred from there after the patient was disorganized and believing that people after her was being afraid of people that there is no medication that will take the fear away and very paranoid about going back to live there. Today on [id number] evaluation, the patient is nonchalant and sits in her room. She reports, I am not sure why she is here, does not talk, does not give much more information beyond that. When attempting to discuss more information, she reports someone just brought me here because my hospital closed. When attempted to discuss what year, month and date it was; she just report "I don't know," extremely poor historian, disengaged throughout my interview. Medical problems were reviewed. Medical doctor to come in to do the evaluation. Current medications which were recommended and started at [facility] include risperidone ____ mg p.o. at bedtime and Haldol IM for severe agitated episodes. LEGAL HISTORY: Denied. FAMILY PSYCHIATRIC HISTORY: Unknown. PSYCHOSOCIAL AND MENTAL HEALTH HISTORY: No history of alcohol or drug use. CURRENT MEDICATIONS: She is on Haldol as needed for severe agitation and risperidone 2 mg p.o. at bedtime. Labs were reviewed. Reviewed medical records from the outside hospital, symptoms more consistent with schizophrenia with negative neurological workup. MENTAL STATUS EXAMINATION: She is calm and cooperative, but minimizing guarded, poor historian overall. Denied everything with limited insight, judgment and impulse control. ASSESSMENT AND PLAN: The patient is a 73-year-old female who is slow to process information with extensive history of schizophrenia, currently on risperidone 2 mg. We will continue obtaining more collateral baseline information and limit the use of Haldol and to be obtaining more information. PRIMARY DIAGNOSIS: Schizophrenia. SECONDARY DIAGNOSIS: None. MEDICAL DIAGNOSIS: Medical doctor pending evaluation, not recorded at this point. PLAN: 1. Admit the patient. 2. Continue with the risperidone. 3. Continue ____. 4. We will obtain more collateral baseline information. [facility]# [id number]
--- NOTE | 2018-04-20 16:15 | Progress Notes ---
DATE: 04/20/2018 SUBJECTIVE: Today, nursing staff reported that the patient mostly has been isolating, withdrawn and disengaged. Today on oday-kc-xdfb evaluation, the patient mostly ____ why she is here. Does not give much many ____ beyond that. MENTAL STATUS EXAMINATION: Neurocognitive, impaired and disorganized. ASSESSMENT AND PLAN: The patient is a 73-year-old female with a history of chronic schizophrenia, currently on risperidone 2 mg without any side effects. Denies any hallucinations. No EPS noted. Poor cognition. We will continue obtaining more collateral baseline information. She may benefit from Aricept. JOB# [id number]
[2018-04-21] MEDS: Multivitamin Tab PO SCH (09:56)
[2018-04-21] MEDS: Aspirin 81mg Chewable Tab PO SCH (09:57)
--- NOTE | 2018-04-21 15:23 | History & Physical ---
ADMIT DATE: 04/20/2018 REASON FOR ADMISSION: Psychiatric disorder. HISTORY OF PRESENT ILLNESS: This 73-year-old female with underlying history of hypertension, hyperlipidemia, chronic smoker, overactive bladder, dementia, psych disorders, admitted to [facility] Unit for underlying psychiatric illness by Dr. Prater. Dr. Prater requested medical H and P on this patient. The patient, during my evaluation, denies any medical complaints or concerns. PAST MEDICAL HISTORY: As per HPI. PAST SURGICAL HISTORY: No significant past surgeries reported. FAMILY HISTORY: Noncontributory. SOCIAL HISTORY: Daily smoker. No alcohol, tobacco or street drug use. CURRENT MEDICATIONS: On aspirin, Haldol, hydrochlorothiazide, hydralazine, oxybutynin, risperidone, simvastatin. REVIEW OF SYSTEMS: Denies any fevers, chills, no nausea, no vomiting no hematuria or dysuria. No new complaints. PHYSICAL EXAMINATION: VITAL SIGNS: Temperature 98.1, pulse 57, respirations 20, blood pressure 173/63, oxygen saturation is 97% on room air. Pain is 0/10. GENERAL APPEARANCE: The patient does not seem in acute distress. HEART: S1, S2 normal. CHEST: Clear to auscultation bilaterally. ABDOMEN: Soft, nontender. NEUROLOGIC: The patient is awake, but somewhat confused, follows commands, moves all extremities. EXTREMITIES: Negative for edema. No calf tenderness. AVAILABLE LABORATORY DATA: Reviewed. DIAGNOSES: 1. Hypertension. 2. Hyperlipidemia. 3. Nicotine dependency. 4. Obesity. 5. Overactive bladder. 6. Psychiatric disorder. PLAN: Psych management per psychiatrist. Continue patient's losartan, hydrochlorothiazide, and hydralazine. Continue simvastatin. Monitor blood pressure closely. Psych management per psychiatrist. The patient is medically stable. The patient's condition and plan discussed with nursing staff. JOB# [id number] [facility]
--- NOTE | 2018-04-21 21:26 | Progress Notes ---
DATE: 04/21/2018 SUBJECTIVE: The patient in the hospital, history of schizophrenia, coming from [facility], although disorganized, believing people are after her. The patient was afraid of that there was no treatment for her, very distressed, not answering most questions. On fjzf-bg-lqbt, the patient states she is here for high blood pressure, does not know why she is on the psych unit. States the year is 2017 in the month of April, stating she was coming from ____. ASSESSMENT: The patient with a waxing and waning organization and sometimes disoriented, seems that she is impulsive, unpredictable, bouts of psychosis. I did review the notes from Dr. Maddox. Continue Risperdal. Continue 14-day hold given ongoing symptoms, there are ongoing safety concerns. JOB# [id number]
[2018-04-22] MEDS: Multivitamin Tab PO SCH (09:45)
[2018-04-22] MEDS: Aspirin 81mg Chewable Tab PO SCH (09:47)
--- NOTE | 2018-04-22 15:31 | Progress Notes ---
DATE: 04/22/2018 SUBJECTIVE: The patient is currently in the hospital, unpredictable, easily agitated, irritable, argumentative at times. The patient initially admitted because of paranoias, concerns for psychotic behaviors, disorganized, believing that there was no treatment for her paranoias, noted to be disengaged, odd, threatening to harm other residents at her board and care, outbursts, agitation. On sdvu-ur-beel, the patient is minimizing her symptoms. She is pretty confused, disoriented, does not really know why she is here. PLAN: Continue to monitor. I will be increasing her dosages of medications. The patient remains still symptomatic, somewhat unruly. We will titrate and adjust medications. [facility]# [id number]
[2018-04-23] MEDS: Multivitamin Tab PO SCH (09:15)
[2018-04-23] MEDS: Aspirin 81mg Chewable Tab PO SCH (09:15)
--- NOTE | 2018-04-23 12:05 | Progress Notes ---
DATE: 04/23/2018 SUBJECTIVE: The patient in the hospital had been psychotic, delusional. The patient is still a poor historian, guarded, suspicious, can be hostile towards staff, observed talking to others in the room, nobody was there, still psychotic, underlying psychotic disorders, responding to internal stimuli. Poorly oriented, does not know why she is here, gets easily agitated, irritable, argumentative. Medications were noted. ASSESSMENT: The patient with ongoing symptoms, still confused, disoriented. PLAN: We will continue to monitor, titrate and adjust medications. Given her ongoing psychotic symptoms, she is not safe for discharge. JOB# [id number]
--- NOTE | 2018-04-23 22:18 | General Progress Note ---
Subjective - Review of Systems Service Date: 04/22/18 Subjective: Patient seen and examined doing ok BP seems fluctuating Objective - Physical Exam Vitals and I&O: Vital Signs Temp 97.9 F 04/23/18 20:09 Pulse 60 04/23/18 20:57 Resp 20 04/23/18 20:09 BP 189/77 04/23/18 20:57 Pulse Ox 94 04/23/18 20:09 Intake & Output 04/23/18 04/23/18 04/24/18 06:59 18:59 06:59 Intake Total 240 120 Balance 240 120 Intake: Oral 240 120 Other: # Voids 3 3 # Bowel Movements 0 0 Active Medications: Current Medications Acetaminophen (Tylenol) 650 mg PO Q4HR PRN PRN Reason: Mild Pain / Temp above 100 Stop: 06/17/18 23:03 Aspirin (Aspirin Chewable) 81 mg PO DAILY [facility] Stop: 06/19/18 08:59 Last Admin: 04/23/18 09:15 Dose: 81 mg Docusate Sodium (Colace) 250 mg PO DAILY [facility] Stop: 06/18/18 09:29 Last Admin: 04/23/18 09:15 Dose: 250 mg Haloperidol (Haldol) 2.5 mg PO Q6HR PRN; Protocol PRN Reason: Agitation Stop: 05/03/18 00:05 Last Admin: 04/22/18 17:26 Dose: 2.5 mg Hydralazine HCl (Apresoline) 25 mg PO QID [facility] Stop: 05/03/18 08:59 Last Admin: 04/23/18 20:57 Dose: 25 mg Hydrochlorothiazide (Hctz) 12.5 mg PO DAILY [facility] Stop: 06/19/18 08:59 Last Admin: 04/23/18 09:15 Dose: 12.5 mg Losartan Potassium (Cozaar) 50 mg PO DAILY [facility] Stop: 06/19/18 08:59 Last Admin: 04/23/18 09:15 Dose: 50 mg Multivitamins/Vitamin C (Theragran) 1 tab PO DAILY [facility] Stop: 06/18/18 08:59 Last Admin: 04/23/18 09:15 Dose: 1 tab Oxybutynin Chloride (Ditropan) 5 mg PO DAILY [facility] Stop: 06/19/18 08:59 Last Admin: 04/23/18 09:15 Dose: 5 mg Risperidone (Risperdal) 2 mg PO HS [facility]; Protocol Stop: 05/03/18 20:59 Last Admin: 04/23/18 20:57 Dose: 2 mg Risperidone (Risperdal) 1 mg PO DAILY [facility]; Protocol Stop: 06/22/18 10:29 Last Admin: 04/23/18 10:54 Dose: Not Given Simvastatin (Zocor) 20 mg PO HS [facility]; Protocol Stop: 06/19/18 20:59 Last Admin: 04/23/18 20:56 Dose: 20 mg Cardiovascular: Regular rate Lungs: Clear to auscultation Assessment/Plan - Assessment Assessment: HTN HYPERLIPIDMIA OVERACTIVE BLADDER DEMENTIA Nutritional Asmnt/Malnutr-PDOC - Dietary Evaluation Malnutrition Findings (Please click <Entered> for more info): Nutritional Asmnt/Malnutrition Start: 04/23/18 14: 59 Text: Status: Complete Freq: Protocol: Document 04/23/18 14:59 LCHENG (Rec: 04/23/18 15:09 [email or web address] [email or web address]) Nutritional Asmnt/Malnutrition Patient General Information Nutritional Screening Moderate Risk Diagnosis psychosis Pertinent Medical Hx/Surgical Hx HTN, hyperlipidemia, chronic smoker, overactive bladder, dementia, psycho disorders Subjective Information per nurse note, pt is only oriented to self, paronoid. Per EMR, PO intake 100%. Current Diet Order/ Nutrition Support cardiac Pertinent Medications colace, theragran, risperdal Pertinent Labs no labs Nutritional Hx/Data Height 1.7 m Height (Calculated Centimeters) 170.2 Current Weight (lbs) 97.522 kg Weight (Calculated Kilograms) 97.5 Weight (Calculated Grams) 33588.4 [place] Body Weight 135 Body Mass Index (BMI) 33.6 Weight Status Obese GI Symptoms GI Symptoms None Last BM 9 Difficult in: None Skin Integrity/Comment: intact Current %PO Good (75-100%) Estimated Nutritional Goals BEE in Kcals: Adj wt of IBW Calories/Kcals/Kg 25-30 Kcals Calculated 7687-2575 Protein: Adj wt of IBW Protein g/k.8-1 Protein Calculated 56-70 Fluid: ml 1750-2100ml (1ml/kcal) Nutritional Problem No current Nutrition Prob Problem N/A Malnutrition Alert Is there a minimum of two criteria No selected? Query Text:Check all the applicable criteria. A minimum of two criteria are recommended for diagnosis of either severe or non-severe malnutrition. Malnutrition Related to Morbid Obesity Malnutrition related to morbid obesity No Intervention/Recommendation Comments 1. Continue with cardiac diet as ordered. 2. Monitor PO intake, wt, labs and skin integrity 3. F/U as low risk in 7 days, 04/30 Expected Outcomes/Goals Expected Outcomes/Goals 1. PO intake to meet at least 75% of nutritional needs. 2. Wt stability, skin to remain intact, labs to approach WNL.
[2018-04-24] MEDS: Multivitamin Tab PO SCH (09:03)
[2018-04-24] MEDS: Aspirin 81mg Chewable Tab PO SCH (09:03)
--- NOTE | 2018-04-24 11:51 | Progress Notes ---
DATE: 04/24/2018 SUBJECTIVE: The patient is currently in the hospital, poorly oriented. She has been calmer, seems suspicious sometimes and noted to be responding to internal stimuli, mostly in bed, withdrawn, isolative, concerns about her mood symptoms. The patient had been living in a room and board, has been acting unruly prior to coming to [facility]. Still noted to be guarded and suspicious, talking to people in her room and there is nobody in the room. Sleeping fairly well, eating well. Recent dose increase of Risperdal. No EPS. No side effects. ASSESSMENT AND PLAN: The patient remains asymptomatic, ongoing safety concerns, ongoing concerns about underlying psychotic symptoms. We will continue to monitor. Medications were noted. We will continue to titrate Risperdal. [facility]# [id number]
--- NOTE | 2018-04-25 07:35 | Progress Notes ---
DATE: 04/25/2018 SUBJECTIVE: The patient is alert and oriented to person, place, does not know where she is, does not quite sure about the year, __not month,__ remains paranoid, hyperverbal on lxaj-de-bhim, she is irritable, upset, remains labile, confused, disoriented, does not know where she is or what is going on, talks about her father being alive, but then states that she is not quite sure where he is, "maybe is in a different country." No agitation, no escalation of behaviors, no violence. The patient had been staying at a __room and__ board. It seems that she will be able to be accepted back there, but only if the patient is medication compliant, so as of right now, we have no confirmation of placement as the patient is still not stable, still symptomatic. ASSESSMENT: The patient remains unpredictable, agitated, irritable, argumentative time, still with ongoing psychotic symptoms, seems to be responding to internal stimuli. PLAN: We will continue to monitor, titrate and adjust medications. The patient may benefit from escalation of medications. Medications were also reviewed. JOB# [id number] ARABELLA
[2018-04-25] MEDS: Aspirin 81mg Chewable Tab PO SCH (08:56)
[2018-04-25] MEDS: Multivitamin Tab PO SCH (08:57)
[2018-04-26] MEDS: Aspirin 81mg Chewable Tab PO SCH (08:30)
[2018-04-26] MEDS: Multivitamin Tab PO SCH (08:33)
[2018-04-27] MEDS: Aspirin 81mg Chewable Tab PO SCH (09:25)
[2018-04-27] MEDS: Multivitamin Tab PO SCH (09:30)
--- NOTE | 2018-04-27 18:34 | Progress Notes ---
DATE: 04/26/2018 SUBJECTIVE: The patient was seen and evaluated. The patient's chart reviewed. Overnight, the patient observed to be continued to remain paranoid. Today on yzld-of-ljdw evaluation, the patient continues to be suspicious, believing that her father is being alive. When asked where she is currently living, the patient reports "I don't know." MENTAL STATUS EXAMINATION: Still neurocognitively impaired and some mild paranoia. ASSESSMENT AND PLAN: The patient continues to be unpredictable, agitated, and irritable at times with ongoing psychotic symptoms. We will continue monitoring and evaluate. She continues to engage in internal stimuli. We will continue with primary psychiatrist's treatment plan and goal which includes Haldol 2.5 p.o. p.r.n. agitation, hydralazine, Risperdal 2 mg at nighttime and 0.5 in the morning with Zocor at 20 mg a day. [facility]# [id number]
[2018-04-28] MEDS: Multivitamin Tab PO SCH (08:48)
[2018-04-28] MEDS: Aspirin 81mg Chewable Tab PO SCH (08:49)
--- NOTE | 2018-04-28 09:40 | Progress Notes ---
DATE: 04/27/2018 The patient's chart reviewed. Covering for Dr. Prater. Today on xgke-gp-wvin evaluation, the patient at times presents on selectively mute, disengaging at times, minimally interactive and a poor historian overall. On examination, continues to be neurocognitively impaired, overwhelmed. ASSESSMENT AND PLAN: The patient is a 73-year-old female, severely in distraught by the severe neurocognitive impairment that impairs ability to maintain food, long-term, clothing outside of the structured environment. We will continue working very closely with the manager case for safety disposition once the patient further stabilized. JOB# [id number]
--- NOTE | 2018-04-28 17:46 | Progress Notes ---
DATE: 04/28/2018 SUBJECTIVE: The patient is calm, more cooperative. Denying any overt paranoia, mostly to herself, staying to herself, preoccupied, poorly oriented, does not really know why she is here or where she is going to go. It is unclear where she is going to go. She just wants to go to [facility], noted to be withdrawn likes to spend time in the dark. Sleeping fairly well, eating well. Still at times suspicious of others. ASSESSMENT: The patient remains symptomatic, withdrawn, ongoing concerns about psychosis. PLAN: We will continue to monitor. The patient remains somewhat disengaged, mostly keeps to herself. We will coordinate care with social work regarding safe discharge plan and good psychiatric followup. JOB# [id number]
[2018-04-29] MEDS: Aspirin 81mg Chewable Tab PO SCH (08:55)
[2018-04-29] MEDS: Multivitamin Tab PO SCH (08:55)
--- NOTE | 2018-04-30 02:31 | Progress Notes ---
DATE: 04/29/2018 SUBJECTIVE: The patient is oriented to name, place. She does not know why she is here. She does not know the year or the month, remains depressed, withdrawn in bed most of the day. No anger outbursts, resting comfortably, sometimes mumbling to self, ongoing psychotic symptoms, preoccupied, ongoing concerns about her impulsivity, impulse control. The patient is still complaining of pain. This is being addressed. Medications were reviewed. Currently on Risperdal. Recent dose increase. ASSESSMENT: The patient remains asymptomatic, ongoing concerns for underlying psychosis. She is staying in a board and care, likely approaching her baseline. We will continue to monitor for any side effects, recent dose increase of Risperdal. JOB# [id number]
[2018-04-30] MEDS: Multivitamin Tab PO SCH (08:29)
[2018-04-30] MEDS: Aspirin 81mg Chewable Tab PO SCH (08:29)
--- NOTE | 2018-04-30 21:28 | Progress Notes ---
DATE: 04/30/2018 SUBJECTIVE: The patient is oriented to name, place, does not know why she is in the hospital, mostly depressed, withdrawn, complaining of some pain. Denies auditory or visual hallucinations. States she lives in a room and board. The patient is still suspicious, mostly withdrawn, keeps to herself, eating fairly well. Sleeping fairly well. Still remains confused, disoriented, not really engaged, interview likely, she is approaching her baseline in regards to her level of confusion, social isolation and remains preoccupied. MEDICATIONS: Reviewed. ASSESSMENT: The patient remains symptomatic. Ongoing safety concerns, seems to be doing better with increased dose of Risperdal, but she is somewhat depressed and withdrawn. PLAN: We will initiate low dose of an antidepressant medication such as Lexapro to see if this will help with her mood symptoms, social isolation, energy, apparent melancholy. JOB# [id number]
[2018-05-01] MEDS: Multivitamin Tab PO SCH (08:30)
[2018-05-01] MEDS: Aspirin 81mg Chewable Tab PO SCH (08:30)
--- NOTE | 2018-05-01 15:48 | Progress Notes ---
DATE: 05/01/2018 SUBJECTIVE: The patient was seen today 05/01/2018. She does not want to talk to me, irritable, upset, had been alluding to feeling depressed and down. Some vague pain symptoms yesterday, poorly oriented, somewhat impulsive, unpredictable, paranoid at times, withdrawn, mostly in her room, likely approaching her baseline. No anger outburst. No agitation noted during the ___past 48 hours _. Preoccupied, still, but less, as she is taking her medications, no side effects. She eating fairly well, sleeping well. ASSESSMENT: The patient likely approaching her baseline. Some psychotic symptoms noted, but she does seem to be improving. We will monitor for further 24 hours. [facility]# [id number] MTDKiley
[2018-05-02] MEDS: Aspirin 81mg Chewable Tab PO SCH (08:11)
[2018-05-02] MEDS: Multivitamin Tab PO SCH (08:12)
--- NOTE | 2018-05-02 18:54 | Discharge Summary ---
DATE OF DISCHARGE: 05/02/2018 DATE OF DISCHARGE: 05/02/2018. JUSTIFICATION FOR HOSPITALIZATION: History of schizophrenia, paranoid. HISTORY OF PRESENT ILLNESS: A 73-year-old female, who presented to [facility]. The patient disorganized, believing people are after her and afraid of people, acting bizarre, talking to self, mumbling to self, talking to people in the room that were not there. Poor historian, disengaged, confused. PAST PSYCHIATRIC HISTORY: Schizophrenia. MEDICATIONS: Noted. Risperdal. LABORATORY DATA: Noted. LEGAL: Denies. SOCIAL HISTORY: Living in a board and care type facility, a assisted type facility. MENTAL STATUS EXAMINATION: Please see full psych eval for details. PROVISIONAL DIAGNOSIS: Schizophrenia. Under medical, please see full H and P. HOSPITAL COURSE: After initial assessment, the patient was started on Risperdal. Risperdal was titrated. Over the course of the hospitalization, her mood improved, affect improved, getting along well with staff and peers, sleeping well, eating well, no agitation, no escalation of behaviors. No longer mumbling to self. No longer psychotic, more hopeful and optimistic. Denying any SI, more engaged, friendly, calm. CONDITION UPON DISCHARGE: Improved, better ADLs, allowing ADLs, better eye contact. AO mainly to name, place, not quite sure why she was here, not year, not month. Mood "better." Affect constricted. Thought processes, some confusion noted. No SI, no HI, no psychosis. Insight and judgment better. PROVISIONAL DIAGNOSIS: Schizophrenia. Under medical, please see full H and P. PROGNOSIS: The patient follows up with outpatient mental health services and remains compliant with treatment. Prognosis will improve, otherwise guarded. JOB# [id number]
[2018-05-03] MEDS: Aspirin 81mg Chewable Tab PO SCH (08:22)
[2018-05-03] MEDS: Multivitamin Tab PO SCH (08:22)
--- NOTE | 2018-05-03 09:24 | Progress Notes ---
DATE: 05/03/2018 The patient is calm, cooperative, delays in her discharge. I put the discharge order in yesterday. No agitation, no escalation of behaviors. Still depressed, withdrawn, mostly isolative, psychotic symptoms noted, taking the medications. No SI. No HI. ASSESSMENT: The patient is calm, more cooperative pending discharge, safe disposition. PLAN: We will continue to monitor. We will adjust medications if needed. We will await case management to arrange a safe disposition. JOB# [id number]
[2018-05-03] MEDS: Escitalopram Oxalate 5 mg Tab PO SCH (10:05)
--- NOTE | 2018-05-04 06:34 | Progress Notes ---
DATE: 05/04/2018 The patient is calm and cooperative. There were delays in discharge. Noted to be withdrawn, mostly isolative, depressed, but no psychotic symptoms. No voices, hallucinations or paranoia. Sleeping well, eating well. ASSESSMENT: The patient is calm and cooperative. Safe disposition has been confirmed. We will continue to monitor. We will attempt to discharge the patient tomorrow. JOB# [id number]
[2018-05-04] MEDS: Escitalopram Oxalate 5 mg Tab PO SCH (08:39)
[2018-05-04] MEDS: Aspirin 81mg Chewable Tab PO SCH (08:40)
[2018-05-04] MEDS: Multivitamin Tab PO SCH (08:44)
[2018-05-05] MEDS: Multivitamin Tab PO SCH (09:55)
[2018-05-05] MEDS: Escitalopram Oxalate 5 mg Tab PO SCH (09:55)
[2018-05-05] MEDS: Aspirin 81mg Chewable Tab PO SCH (09:57)
--- NOTE | 2018-05-06 02:42 | Discharge Summary ---
DATE OF DISCHARGE: 05/05/2018 The patient originally was to be discharged on 05/02/2018. However, due to delays in discharge, discharge happened on 05/05/2018. The patient is calm, cooperative, no SI, no HI, no intent, no plan, overt psychotic symptoms. Please see full discharge summary. [facility]# [id number]
== END 2018-05-05 10:50 | disposition home or self-care (01) | DRG 885 ==
LOC: GERO 22:15
PROVIDERS: ADMIT Psychiatry & Neurology Psychiatry; ATTEND Psychiatry & Neurology Psychiatry
DX: F20.9 Schizophrenia, unspecified (principal); I10 Essential (primary) hypertension; E78.5 Hyperlipidemia, unspecified; E66.9 Obesity, unspecified; N32.81 Overactive bladder; F17.210 Nicotine dependence, cigarettes, uncomplicated; F29 Unspecified psychosis not due to a substance or known physiological condition; Z68.33 Body mass index [BMI] 33.0-33.9, adult
CPT/HCPCS: 83036-90; 90899; G0410; Z7610

== ENCOUNTER 2018-06-10 15:40 | Inpatient (IN) | payer MEDICARE, OTHER ==
[2018-06-10 16:16] VITALS: BP 145/65
[2018-06-10] MEDS ORDERED: Maalox 30 mL Cup PO PRN (18:38)
[2018-06-10] MEDS ORDERED: Magnesium Hydroxide (MOM) 30 mL UDC PO PRN (18:38)
--- NOTE | 2018-06-11 03:11 | Psychiatric Evaluation ---
DATE OF SERVICE: 06/10/2018 IDENTIFYING DATA: The patient is a 73-year-old -Cong[place] woman who is currently homeless. Information obtained by directly interviewing the patient as well as reviewing the admission papers and they are reliable. JUSTIFICATION FOR HOSPITALIZATION: The patient is admitted on 5250 for being gravely disabled. CHIEF COMPLAINT: "I don't know why I had to be here. I don't care." HISTORY OF PRESENT ILLNESS: This is one of multiple psychiatric hospitalizations for this patient who has been diagnosed to have schizophrenia, chronic paranoid type and has been noncompliant to the medication. The patient is screaming and yelling and he is also reported to have been not making any sense. The patient was diagnosed initially with schizophrenia and has been started on the Risperdal and low dose of Lexapro and the patient has been placed on 5250 and transferred over here for further stabilization. During the evaluation, the patient has been screaming and yelling and is not providing much of information. Sleep and appetite prior to the hospitalization are reported to be poor. PAST PSYCHIATRIC HISTORY: Please refer to the above. The patient was hospitalized on multiple occasions. MEDICAL HISTORY: Physical examination is requested to be done by Dr. Jeff. SUBSTANCE ABUSE HISTORY: None. PHYSICAL OR SEXUAL ABUSE HISTORY: None. LEGAL PROBLEMS: None at this time. STRENGTH AND ASSETS: The patient is motivated. MENTAL STATUS EXAMINATION: The patient is a 73-year-old woman looking her stated age, superficially cooperative. Eye contact is poor. Mood is noted to be irritable. Affect is constricted. Coping skills at this time are noted to be poor. Insight and judgment are noted to be impaired. No side effects to the medications are noted. The patient has been having difficult time to cope with the stress. The patient's short term memory is noted to be poor. Long-term memory seems to be fair, but the patient is getting easily irritable and frustrated. The patient is very paranoid, but denies any command hallucinations. DIAGNOSTIC IMPRESSION: AXIS I: Schizophrenia, chronic paranoid type with acute exacerbation. AXIS II: None. AXIS III: As per Dr. Jeff. IMMEDIATE TREATMENT PLAN: The patient is going to be observed on inpatient unit, provided with supportive psychotherapy. The patient is going to be closely monitored. Once stabilized, the patient is going to be discharged to [facility] to be followed up on an outpatient basis. [facility]# [id number]
[2018-06-11] MEDS: Multivitamin Tab PO SCH (08:51)
[2018-06-11] MEDS: Escitalopram Oxalate 5 mg Tab PO SCH (08:52)
--- NOTE | 2018-06-11 10:45 | Progress Notes ---
DATE: 06/11/2018 SUBJECTIVE: Staff was spoken to. The patient is interviewed. Mood is noted to be irritable. Affect is constricted. Continues to be paranoid and not making much sense. Insight and judgment are noted to be still impaired. Impulse control is noted to be poor. Coping skills are noted to very poor. The patient is currently medicated with Haldol and Risperdal with an idea to go with the Haldol Decanoate. PLAN: To continue the patient with the supportive therapy and closely monitor the patient. The patient is being monitored for any of the side effects from the medication. [facility]# [id number]
[2018-06-12] MEDS: Multivitamin Tab PO SCH (08:20)
[2018-06-12] MEDS: Escitalopram Oxalate 5 mg Tab PO SCH (08:21)
--- NOTE | 2018-06-12 11:14 | History and Physical ---
History of Present Illness - HPI Chief Complaint: agitation HPI: This is a 73-year old female who is a admitted to [facility] due to increase in agitation and patient was found wandering in the streets. Vital Signs: Last Vital Signs Temp 97.9 F 06/12/18 06:02 Pulse 70 06/12/18 06:02 Resp 20 06/12/18 06:02 BP 147/78 06/12/18 06:02 Pulse Ox 97 06/12/18 06:02 Past Medical History Other History: psychosis htn Family Medical History - Family Member Mother History Unknown: Yes Ethnicity: Unknown Living Status: Unknown Hx Family Cancer: (unknown) Hx Family Coronary Artery Disease: (unknown) Hx Family Congestive Heart Failure: (unknown) Hx Family Hypertension: (unknown) Hx Family Stroke: (unknown) Hx Family Diabetes: (unknown) Hx Family Seizures: (unknown) Hx Family Dementia: (unknown) Hx Family AIDS: (unknown) Hx Family HIV: No Hx Family COPD: (unknown) Hx Family Hepatitis: (unknown) Hx Family Psychiatric Problems: (unknown) Hx Family Tuberculosis: (unknown) Social History Smoke: No Alcohol: None Drugs: None Lives: Alf - Medications Home Medications: Home Medication Medication Instructions Recorded Type Risperidone 2 mg PO TID 10/10/17 History Calcium Carbonate [Os-Silvestre] 500 mg PO DAILY tab 10/22/17 Rx Diphenhydramine HCL [Benadryl] 50 mg PO HS cap 10/22/17 Rx Hydralazine [Apresoline*] 50 mg PO TID tab 10/22/17 Rx Ibuprofen [Motrin*] 600 mg PO Q8H PRN tab 10/22/17 Rx Isosorbide Mononitrate [Imdur] [address] 10/22/17 Rx Lorazepam [Ativan] 0.5 mg PO Q6HR PRN tab 10/22/17 Rx Multivitamin [Theragran] 1 tab PO DAILY tab 10/22/17 Rx Zolpidem Tartrate [Ambien] 5 mg PO HS PRN tab 10/22/17 Rx amLODIPine Besylate [Norvasc*] 10 mg PO DAILY tab 10/22/17 Rx risperiDONE [RisperDAL] 3 mg PO BID tab 10/22/17 Rx Acetaminophen [Tylenol] 650 mg PO Q4HR PRN tab 05/05/18 Rx Aspirin [Aspirin Chewable] 81 mg PO DAILY ctb 05/05/18 Rx Docusate Sodium [Colace] 250 mg PO DAILY sgl 05/05/18 Rx Escitalopram Oxalate [Lexapro] 5 mg PO DAILY tab 05/05/18 Rx Hydralazine [Apresoline*] 25 mg PO QID tab 05/05/18 Rx Hydrochlorothiazide [Hctz*] 12.5 mg PO DAILY tab 05/05/18 Rx Losartan Potassium [Cozaar] 50 mg PO DAILY tab 05/05/18 Rx Multivitamin [Theragran] 1 tab PO DAILY tab 05/05/18 Rx Oxybutynin Chloride [Ditropan*] 5 mg PO DAILY tab 05/05/18 Rx Simvastatin [Zocor*] 20 mg PO HS tab 05/05/18 Rx risperiDONE [RisperDAL] 0.5 mg PO DAILY tab 05/05/18 Rx - Allergies Allergies/Adverse Reactions: Allergies Allergy/AdvReac Type Severity Reaction Status Date / Time No Known Allergies Allergy Verified 10/10/17 16:39 Review of Systems - Review of Systems Constitutional: Report: No Significant Eyes: Report: No Significant Respiratory: Report: No Significant Cardiovascular: Report: No Significant Neurological: Report: No Significant Physical Exam - Physical Exam HEENT: Report: Ears Nose Throat within normal limits Neck: Report: Within normal limits Cardiovascular Systems: Report: +s1/s2 noted, Regular, Rate and Rhythm Respiratory: Report: Breath Sounds are within normal limits, Clear to Auscultation of lung griffin Abdomen: Report: Non-tender to palpation Back: Report: Inspection of back is within normal limits. Extremities: Report: Non-tender to palpation. Skin: Report: Color of skin is within normal limits, Warm, Dry Neuro/Psych: Report: Mood affect is within normal limits - Assessment Assessment: htn psychosis - Plan Plan: fall precautions monitor bp continue current plan of care
--- NOTE | 2018-06-12 11:43 | Progress Notes ---
DATE: 06/12/2018 PSYCHIATRIC PROGRESS NOTE PROGRESS ON THE UNIT: Staff was spoken to. The patient is interviewed. Mood is noted to be depressed. Affect is constricted. The patient is isolative and withdrawn. Coping skills at this time are noted to be poor. Sleep and appetite are also noted to be very poor. The patient has been having difficult time to cope with the stress, continues to be irritable and angry. The patient has been isolative and withdrawn, continues to be paranoid at this time. No side effects to the medications are noted. The patient has no coping skills, continues to be paranoid, and has been insisting on having her ____. The patient is placed on Haldol 2 mg twice a day with an idea to gradually increase the dose on the haloperidol and then follow the patient with supportive therapy. [facility]# [id number]
--- NOTE | 2018-06-12 14:54 | Consultation ---
DATE OF CONSULTATION: 06/11/2018 REFERRING PHYSICIAN: Felipe Dahl MD TYPE OF CONSULTATION: Psychology. HISTORY OF PRESENT ILLNESS: The patient is a 73-year-old -[place] female. According to the record, the patient is currently homeless. The following is by record review and by the patient's self-report. The patient is being admitted on a 5250 hold for being gravely disabled. Upon interview, the patient states that she does not know why she is being hospitalized and that she does not care. According to the record, the patient has a history of schizophrenia, chronic paranoid type and has been noncompliant with medication. The patient is easily agitated and yelling at the time of this clinical interview. The patient is not making much sense or providing much information. The patient did not answer questions about suicidal ideation, plan or intention. PAST MEDICAL HISTORY: Please see history and physical by Dr. Jeff. PAST PSYCHIATRIC HISTORY: The patient has multiple previous hospitalizations. It is unknown whether the patient is under the care of a psychiatrist or any other provider at the time of this clinical interview. SUBSTANCE ABUSE HISTORY: The patient did not answer these questions. PSYCHOSOCIAL HISTORY: The patient did not answer questions about occupational or educational history or jainism affiliation. She did not answer questions about history of physical or sexual abuse or any current legal problems. The patient did not answer questions about family relationships or support system. MENTAL STATUS EXAMINATION: The patient appears to be her stated age. The patient's attitude is uncooperative. Eye contact is poor. Speech is pressured and loud with intermittent yelling episodes. Mood is irritable. Affect is constricted. Thought process shows to be confused as well as loose associations. The patient is not answering clinical questions relevantly or coherently. The patient did not answer questions about experiencing auditory or visual hallucinations. There seems to be some evidence of possible paranoid ideation. The patient's behavior is easily agitated and difficult to redirect on the unit. Impulse control is impaired. Concentration is poor due to interference with possible psychotic process. The patient did not participate in the memory assessment. It appears immediate and short term memory is most likely impaired. Sensorium is alert and oriented to self only. The patient did not participate in the interpretation of proverbs. Insight is impaired. Judgment is impaired. DIAGNOSTIC IMPRESSION: [place] I: History of schizophrenia, chronic paranoid type with acute exacerbation. [place] II: Deferred. [place] III: Per Dr. Jeff. TREATMENT PLAN: The patient has been seen by Dr. Dahl for psychiatric evaluation and for the management of the patient's psychotropic medications. We will provide supportive psychotherapy to include reality orientation, differentiation and integration. We will provide de-escalation and limit setting for the patient to be able to follow through with staff direction. We will provide motivational enhancement for the patient to become compliant and stay compliant with all aspects of her care and treatment. We will encourage the patient to be able to demonstrate emotional and self-regulation prior to her discharge. We will provide coping strategies for phase of life issues as well as for chronic long-term severe mental illness. Thank you, Dr. Dahl for this consult and the opportunity to participate in this patient's care. JOB# [id number] [email or web address]
[2018-06-13] MEDS: Multivitamin Tab PO SCH (10:13)
[2018-06-13] MEDS: Escitalopram Oxalate 5 mg Tab PO SCH (10:13)
--- NOTE | 2018-06-13 16:19 | Internal Medicine Prog Note ---
Internal Medicine Subjective - Subjective Patient seen and examined:: chart reviewed Patient is:: awake, confused Per staff patient has:: no adverse event Internal Medicine Objective - Physical Exam Vitals and I&O: Vital Signs Temp 97.8 F 06/13/18 14:00 Pulse 78 06/13/18 15:36 Resp 19 06/13/18 14:00 BP 187/77 06/13/18 15:44 Pulse Ox 100 06/13/18 14:00 Intake & Output 06/12/18 06/13/18 06/13/18 18:59 06:59 18:59 Other: # Bowel Movements 1 Active Medications: Current Medications Acetaminophen (Tylenol) 650 mg PO Q4HR PRN PRN Reason: Mild Pain / Temp above 100 Stop: 08/09/18 18:37 Al Hydrox/Mg Hydrox/Simethicone (Maalox) 30 ml PO Q4HR PRN PRN Reason: GI DISTRESS Stop: 08/09/18 18:37 Amlodipine Besylate (Norvasc) 10 mg PO DAILY [facility] Stop: 08/13/18 08:59 Calcium Carbonate (Os-Silvestre) 500 mg PO DAILY [facility] Stop: 08/13/18 08:59 Docusate Sodium (Colace) 250 mg PO DAILY [facility] Stop: 08/13/18 08:59 Escitalopram Oxalate (Lexapro) 5 mg PO DAILY [facility]; Protocol Stop: 08/10/18 08:59 Last Admin: 06/13/18 10:13 Dose: 5 mg Haloperidol (Haldol) 2 mg PO BID [facility]; Protocol Stop: 08/09/18 21:59 Last Admin: 06/13/18 10:13 Dose: 2 mg Hydralazine HCl (Apresoline) 25 mg PO QID [facility] Stop: 08/12/18 16:59 Hydrochlorothiazide (Hctz) 12.5 mg PO DAILY [facility] Stop: 08/12/18 15:03 Last Admin: 06/13/18 15:44 Dose: 12.5 mg Ibuprofen (Motrin) 600 mg PO Q8H PRN PRN Reason: PAIN Stop: 08/12/18 14:50 Isosorbide Mononitrate (Imdur) 60 mg PO DAILY [facility] Stop: 08/12/18 15:03 Last Admin: 06/13/18 15:36 Dose: 60 mg Lorazepam (Ativan) 0.5 mg PO Q6HR PRN; Protocol PRN Reason: Agitation Stop: 08/09/18 21:11 Last Admin: 06/13/18 15:06 Dose: 0.5 mg Losartan Potassium (Cozaar) 50 mg PO DAILY [facility] Stop: 08/12/18 15:04 Last Admin: 06/13/18 15:35 Dose: 50 mg Magnesium Hydroxide (Milk Of Magnesia) 30 ml PO HS PRN PRN Reason: Constipation Multivitamins/Vitamin C (Theragran) 1 tab PO DAILY [facility] Stop: 08/10/18 08:59 Last Admin: 06/13/18 10:13 Dose: 1 tab Zolpidem Tartrate (Ambien) 5 mg PO HS PRN PRN Reason: Insomnia Stop: 08/09/18 18:37 General: demented HEENT: NC/AT Neck: Supple Lungs: CTAB Cardiovascular: Normal S1, Normal S2 Abdomen: soft Extremities: clear, edema Neurological: no change Internal Medicine Assmt/Plan - Assessment Assessment: psychosis h/o htn - Plan Plan: as per psych will monitor
--- NOTE | 2018-06-14 03:17 | Progress Notes ---
DATE: 06/13/2018 SUBJECTIVE: Staff was spoken to. The patient is interviewed. Mood is noted to be irritable. Affect is constricted. The patient's insight and judgment at this time are noted to be still impaired. Impulse control is noted to be poor. Coping skills are also noted to be very poor. The patient is paranoid. The patient has been isolative and withdrawn at this time. No side effects to the medications are noted. ASSESSMENT: The patient is still psychotic and impulsive. PLAN: To continue the patient with the current medications and followup. JOB# [id number]
[2018-06-14] MEDS: Escitalopram Oxalate 5 mg Tab PO SCH (09:30)
[2018-06-14] MEDS: Multivitamin Tab PO SCH (10:00)
--- NOTE | 2018-06-14 14:39 | Progress Notes ---
DATE: 06/14/2018 SUBJECTIVE: Staff was spoken to. The patient is interviewed. Mood is noted to be irritable. Affect is constricted. Insight and judgment at this that impaired. Impulse control is noted to be limited. Coping skills are noted to be limited. The patient has paranoid delusions. No side effects to the medications are noted. ASSESSMENT: The patient is still psychotic. PLAN: To continue the patient with the current medications and if the patient is going to be able to tolerate possibly the patient is going to be given the Haldol Decanoate prior to her being discharged. JOB# [id number]
--- NOTE | 2018-06-14 22:15 | Progress Notes ---
DATE: 06/14/2018 SUBJECTIVE: The patient was seen in the activity room. The patient appears to be guarded. He still gets frustrated and irritable, but currently the patient appears to be comfortable, in no acute distress. OBJECTIVE: VITAL SIGNS: Temperature 97.4, heart rate of 60, blood pressure 137/73, respirations of 18, 98% on room air. HEENT: Head is atraumatic and normocephalic. Eyes: Bilateral conjunctivae are clear. Bilateral pupils are equally round and reactive. NECK: Supple. No JVD. CARDIOVASCULAR: S1 and S2, without murmur. PULMONARY: Clear to auscultation. GASTROINTESTINAL: Soft and nontender without guarding. Positive bowel sounds. MUSCULOSKELETAL: No clubbing. No cyanosis noted. ASSESSMENT: 1. Schizophrenia. 2. Hypertension. 3. Osteoarthritis. PLAN: We will keep the patient inpatient. We will follow up with the psychiatrist to monitor the patient's condition and behavior. Treatment plans were discussed with the patient's nurse. Treatment plans were discussed with Dr. Jeff. JOB# [id number]
--- NOTE | 2018-06-15 08:07 | Internal Medicine Prog Note ---
Internal Medicine Subjective - Subjective Patient seen and examined:: chart reviewed Patient is:: awake (irritable ), confused Per staff patient has:: no adverse event Internal Medicine Objective - Physical Exam Vitals and I&O: Vital Signs Temp 97.5 F 06/15/18 06:47 Pulse 60 06/15/18 06:47 Resp 20 06/14/18 20:00 BP 171/74 06/15/18 06:47 Pulse Ox 95 06/15/18 06:47 Intake & Output 06/14/18 06/15/18 06/15/18 19:59 06:59 18:59 Intake Total Balance Intake: Oral Other: # Voids # Bowel Movements Active Medications: Current Medications Acetaminophen (Tylenol) 650 mg PO Q4HR PRN PRN Reason: Mild Pain / Temp above 100 Stop: 08/09/18 18:37 Al Hydrox/Mg Hydrox/Simethicone (Maalox) 30 ml PO Q4HR PRN PRN Reason: GI DISTRESS Stop: 08/09/18 18:37 Amlodipine Besylate (Norvasc) 10 mg PO DAILY [facility] Stop: 08/13/18 08:59 Last Admin: 06/14/18 09:30 Dose: 10 mg Calcium Carbonate (Os-Silvestre) 500 mg PO DAILY [facility] Stop: 08/13/18 08:59 Last Admin: 06/14/18 09:30 Dose: 500 mg Docusate Sodium (Colace) 250 mg PO DAILY [facility] Stop: 08/13/18 08:59 Last Admin: 06/14/18 09:30 Dose: 250 mg Escitalopram Oxalate (Lexapro) 5 mg PO DAILY [facility]; Protocol Stop: 08/10/18 08:59 Last Admin: 06/14/18 09:30 Dose: 5 mg Haloperidol (Haldol) 2 mg PO BID [facility]; Protocol Stop: 08/09/18 21:59 Last Admin: 06/14/18 16:19 Dose: 2 mg Hydralazine HCl (Apresoline) 25 mg PO QID [facility] Stop: 08/12/18 16:59 Last Admin: 06/14/18 21:38 Dose: Not Given Hydrochlorothiazide (Hctz) 12.5 mg PO DAILY [facility] Stop: 08/12/18 15:03 Last Admin: 06/14/18 10:00 Dose: 12.5 mg Ibuprofen (Motrin) 600 mg PO Q8H PRN PRN Reason: PAIN Stop: 08/12/18 14:50 Isosorbide Mononitrate (Imdur) 60 mg PO DAILY [facility] Stop: 08/12/18 15:03 Last Admin: 06/14/18 09:30 Dose: 60 mg Lorazepam (Ativan) 0.5 mg PO Q6HR PRN; Protocol PRN Reason: Agitation Stop: 08/09/18 21:11 Last Admin: 06/13/18 15:06 Dose: 0.5 mg Losartan Potassium (Cozaar) 50 mg PO DAILY [facility] Stop: 08/12/18 15:04 Last Admin: 06/14/18 10:00 Dose: 50 mg Magnesium Hydroxide (Milk Of Magnesia) 30 ml PO HS PRN PRN Reason: Constipation Multivitamins/Vitamin C (Theragran) 1 tab PO DAILY [facility] Stop: 08/10/18 08:59 Last Admin: 06/14/18 10:00 Dose: 1 tab Zolpidem Tartrate (Ambien) 5 mg PO HS PRN PRN Reason: Insomnia Stop: 08/09/18 18:37 General: demented HEENT: NC/AT Neck: Supple Lungs: CTAB Cardiovascular: Normal S1, Normal S2 Abdomen: soft Extremities: clear, edema Neurological: no change Internal Medicine Assmt/Plan - Assessment Assessment: psychosis h/o htn - Plan Plan: as per psych will monitor Nutritional Asmnt/Malnutr-PDOC - Dietary Evaluation Malnutrition Findings (Please click <Entered> for more info): Nutritional Asmnt/Malnutrition Start: 06/14/18 11: 02 Text: Status: Complete Freq: Protocol: Document 06/14/18 11:02 MERVAT (Rec: 06/14/18 11:06 MERVAT DUFFY- [id number]) Nutritional Asmnt/Malnutrition Patient General Information Diagnosis psychosis Pertinent Medical Hx/Surgical Hx psychosis, HTN, smoker Subjective Information Pt asleep at time of visit Current Diet Order/ Nutrition Support regular Pertinent Medications maalox, oscal, colace, MOM, theragran Pertinent Labs none noted as of 06/14 @1103 Nutritional Hx/Data Height 1.7 m Height (Calculated Centimeters) 170.2 Current Weight (lbs) 97.522 kg Weight (Calculated Kilograms) 97.5 Weight (Calculated Grams) 37589.4 Body Mass Index (BMI) 33.6 Weight Status Obese GI Symptoms GI Symptoms None Last BM 06/12 Cultural/Ethnic/Restoration Belief unknown Usual diet at home regular Skin Integrity/Comment: teri score 18 Estimated Nutritional Goals BEE in Kcals: Adj wt of IBW Calories/Kcals/Kg 25-30kcals/kg Kcals Calculated 1625-1950kcals/day Protein: Adj wt of IBW Protein g/kg: ~1g/kg Protein Calculated ~65g/day Fluid: ml 1625-1950ml/day (1ml/kcal) Nutritional Problem 1. Problem Problem No nutrition diagnosis at this time Intervention/Recommendation Comments Recommend continuing Regular diet Expected Outcomes/Goals Expected Outcomes/Goals PO intake >75% of meals
[2018-06-15] MEDS: Escitalopram Oxalate 5 mg Tab PO SCH (08:57)
[2018-06-15] MEDS: Multivitamin Tab PO SCH (08:59)
--- NOTE | 2018-06-16 02:42 | Progress Notes ---
DATE: 06/15/2018 PSYCHIATRIC PROGRESS NOTE SUBJECTIVE: Staff was spoken to. The patient is interviewed. Mood is noted to be irritable. Affect is constricted. Insight and judgment at this time are noted to be still impaired. Impulse control seems to be limited. Coping skill are also noted to be limited. The patient has been having difficult time to cope with the stress. The patient is still depressed. In view of that, it is decided to increase the dose on the Lexapro to 10 mg and the patient is encouraged to have fluids liberally and the patient is going to be closely monitored for any side effects. The patient is currently on 2 mg b.i.d. of the haloperidol and I am going to be changing it to 5 mg at bedtime and the patient is going to be followed up with supportive therapy. JOB# [id number]
[2018-06-16] MEDS: Multivitamin Tab PO SCH (09:27)
--- NOTE | 2018-06-16 15:20 | Internal Medicine Prog Note ---
Internal Medicine Subjective - Subjective Patient seen and examined:: chart reviewed Patient is:: awake (irritable ), confused (irritable and depressed ) Per staff patient has:: no adverse event Internal Medicine Objective - Physical Exam Vitals and I&O: Vital Signs Temp 98 F 06/16/18 06:39 Pulse 60 06/16/18 09:28 Resp 20 06/16/18 06:39 BP 165/64 06/16/18 09:28 Pulse Ox 95 06/16/18 06:39 Intake & Output 06/15/18 06/16/18 06/16/18 18:59 06:59 18:59 Intake Total 800 120 Balance 800 120 Intake: Oral 800 120 Other: # Voids 3 2 # Bowel Movements 1 Active Medications: Current Medications Acetaminophen (Tylenol) 650 mg PO Q4HR PRN PRN Reason: Mild Pain / Temp above 100 Stop: 08/09/18 18:37 Al Hydrox/Mg Hydrox/Simethicone (Maalox) 30 ml PO Q4HR PRN PRN Reason: GI DISTRESS Stop: 08/09/18 18:37 Amlodipine Besylate (Norvasc) 10 mg PO DAILY [facility] Stop: 08/13/18 08:59 Last Admin: 06/16/18 09:27 Dose: 10 mg Calcium Carbonate (Os-Silvestre) 500 mg PO DAILY [facility] Stop: 08/13/18 08:59 Last Admin: 06/16/18 09:27 Dose: 500 mg Docusate Sodium (Colace) 250 mg PO DAILY [facility] Stop: 08/13/18 08:59 Last Admin: 06/16/18 09:27 Dose: 250 mg Escitalopram Oxalate (Lexapro) 10 mg PO DAILY [facility]; Protocol Stop: 08/15/18 08:59 Last Admin: 06/16/18 09:28 Dose: 10 mg Haloperidol (Haldol) 5 mg PO HS [facility]; Protocol Stop: 08/14/18 20:59 Last Admin: 06/15/18 20:45 Dose: 5 mg Hydralazine HCl (Apresoline) 25 mg PO QID [facility] Stop: 08/12/18 16:59 Last Admin: 06/16/18 09:28 Dose: 25 mg Hydrochlorothiazide (Hctz) 12.5 mg PO DAILY [facility] Stop: 08/12/18 15:03 Last Admin: 06/16/18 09:28 Dose: 12.5 mg Ibuprofen (Motrin) 600 mg PO Q8H PRN PRN Reason: PAIN Stop: 08/12/18 14:50 Isosorbide Mononitrate (Imdur) 60 mg PO DAILY [facility] Stop: 08/12/18 15:03 Last Admin: 06/16/18 09:28 Dose: 60 mg Lorazepam (Ativan) 0.5 mg PO Q6HR PRN; Protocol PRN Reason: Agitation Stop: 08/09/18 21:11 Last Admin: 06/13/18 15:06 Dose: 0.5 mg Losartan Potassium (Cozaar) 50 mg PO DAILY [facility] Stop: 08/12/18 15:04 Last Admin: 06/16/18 09:27 Dose: 50 mg Magnesium Hydroxide (Milk Of Magnesia) 30 ml PO HS PRN PRN Reason: Constipation Multivitamins/Vitamin C (Theragran) 1 tab PO DAILY [facility] Stop: 08/10/18 08:59 Last Admin: 06/16/18 09:27 Dose: 1 tab Zolpidem Tartrate (Ambien) 5 mg PO HS PRN PRN Reason: Insomnia Stop: 08/09/18 18:37 General: demented HEENT: NC/AT Neck: Supple Lungs: CTAB Cardiovascular: Normal S1, Normal S2 Abdomen: soft Extremities: clear, edema Neurological: no change Internal Medicine Assmt/Plan - Assessment Assessment: psychosis h/o htn - Plan Plan: as per psych will monitor as problems arise Nutritional Asmnt/Malnutr-PDOC - Dietary Evaluation Malnutrition Findings (Please click <Entered> for more info): Nutritional Asmnt/Malnutrition Start: 06/14/18 11: 02 Text: Status: Complete Freq: Protocol: Document 06/14/18 11:02 MERVAT (Rec: 06/14/18 11:06 MREVAT DUFFY- [id number]) Nutritional Asmnt/Malnutrition Patient General Information Diagnosis psychosis Pertinent Medical Hx/Surgical Hx psychosis, HTN, smoker Subjective Information Pt asleep at time of visit Current Diet Order/ Nutrition Support regular Pertinent Medications maalox, oscal, colace, MOM, theragran Pertinent Labs none noted as of 06/14 @1103 Nutritional Hx/Data Height 1.7 m Height (Calculated Centimeters) 170.2 Current Weight (lbs) 97.522 kg Weight (Calculated Kilograms) 97.5 Weight (Calculated Grams) 33556.4 Body Mass Index (BMI) 33.6 Weight Status Obese GI Symptoms GI Symptoms None Last BM 06/12 Cultural/Ethnic/Yazidi Belief unknown Usual diet at home regular Skin Integrity/Comment: teri score 18 Estimated Nutritional Goals BEE in Kcals: Adj wt of IBW Calories/Kcals/Kg 25-30kcals/kg Kcals Calculated 1625-1950kcals/day Protein: Adj wt of IBW Protein g/kg: ~1g/kg Protein Calculated ~65g/day Fluid: ml 1625-1950ml/day (1ml/kcal) Nutritional Problem 1. Problem Problem No nutrition diagnosis at this time Intervention/Recommendation Comments Recommend continuing Regular diet Expected Outcomes/Goals Expected Outcomes/Goals PO intake >75% of meals
--- NOTE | 2018-06-16 21:23 | Progress Notes ---
DATE: 06/16/2018 SUBJECTIVE: Staff was spoken to. The patient is interviewed. Mood is noted to be irritable. Affect is constricted. Continues to be very paranoid. Insight and judgment at this time are noted to be still impaired. Impulse control is noted to be limited. ASSESSMENT: The patient is still paranoid. PLAN: To continue the patient with the supportive therapy and followup. JOB# [id number]
[2018-06-17] MEDS: Multivitamin Tab PO SCH (09:38)
--- NOTE | 2018-06-17 12:23 | Internal Medicine Prog Note ---
Internal Medicine Subjective - Subjective Service Date: 06/17/18 Patient is:: awake (irritable ), confused (irritable and depressed ) Per staff patient has:: no adverse event Internal Medicine Objective - Physical Exam Vitals and I&O: Vital Signs Temp 98.5 F 06/17/18 05:59 Pulse 51 06/17/18 09:40 Resp 20 06/17/18 05:59 BP 185/74 06/17/18 09:41 Pulse Ox 93 06/17/18 05:59 Intake & Output 06/16/18 06/17/18 06/17/18 18:59 06:59 18:59 Intake Total 900 120 Balance 900 120 Intake: Oral 900 120 Other: # Voids 4 1 # Bowel Movements 1 0 Active Medications: Current Medications Acetaminophen (Tylenol) 650 mg PO Q4HR PRN PRN Reason: Mild Pain / Temp above 100 Stop: 08/09/18 18:37 Al Hydrox/Mg Hydrox/Simethicone (Maalox) 30 ml PO Q4HR PRN PRN Reason: GI DISTRESS Stop: 08/09/18 18:37 Amlodipine Besylate (Norvasc) 10 mg PO DAILY [facility] Stop: 08/13/18 08:59 Last Admin: 06/17/18 09:39 Dose: 10 mg Calcium Carbonate (Os-Silvestre) 500 mg PO DAILY [facility] Stop: 08/13/18 08:59 Last Admin: 06/17/18 09:41 Dose: 500 mg Docusate Sodium (Colace) 250 mg PO DAILY [facility] Stop: 08/13/18 08:59 Last Admin: 06/17/18 09:41 Dose: 250 mg Escitalopram Oxalate (Lexapro) 10 mg PO DAILY [facility]; Protocol Stop: 08/15/18 08:59 Last Admin: 06/17/18 09:41 Dose: 10 mg Haloperidol (Haldol) 5 mg PO HS [facility]; Protocol Stop: 08/14/18 20:59 Last Admin: 06/16/18 21:25 Dose: 5 mg Hydralazine HCl (Apresoline) 25 mg PO QID [facility] Stop: 08/12/18 16:59 Last Admin: 06/17/18 09:38 Dose: 25 mg Hydrochlorothiazide (Hctz) 12.5 mg PO DAILY [facility] Stop: 08/12/18 15:03 Last Admin: 06/17/18 09:41 Dose: 12.5 mg Ibuprofen (Motrin) 600 mg PO Q8H PRN PRN Reason: PAIN Stop: 08/12/18 14:50 Isosorbide Mononitrate (Imdur) 60 mg PO DAILY [facility] Stop: 08/12/18 15:03 Last Admin: 06/17/18 09:37 Dose: 60 mg Lorazepam (Ativan) 0.5 mg PO Q6HR PRN; Protocol PRN Reason: Agitation Stop: 08/09/18 21:11 Last Admin: 06/13/18 15:06 Dose: 0.5 mg Losartan Potassium (Cozaar) 50 mg PO DAILY [facility] Stop: 08/12/18 15:04 Last Admin: 06/17/18 09:40 Dose: 50 mg Magnesium Hydroxide (Milk Of Magnesia) 30 ml PO HS PRN PRN Reason: Constipation Multivitamins/Vitamin C (Theragran) 1 tab PO DAILY [facility] Stop: 08/10/18 08:59 Last Admin: 06/17/18 09:38 Dose: 1 tab Zolpidem Tartrate (Ambien) 5 mg PO HS PRN PRN Reason: Insomnia Stop: 08/09/18 18:37 General: demented HEENT: NC/AT Neck: Supple Lungs: CTAB Cardiovascular: Normal S1, Normal S2 Abdomen: soft Extremities: clear, edema Neurological: no change Internal Medicine Assmt/Plan - Assessment Assessment: htn psychosis - Plan Plan: fall precautions monitor bp continue current plan of care Nutritional Asmnt/Malnutr-PDOC - Dietary Evaluation Malnutrition Findings (Please click <Entered> for more info): Nutritional Asmnt/Malnutrition Start: 06/14/18 11: 02 Text: Status: Complete Freq: Protocol: Document 06/14/18 11:02 MERVAT (Rec: 06/14/18 11:06 MERVAT DUFFY- FNS1) Nutritional Asmnt/Malnutrition Patient General Information Diagnosis psychosis Pertinent Medical Hx/Surgical Hx psychosis, HTN, smoker Subjective Information Pt asleep at time of visit Current Diet Order/ Nutrition Support regular Pertinent Medications maalox, oscal, colace, MOM, theragran Pertinent Labs none noted as of 06/14 @1103 Nutritional Hx/Data Height 5 ft 7 in Height (Calculated Centimeters) 170.2 Current Weight (lbs) 215 lb Weight (Calculated Kilograms) 97.5 Weight (Calculated Grams) 08578.4 Body Mass Index (BMI) 33.6 Weight Status Obese GI Symptoms GI Symptoms None Last BM 06/12 Cultural/Ethnic/Scientology Belief unknown Usual diet at home regular Skin Integrity/Comment: teri score 18 Estimated Nutritional Goals BEE in Kcals: Adj wt of IBW Calories/Kcals/Kg 25-30kcals/kg Kcals Calculated 1625-1950kcals/day Protein: Adj wt of IBW Protein g/kg: ~1g/kg Protein Calculated ~65g/day Fluid: ml 1625-1950ml/day (1ml/kcal) Nutritional Problem 1. Problem Problem No nutrition diagnosis at this time Intervention/Recommendation Comments Recommend continuing Regular diet Expected Outcomes/Goals Expected Outcomes/Goals PO intake >75% of meals
--- NOTE | 2018-06-18 00:13 | Progress Notes ---
DATE: 06/17/2018 SUBJECTIVE: Staff was spoken to. The patient is interviewed. Mood is noted to be irritable. Affect is constricted. Insight and judgment are noted to be improving. Impulse control seems to be fair. No side effects to the medications are noted. The patient has paranoia, but denies any command hallucinations. No side effects to the medications are noted. In view of the patient's noncompliance to medications and the patient's responds to the Haldol, it is decided to place the patient on Haldol Decanoate and the patient has been hesitant. Once the patient gives the consent, the patient is going to be placed on Haldol Decanoate and the patient is going to be given medication and closely monitored. JOB# [id number]
[2018-06-18] MEDS: Multivitamin Tab PO SCH (08:33)
--- NOTE | 2018-06-18 11:34 | Internal Medicine Prog Note ---
Internal Medicine Subjective - Subjective Patient is:: awake (irritable ), confused (irritable ) Per staff patient has:: no adverse event Internal Medicine Objective - Physical Exam Vitals and I&O: Vital Signs Temp 98.1 F 06/18/18 06:15 Pulse 50 06/18/18 06:15 Resp 20 06/18/18 06:15 BP 152/51 06/18/18 06:15 Pulse Ox 98 06/18/18 06:15 Intake & Output 06/17/18 06/18/18 06/18/18 18:59 06:59 18:59 Intake Total 360 Balance 360 Intake: Oral 360 Other: # Voids 1 # Bowel Movements 0 Active Medications: Current Medications Acetaminophen (Tylenol) 650 mg PO Q4HR PRN PRN Reason: Mild Pain / Temp above 100 Stop: 08/09/18 18:37 Al Hydrox/Mg Hydrox/Simethicone (Maalox) 30 ml PO Q4HR PRN PRN Reason: GI DISTRESS Stop: 08/09/18 18:37 Amlodipine Besylate (Norvasc) 10 mg PO DAILY [facility] Stop: 08/13/18 08:59 Last Admin: 06/18/18 08:33 Dose: Not Given Calcium Carbonate (Os-Silvestre) 500 mg PO DAILY [facility] Stop: 08/13/18 08:59 Last Admin: 06/18/18 08:33 Dose: 500 mg Docusate Sodium (Colace) 250 mg PO DAILY [facility] Stop: 08/13/18 08:59 Last Admin: 06/18/18 08:33 Dose: 250 mg Escitalopram Oxalate (Lexapro) 10 mg PO DAILY [facility]; Protocol Stop: 08/15/18 08:59 Last Admin: 06/18/18 08:33 Dose: 10 mg Haloperidol (Haldol) 5 mg PO HS [facility]; Protocol Stop: 08/14/18 20:59 Last Admin: 06/17/18 20:55 Dose: 5 mg Hydralazine HCl (Apresoline) 25 mg PO QID [facility] Stop: 08/12/18 16:59 Last Admin: 06/18/18 08:34 Dose: Not Given Hydrochlorothiazide (Hctz) 12.5 mg PO DAILY [facility] Stop: 08/12/18 15:03 Last Admin: 06/18/18 08:34 Dose: Not Given Ibuprofen (Motrin) 600 mg PO Q8H PRN PRN Reason: PAIN Stop: 08/12/18 14:50 Isosorbide Mononitrate (Imdur) 60 mg PO DAILY [facility] Stop: 08/12/18 15:03 Last Admin: 06/18/18 08:34 Dose: Not Given Lorazepam (Ativan) 0.5 mg PO Q6HR PRN; Protocol PRN Reason: Agitation Stop: 08/09/18 21:11 Last Admin: 06/13/18 15:06 Dose: 0.5 mg Losartan Potassium (Cozaar) 50 mg PO DAILY [facility] Stop: 08/12/18 15:04 Last Admin: 06/18/18 08:34 Dose: Not Given Magnesium Hydroxide (Milk Of Magnesia) 30 ml PO HS PRN PRN Reason: Constipation Multivitamins/Vitamin C (Theragran) 1 tab PO DAILY [facility] Stop: 08/10/18 08:59 Last Admin: 06/18/18 08:33 Dose: 1 tab Zolpidem Tartrate (Ambien) 5 mg PO HS PRN PRN Reason: Insomnia Stop: 08/09/18 18:37 General: NAD HEENT: NC/AT Neck: Supple Lungs: CTAB Cardiovascular: Normal S1, Normal S2 Abdomen: soft Extremities: clear, edema Neurological: no change Internal Medicine Assmt/Plan - Assessment Assessment: psychosis h/o htn - Plan Plan: as per psych will monitor as problems arise Nutritional Asmnt/Malnutr-PDOC - Dietary Evaluation Malnutrition Findings (Please click <Entered> for more info): Nutritional Asmnt/Malnutrition Start: 06/14/18 11: 02 Text: Status: Complete Freq: Protocol: Document 06/14/18 11:02 MERVAT (Rec: 06/14/18 11:06 MERVAT DUFFY- FNS1) Nutritional Asmnt/Malnutrition Patient General Information Diagnosis psychosis Pertinent Medical Hx/Surgical Hx psychosis, HTN, smoker Subjective Information Pt asleep at time of visit Current Diet Order/ Nutrition Support regular Pertinent Medications maalox, oscal, colace, MOM, theragran Pertinent Labs none noted as of 06/14 @1103 Nutritional Hx/Data Height 1.7 m Height (Calculated Centimeters) 170.2 Current Weight (lbs) 97.522 kg Weight (Calculated Kilograms) 97.5 Weight (Calculated Grams) 92427.4 Body Mass Index (BMI) 33.6 Weight Status Obese GI Symptoms GI Symptoms None Last BM 06/12 Cultural/Ethnic/[employer]din Belief unknown Usual diet at home regular Skin Integrity/Comment: teir score 18 Estimated Nutritional Goals BEE in Kcals: Adj wt of IBW Calories/Kcals/Kg 25-30kcals/kg Kcals Calculated 1625-1950kcals/day Protein: Adj wt of IBW Protein g/kg: ~1g/kg Protein Calculated ~65g/day Fluid: ml 1625-1950ml/day (1ml/kcal) Nutritional Problem 1. Problem Problem No nutrition diagnosis at this time Intervention/Recommendation Comments Recommend continuing Regular diet Expected Outcomes/Goals Expected Outcomes/Goals PO intake >75% of meals
--- NOTE | 2018-06-19 03:41 | Progress Notes ---
DATE: 06/18/2018 SUBJECTIVE: Staff was spoken to. The patient is interviewed. Mood is noted to be irritable. Affect is constricted. Insight and judgment noted to be improving. Impulse control seems to be fair. The patient has paranoid delusions, but denies any command hallucinations. No side effects to the medications are noted. ASSESSMENT: The patient's psychosis is resolving. PLAN: To continue the patient with the supportive therapy and followup. JOB# [id number]
[2018-06-19] MEDS ORDERED: Aspirin 81mg Chewable Tab PO SCH (09:00)
[2018-06-19] MEDS ORDERED: RISPERIDONE 2 MG PO SCH (09:00)
[2018-06-19] MEDS ORDERED: Multivitamin Tab PO SCH ×2 (09:00)
[2018-06-19] MEDS: Multivitamin Tab PO SCH (09:45)
--- NOTE | 2018-06-19 13:39 | Internal Medicine Prog Note ---
Internal Medicine Subjective - Subjective Service Date: 06/19/18 Patient is:: awake (irritable ), confused (irritable ) Per staff patient has:: no adverse event Internal Medicine Objective - Physical Exam Vitals and I&O: Vital Signs Temp 98.1 F 06/19/18 06:15 Pulse 60 06/19/18 13:21 Resp 18 06/19/18 06:15 BP 164/65 06/19/18 13:21 Pulse Ox 100 06/19/18 06:15 Intake & Output 06/18/18 06/19/18 06/19/18 18:59 06:59 18:59 Intake Total 120 Balance 120 Intake: Oral 120 Other: # Voids 2 Active Medications: Current Medications Acetaminophen (Tylenol) 650 mg PO Q4HR PRN PRN Reason: Mild Pain / Temp above 100 Stop: 08/09/18 18:37 Al Hydrox/Mg Hydrox/Simethicone (Maalox) 30 ml PO Q4HR PRN PRN Reason: GI DISTRESS Stop: 08/09/18 18:37 Amlodipine Besylate (Norvasc) 10 mg PO DAILY [facility] Stop: 08/13/18 08:59 Last Admin: 06/19/18 09:45 Dose: 10 mg Calcium Carbonate (Os-Silvestre) 500 mg PO DAILY [facility] Stop: 08/13/18 08:59 Last Admin: 06/19/18 09:45 Dose: 500 mg Docusate Sodium (Colace) 250 mg PO DAILY [facility] Stop: 08/13/18 08:59 Last Admin: 06/19/18 09:45 Dose: 250 mg Escitalopram Oxalate (Lexapro) 10 mg PO DAILY [facility]; Protocol Stop: 08/15/18 08:59 Last Admin: 06/19/18 09:44 Dose: 10 mg Haloperidol (Haldol) 5 mg PO HS [facility]; Protocol Stop: 08/14/18 20:59 Last Admin: 06/18/18 20:13 Dose: 5 mg Hydralazine HCl (Apresoline) 25 mg PO QID [facility] Stop: 08/12/18 16:59 Last Admin: 06/19/18 13:21 Dose: 25 mg Hydrochlorothiazide (Hctz) 12.5 mg PO DAILY [facility] Stop: 08/12/18 15:03 Last Admin: 06/19/18 09:42 Dose: 12.5 mg Ibuprofen (Motrin) 600 mg PO Q8H PRN PRN Reason: PAIN Stop: 08/12/18 14:50 Isosorbide Mononitrate (Imdur) 60 mg PO DAILY [facility] Stop: 08/12/18 15:03 Last Admin: 06/19/18 09:43 Dose: 60 mg Lorazepam (Ativan) 0.5 mg PO Q6HR PRN; Protocol PRN Reason: Agitation Stop: 08/09/18 21:11 Last Admin: 06/13/18 15:06 Dose: 0.5 mg Losartan Potassium (Cozaar) 50 mg PO DAILY [facility] Stop: 08/12/18 15:04 Last Admin: 06/19/18 09:44 Dose: 50 mg Magnesium Hydroxide (Milk Of Magnesia) 30 ml PO HS PRN PRN Reason: Constipation Multivitamins/Vitamin C (Theragran) 1 tab PO DAILY [facility] Stop: 08/10/18 08:59 Last Admin: 06/19/18 09:45 Dose: 1 tab Zolpidem Tartrate (Ambien) 5 mg PO HS PRN PRN Reason: Insomnia Stop: 08/09/18 18:37 General: NAD HEENT: NC/AT Neck: Supple Lungs: CTAB Cardiovascular: Normal S1, Normal S2 Abdomen: soft Extremities: clear, edema Neurological: no change Internal Medicine Assmt/Plan - Assessment Assessment: htn psychosis - Plan Plan: fall precautions monitor bp continue current plan of care Nutritional Asmnt/Malnutr-PDOC - Dietary Evaluation Malnutrition Findings (Please click <Entered> for more info): Nutritional Asmnt/Malnutrition Start: 06/14/18 11: 02 Text: Status: Complete Freq: Protocol: Document 06/14/18 11:02 MERVAT (Rec: 06/14/18 11:06 MERVAT DUFFY- FNS1) Nutritional Asmnt/Malnutrition Patient General Information Diagnosis psychosis Pertinent Medical Hx/Surgical Hx psychosis, HTN, smoker Subjective Information Pt asleep at time of visit Current Diet Order/ Nutrition Support regular Pertinent Medications maalox, oscal, colace, MOM, theragran Pertinent Labs none noted as of 06/14 @1103 Nutritional Hx/Data Height 5 ft 7 in Height (Calculated Centimeters) 170.2 Current Weight (lbs) 215 lb Weight (Calculated Kilograms) 97.5 Weight (Calculated Grams) 14503.4 Body Mass Index (BMI) 33.6 Weight Status Obese GI Symptoms GI Symptoms None Last BM 06/12 Cultural/Ethnic/Mu-Ism Belief unknown Usual diet at home regular Skin Integrity/Comment: teri score 18 Estimated Nutritional Goals BEE in Kcals: Adj wt of IBW Calories/Kcals/Kg 25-30kcals/kg Kcals Calculated 1625-1950kcals/day Protein: Adj wt of IBW Protein g/kg: ~1g/kg Protein Calculated ~65g/day Fluid: ml 1625-1950ml/day (1ml/kcal) Nutritional Problem 1. Problem Problem No nutrition diagnosis at this time Intervention/Recommendation Comments Recommend continuing Regular diet Expected Outcomes/Goals Expected Outcomes/Goals PO intake >75% of meals
--- NOTE | 2018-06-19 16:57 | Progress Notes ---
DATE: 06/19/2018 SUBJECTIVE: Staff was spoken to. The patient is interviewed. Mood is noted to be anxious. The patient's insight and is noted to be improving. Impulse control seems to be fair. No major side effects are noted. The patient has been able to tolerate the haloperidol and patient is on 5 mg of the Haldol at bedtime. The patient is also on Lexapro 10 mg in the morning. No side effects to the medications are noted. ASSESSMENT: The patient's psychosis is resolving. PLAN: To continue the patient with the supportive therapy and followup. JOB# [id number]
[2018-06-20] MEDS: Multivitamin Tab PO SCH (08:38)
--- NOTE | 2018-06-20 13:54 | Internal Medicine Prog Note ---
Internal Medicine Subjective - Subjective Patient seen and examined:: chart reviewed Patient is:: awake (irritable ), confused (irritable ) Per staff patient has:: no adverse event, tolerating meds Internal Medicine Objective - Physical Exam Vitals and I&O: Vital Signs Temp 98.2 F 06/20/18 10:53 Pulse 56 06/20/18 10:53 Resp 19 06/20/18 10:53 BP 144/69 06/20/18 10:53 Pulse Ox 98 06/20/18 10:53 Intake & Output 06/19/18 06/20/18 06/20/18 18:59 06:59 18:59 Intake Total 920 120 Balance 920 120 Intake: Oral 920 120 Other: # Voids 3 3 # Bowel Movements 1 Active Medications: Current Medications Acetaminophen (Tylenol) 650 mg PO Q4HR PRN PRN Reason: Mild Pain / Temp above 100 Stop: 08/09/18 18:37 Al Hydrox/Mg Hydrox/Simethicone (Maalox) 30 ml PO Q4HR PRN PRN Reason: GI DISTRESS Stop: 08/09/18 18:37 Amlodipine Besylate (Norvasc) 10 mg PO DAILY [facility] Stop: 08/13/18 08:59 Last Admin: 06/20/18 08:41 Dose: 10 mg Calcium Carbonate (Os-Silvestre) 500 mg PO DAILY [facility] Stop: 08/13/18 08:59 Last Admin: 06/20/18 08:39 Dose: 500 mg Docusate Sodium (Colace) 250 mg PO DAILY [facility] Stop: 08/13/18 08:59 Last Admin: 06/20/18 08:37 Dose: 250 mg Escitalopram Oxalate (Lexapro) 10 mg PO DAILY [facility]; Protocol Stop: 08/15/18 08:59 Last Admin: 06/20/18 08:38 Dose: 10 mg Haloperidol (Haldol) 5 mg PO HS [facility]; Protocol Stop: 08/14/18 20:59 Last Admin: 06/19/18 20:58 Dose: 5 mg Hydralazine HCl (Apresoline) 25 mg PO QID [facility] Stop: 08/12/18 16:59 Last Admin: 06/20/18 08:48 Dose: 25 mg Hydrochlorothiazide (Hctz) 12.5 mg PO DAILY [facility] Stop: 08/12/18 15:03 Last Admin: 06/20/18 08:40 Dose: 12.5 mg Ibuprofen (Motrin) 600 mg PO Q8H PRN PRN Reason: PAIN Stop: 08/12/18 14:50 Isosorbide Mononitrate (Imdur) 60 mg PO DAILY [facility] Stop: 08/12/18 15:03 Last Admin: 06/20/18 08:40 Dose: 60 mg Lorazepam (Ativan) 0.5 mg PO Q6HR PRN; Protocol PRN Reason: Agitation Stop: 08/09/18 21:11 Last Admin: 06/13/18 15:06 Dose: 0.5 mg Losartan Potassium (Cozaar) 50 mg PO DAILY [facility] Stop: 08/12/18 15:04 Last Admin: 06/20/18 08:42 Dose: 50 mg Magnesium Hydroxide (Milk Of Magnesia) 30 ml PO HS PRN PRN Reason: Constipation Multivitamins/Vitamin C (Theragran) 1 tab PO DAILY [facility] Stop: 08/10/18 08:59 Last Admin: 06/20/18 08:38 Dose: 1 tab Zolpidem Tartrate (Ambien) 5 mg PO HS PRN PRN Reason: Insomnia Stop: 08/09/18 18:37 General: demented HEENT: NC/AT Neck: Supple Lungs: CTAB Cardiovascular: Normal S1, Normal S2 Abdomen: soft Extremities: clear, edema Neurological: no change Internal Medicine Assmt/Plan - Assessment Assessment: psychosis h/o htn - Plan Plan: as per psych will monitor as problems arise Nutritional Asmnt/Malnutr-PDOC - Dietary Evaluation Malnutrition Findings (Please click <Entered> for more info): Nutritional Asmnt/Malnutrition Start: 06/14/18 11: 02 Text: Status: Complete Freq: Protocol: Document 06/14/18 11:02 MERVAT (Rec: 06/14/18 11:06 MERVAT CLIVE- FNS1) Nutritional Asmnt/Malnutrition Patient General Information Diagnosis psychosis Pertinent Medical Hx/Surgical Hx psychosis, HTN, smoker Subjective Information Pt asleep at time of visit Current Diet Order/ Nutrition Support regular Pertinent Medications maalox, oscal, colace, MOM, theragran Pertinent Labs none noted as of 06/14 @1103 Nutritional Hx/Data Height 1.7 m Height (Calculated Centimeters) 170.2 Current Weight (lbs) 97.522 kg Weight (Calculated Kilograms) 97.5 Weight (Calculated Grams) 25147.4 Body Mass Index (BMI) 33.6 Weight Status Obese GI Symptoms GI Symptoms None Last BM 06/12 Cultural/Ethnic/[employer]ist Belief unknown Usual diet at home regular Skin Integrity/Comment: teri score 18 Estimated Nutritional Goals BEE in Kcals: Adj wt of IBW Calories/Kcals/Kg 25-30kcals/kg Kcals Calculated 1625-1950kcals/day Protein: Adj wt of IBW Protein g/kg: ~1g/kg Protein Calculated ~65g/day Fluid: ml 1625-1950ml/day (1ml/kcal) Nutritional Problem 1. Problem Problem No nutrition diagnosis at this time Intervention/Recommendation Comments Recommend continuing Regular diet Expected Outcomes/Goals Expected Outcomes/Goals PO intake >75% of meals
--- NOTE | 2018-06-21 02:55 | Progress Notes ---
DATE: 06/20/2018 SUBJECTIVE: Staff was spoken to. The patient is interviewed. Mood is noted to be anxious. Affect is appropriate. Not suicidal or homicidal. Insight and judgment are noted to be improving. His control seems to be fair. Coping skills are noted to be fair. ASSESSMENT: The patient is stabilizing. PLAN: To discharge the patient today for followup on outpatient basis. JOB# [id number]
== END 2018-06-20 15:45 | DRG 885 ==
LOC: GERO 15:40
PROVIDERS: ADMIT Psychiatry & Neurology Psychiatry; ATTEND Psychiatry & Neurology Psychiatry
DX: F20.0 Paranoid schizophrenia (principal); I10 Essential (primary) hypertension; F29 Unspecified psychosis not due to a substance or known physiological condition; M19.90 Unspecified osteoarthritis, unspecified site; Z59.0 Homelessness; Z91.14 Patient's other noncompliance with medication regimen
CPT/HCPCS: 83036-90; G0410; Z7610

== ENCOUNTER 2019-03-24 18:40 | Inpatient (IN) | payer MEDICARE, OTHER ==
--- NOTE | 2019-03-24 18:55 | ED Physician Chart ---
ED Chief Complaint/HPI - Patient Information Date Seen:: 03/24/19 Time Seen:: 18:50 Chief Complaint:: Agitation History of Present Illness:: onset x 3 days of agitation and aggressive behavior; no report of trauma, SIs, H /As, neck pain, C/P, SOB, Abd. Pain, or urinary s/s Allergies:: Allergies Allergy/AdvReac Type Severity Reaction Status Date / Time No Known Allergies Allergy Verified 10/10/17 16:39 Historian:: Patient, Family Member Review:: Nurse's Note Reviewed, Old Chart Reviewed ED Review of Systems - Review of Systems General/Constitutional: No fever, No chills, No weight loss, No weakness, No diaphoresis, No edema, No loss of appetite Skin: No skin lesions, No rash, No bruising Head: No headache, No light-headedness Eyes: No loss of vision, No pain, No diplopia ENT: No earache, No nasal drainage, No sore throat, No tinnitus Neck: No neck pain, No swelling, No thyromegaly, No stiffness, No mass noted Cardio Vascular: No chest pain, No palpitations, No PND, No orthopnea, No edema Pulmonary: No SOB, No cough, No sputum, No wheezing GI: No nausea, No vomiting, No diarrhea, No pain, No melena, No hematochezia, No constipation, No hematemesis G/U: No dysuria, No frequency, No hematuria, No nacturia Musculoskeletal: No bone or joint pain, No back pain, No muscle pain Endocrine: No polyuria, No polydipsia Psychiatric: Prior psych history, Depression, Anxiety, No suicidal ideation, No homicidal ideation, No auditory hallucination, No visual hallucination Hematopoietic: No bruising, No lymphadenopathy Allergic/Immuno: No urticaria, No angioedema Neurological: No syncope, No focal symptoms, No weakness, No paresthesia, No headache, No seizure, No dizziness, No confusion, No vertigo ED Past Medical History - Past Medical History Obtainable: Yes Past Medical History: HTN, Dyslipidemia Family History: HTN Social History: Non Smoker, No Alcohol, No Drug Use, Single, Care Facility Surgical History: None Psychiatricy History: Depression, Bipolar Medication: Reviewed Family Medical History - Family Member Mother History Unknown: Yes Ethnicity: Unknown Living Status: Unknown Hx Family Cancer: (unknown) Hx Family Coronary Artery Disease: (unknown) Hx Family Congestive Heart Failure: (unknown) Hx Family Hypertension: (unknown) Hx Family Stroke: (unknown) Hx Family Diabetes: (unknown) Hx Family Seizures: (unknown) Hx Family Dementia: (unknown) Hx Family AIDS: (unknown) Hx Family HIV: No Hx Family COPD: (unknown) Hx Family Hepatitis: (unknown) Hx Family Psychiatric Problems: (unknown) Hx Family Tuberculosis: (unknown) ED Physical Exam - Physical Examination General/Constitutional: Awake, Well-developed, well-nourished, Alert, No distress, GCS 15, Non-toxic appearing, Ambulatory Head: Atraumatic Eyes: Lids, conjuctiva normal, PERRL, EOMI Skin: Nl inspection, No rash, No skin lesions, No ecchymosis, Well hydrated, No lymphadenopathy ENMT: External ears, nose nl, TM canals nl, Nasal exam nl, Lips, teeth, gums nl , Oropharynx nl, Tonsils nl Neck: Nontender, Full ROM w/o pain, No JVD, No nuchal rigidity, No bruit, No mass, No stridor Respiratory: Nl effort/Exclusion, Clear to Auscultation, No Wheeze/Rhonchi/Rales Cardio Vascular: RRR, No murmur, gallop, rubs, NL S1 S2, Carotid/Femoral/Distal pulses equal bilaterally GI: No tenderness/rebounding/guarding, No organomegaly, No hernia, Normal BS's, Nondistended, No mass/bruits, No McBurney tenderness : No CVA tenderness Extremities: No tenderness or effusion, Full ROM, normal strength in all extremities, No edema, Normal digits & nails Neuro/Psych: Alert/oriented, DTR's symmetric, Normal sensory exam, Normal motor strength, Judgement/insight normal, Mood normal, Normal gait, No focal deficits Other Neuro/Psych comments:: + Psychomotor Agitation; no SIs; Mood/Affect: Labile Misc: Normal back, No paraspinal tenderness ED Septic Shock - . Is Septic Shock (SBP<90, OR Lactate>4 mmol\L) present?: No ED Reassessment (Disposition) - Reassessment Reassessment Condition:: Improved - Diagnosis Diagnosis:: Agitation; Medical Clearance; Psychosis
[2019-03-24 20:56] VITALS: BP 000/0
--- NOTE | 2019-03-25 15:25 | History and Physical ---
History of Present Illness - HPI Chief Complaint: agitation HPI: This is a 74-year old female who [facility] a [facility] with a 1 day history of agitation. Vital Signs: Last Vital Signs Temp 0 F 03/25/19 06:28 Pulse 87 03/24/19 18:54 Resp 16 03/24/19 18:54 BP 000/0 03/24/19 20:56 Pulse Ox 98 03/24/19 18:54 Past Medical History Other History: HTN, Dyslipidemia Family Medical History - Family Member Mother History Unknown: Yes Ethnicity: Unknown Living Status: Unknown Hx Family Cancer: (unknown) Hx Family Coronary Artery Disease: (unknown) Hx Family Congestive Heart Failure: (unknown) Hx Family Hypertension: (unknown) Hx Family Stroke: (unknown) Hx Family Diabetes: (unknown) Hx Family Seizures: (unknown) Hx Family Dementia: (unknown) Hx Family AIDS: (unknown) Hx Family HIV: No Hx Family COPD: (unknown) Hx Family Hepatitis: (unknown) Hx Family Psychiatric Problems: (unknown) Hx Family Tuberculosis: (unknown) Social History Smoke: No Alcohol: None Drugs: None Lives: Longterm - Medications Home Medications: Home Medication Medication Instructions Recorded Type Acetaminophen [Pain Reliever] 650 mg PO Q4H PRN 03/24/19 History Bisacodyl [Dulcolax 10 Mg Supp] 10 mg RC DAILY PRN 03/24/19 History Carvedilol [Coreg] 12.5 mg PO BID 03/24/19 History Docusate Sodium [Colace] 100 mg PO DAILY 03/24/19 History Fleet Enema 1 supp RC DAILY PRN 03/24/19 History Hydralazine HCl 50 mg PO Q6H PRN 03/24/19 History Hydrochlorothiazide [Hctz*] 25 mg PO DAILY 03/24/19 History Hydrocodone/Acetaminophen [Emmons 1 each PO Q4H PRN 03/24/19 History 10-325 Tablet] Losartan Potassium [Cozaar] 100 mg PO DAILY 03/24/19 History Magnesium Hydroxide [Milk of 30 ml PO DAILY PRN 03/24/19 History Magnesia] Nitroglycerin [Nitroglycerin*] 0.4 mg SL Q5MIN PRN 03/24/19 History Omeprazole 1 tab PO DAILY 03/24/19 History - Allergies Allergies/Adverse Reactions: Allergies Allergy/AdvReac Type Severity Reaction Status Date / Time Penicillins [PCN] Allergy Verified 03/24/19 22:49 Review of Systems - Review of Systems Constitutional: Report: No Significant Eyes: Report: No Significant ENT: Report: No Significant Respiratory: Report: No Significant Cardiovascular: Report: No Significant Neurological: Report: No Significant Physical Exam - Physical Exam HEENT: Report: Ears Nose Throat within normal limits Neck: Report: Within normal limits Cardiovascular Systems: Report: +s1/s2 noted, Regular, Rate and Rhythm Respiratory: Report: Breath Sounds are within normal limits Abdomen: Report: Non-tender to palpation Extremities: Report: Non-tender to palpation. Skin: Report: Warm, Dry Neuro/Psych: Report: Mood affect is within normal limits - Assessment Assessment: HTN Dyslipidemia agitation - Plan Plan: fall precautions cont home meds continue current plan of care
[2019-03-25] MEDS: risperiDONE 1 mg/mL 30 mL Bottle PO SCH (17:36)
[2019-03-26] MEDS: risperiDONE 1 mg/mL 30 mL Bottle PO SCH ×2 (08:09→18:00)
--- NOTE | 2019-03-26 14:04 | Internal Medicine Prog Note ---
Internal Medicine Subjective - Subjective Service Date: 03/26/19 Patient seen and examined:: with staff Patient is:: awake, verbal Per staff patient has:: tolerating meds Internal Medicine Objective - Physical Exam Vitals and I&O: Vital Signs Temp 0 F 03/25/19 06:28 Pulse 87 03/24/19 18:54 Resp 16 03/24/19 18:54 BP 000/0 03/24/19 20:56 Pulse Ox 98 03/24/19 18:54 Intake & Output 03/25/19 03/26/19 03/26/19 18:59 06:59 18:59 Intake Total 120 Balance 120 Intake: Oral 120 Other: # Voids 1 # Bowel Movements 0 Active Medications: Current Medications Lorazepam (Ativan) 0.5 mg PO Q4HR PRN; Protocol PRN Reason: Anxiety Stop: 04/23/19 20:56 Last Admin: 03/25/19 06:23 Dose: 0.5 mg Risperidone (Risperdal) 1 mg PO BID TULIO; Protocol Stop: 05/24/19 08:59 Last Admin: 03/26/19 08:09 Dose: 1 mg Zolpidem Tartrate (Ambien) 5 mg PO HS PRN PRN Reason: Insomnia Stop: 05/23/19 20:56 General: alert HEENT: NC/AT, PERRLA Neck: Supple Lungs: CTAB Cardiovascular: RRR, Normal S1, Normal S2 Abdomen: soft, non-tender, non-distended Extremities: excoriation Neurological: alert Internal Medicine Assmt/Plan - Assessment Assessment: HTN Dyslipidemia agitation - Plan Plan: fall precautions cont home meds continue current plan of care
--- NOTE | 2019-03-26 18:50 | Psychiatric Evaluation ---
DATE OF SERVICE: PSYCHIATRIC INITIAL EVALUATION MENTAL STATUS EXAM PATIENT'S AGE: 74. SEX: Female. PHYSICIAN: Dr. Cortes. CHIEF COMPLAINT: Agitation and irritability. HISTORY OF PRESENT ILLNESS: The patient was admitted to the hospital from [facility] because of increased irritability and agitation, and the patient has been combative. The patient also has not been able to follow any directions and has been striking out staff, especially during helping him with her ADLs. The patient is also confused and also not able to follow any staff directions. Also, the patient has been in angry and in irritable moods. PAST PSYCHIATRIC HISTORY: The patient has been under my care in [facility]. She also has a history of admission to [facility] and other hospitals. PAST MEDICAL HISTORY: The patient has currently no major medical problems, but the patient has a history of hypertension and dyslipidemia. SOCIAL HISTORY: The patient lives in [facility]. No known alcohol or drug use. ALLERGIES: No known allergies. MENTAL STATUS EXAMINATION: The patient appears her stated age. Anxious. Irritable mood. Thought processes are circumstantial with occasional flight of ideas. The patient did not answer question regarding hallucinations or delusions, but seems to be preoccupied. She denies any suicidal or homicidal ideations. The patient is alert and oriented to situation, but not to place or person. Intact immediate, recent, and remote memories. Poor insight and poor judgment. She seems to be of average intelligence based on her verbal ability. ASSESSMENT: PRIMARY DIAGNOSIS: Unspecified psychosis. Rule out depressive mood disorder with psychotic features. Rule out bipolar disorder, severe, with psychotic features. MEDICAL DIAGNOSES: 1. Hypertension. 2. Hyperlipidemia. TREATMENT PLAN: We will monitor the patient's behavior and condition closely. We will start individual as well as milieu psychotherapy. We will monitor psychotropic medications and will adjust the dose. ESTIMATED LENGTH OF STAY: 5-7 days. PATIENT'S STRENGTHS AND WEAKNESSES: The patient's strength is not clear at this time except that she seems to be in relatively fair health. Weaknesses are her poor impulse control and her agitation. AFTER DISCHARGE PLAN: Most probably the patient will return to [facility]. Outpatient treatment and followup will continue in [facility]. CRITERIA FOR DISCHARGE: The patient will not be agitated or psychotic and will stabilize psychotropic medications and will establish outpatient treatment plans. [facility]# [id number]
--- NOTE | 2019-03-27 03:48 | Progress Notes ---
DATE: 03/26/2019 SUBJECTIVE: Chart reviewed and the patient interviewed. Also, discussed the patient's condition with the staff and reviewed records and labs. The patient is still anxious and restless. The patient also is still uncooperative with the staff and still needs redirections and is restless. The patient also still wants to be left alone. Otherwise, the patient seems to be slightly less confused and easier to redirect her. ASSESSMENT: The patient still needs redirections. TREATMENT PLAN: Continue monitoring her behavior and condition closely and continue adjusting psychotropic medications and work on behavior modification. JOB# [id number]
--- NOTE | 2019-03-27 08:10 | Progress Notes ---
DATE: SUBJECTIVE: Chart was reviewed and the patient interviewed. Also discussed the patient's condition with the staff and reviewed records and labs, "I am not sick." The patient is still in angry and in irritable mood and the patient is still resisting care. The patient also still needs lots of redirections. The patient also is preoccupied and still has difficulty making decision. She also is still easily agitated and easily irritable with staff and has episodes of striking out. On the other hand, the patient is compliant with taking his medications with no side effects of Risperdal and the patient started to take Risperdal in a dose of 1 mg twice a day with no side effects. ASSESSMENT: The patient is still agitated and can be dangerous to others. TREATMENT PLAN: We will monitor the patient's condition and medications closely. We will monitor psychotropic medications and we will also place the patient on 5250 hold for dangerous to others. JOB# [id number]
[2019-03-27] MEDS: risperiDONE 1 mg/mL 30 mL Bottle PO SCH ×2 (09:53→16:54)
[2019-03-28] MEDS: risperiDONE 1 mg/mL 30 mL Bottle PO SCH ×2 (08:24→16:21)
--- NOTE | 2019-03-28 11:11 | Internal Medicine Prog Note ---
Internal Medicine Subjective - Subjective Patient seen and examined:: chart reviewed Patient is:: awake, verbal, confused, congested, other (angry) Per staff patient has:: no adverse event, tolerating meds Internal Medicine Objective - Physical Exam Vitals and I&O: Vital Signs Temp 0 F 03/25/19 06:28 Pulse 87 03/24/19 18:54 Resp 16 03/24/19 18:54 BP 000/0 03/24/19 20:56 Pulse Ox 98 03/24/19 18:54 Intake & Output 03/27/19 03/28/19 03/28/19 18:59 06:59 18:59 Intake Total 900 480 Balance 900 480 Intake: Oral 900 480 Other: # Voids 3 2 # Bowel Movements 1 Active Medications: Current Medications Lorazepam (Ativan) 0.5 mg PO Q4HR PRN; Protocol PRN Reason: Anxiety Stop: 04/23/19 20:56 Last Admin: 03/25/19 06:23 Dose: 0.5 mg Risperidone (Risperdal) 1 mg PO BID TULIO; Protocol Stop: 05/24/19 08:59 Last Admin: 03/28/19 08:24 Dose: 1 mg Zolpidem Tartrate (Ambien) 5 mg PO HS PRN PRN Reason: Insomnia Stop: 05/23/19 20:56 General: demented HEENT: NC/AT, PERRLA Neck: Supple Lungs: CTAB Cardiovascular: RRR, Normal S1, Normal S2 Abdomen: soft, non-tender, non-distended Extremities: excoriation Neurological: alert Internal Medicine Assmt/Plan - Assessment Assessment: agitation dyslipidemia h/o htn - Plan Plan: Continuation of care as per psych Monitor Labs. Continue present meds as directed. Monitor Diet/Nutritional support. Safety precaution. Supportive care. Fall precaution, frequent nursing rounds, and as needed restraints to prevent fall. Continue collaborating with consulting specialists, case management and nursing team. Will Monitor patient and continue present care management. Nutritional Asmnt/Malnutr-PDOC - Dietary Evaluation Malnutrition Findings (Please click <Entered> for more info): Nutritional Asmnt/Malnutrition Start: 03/27/19 15: 30 Text: Status: Complete Freq: Protocol: Document 03/27/19 15:30 TIRSO (Rec: 03/27/19 15:34 TIRSO [id number]) Nutritional Asmnt/Malnutrition Patient General Information Nutritional Screening Moderate Risk Diagnosis Psychosis Pertinent Medical Hx/Surgical Hx HTN, dyslipidemia Subjective Information Pt is a 74-year-old female admitted on 03/24 from group home d/t agitation x1 day. Pt is currently eating 75-100% meals per Meal/Nutrition Activity Record. Per RN note ( 03/27), Pt is easily irritable and agitated. HT: 57 WT: 215 LB (97.73 kg) ABW: 155 LB (70.45 kg) BMI: 33.67 (Obese) GI: WNL, Soft, Non-tender BM: Not noted I/O: 1420/Not Noted Skin: WNL, intact Kevin: 19 Diet Order: Cardiac, RIA Estimated Energy Needs: ( Geriatric, ABW) 1230-2777 kcals (25-30 kcals/ kg) 70-85g Pro (1.0-1.2 g/kg) 5329-3275 ml (25-30 ml/kg) Current Diet Order/ Nutrition Support Cardiac, RIA Pertinent Medications No pertinent medications Pertinent Labs No current Labs to Report Nutritional Hx/Data Height 1.7 m Height (Calculated Centimeters) 170.2 Current Weight (lbs) 97.522 kg Weight (Calculated Kilograms) 97.5 Weight (Calculated Grams) 35447.4 [place] Body Weight 135 LB (61.36 kg) % [place] Body Weight 159 Body Mass Index (BMI) 33.6 Weight Status Obese GI Symptoms GI Symptoms None Last BM Not noted Skin Integrity/Comment: Skin: WNL, intact Kevin: 19 Current %PO Good (75-100%) Estimated Nutritional Goals BEE in Kcals: Adj wt of IBW Calories/Kcals/Kg 25-30 Kcals Calculated 2813-5868 Protein: Adj wt of IBW Protein g/k.0-1.2 Protein Calculated 70-85 Fluid: ml 8208-2949 ml (25-30 ml/kg) Nutritional Problem No current Nutrition Prob Problem No nutrition diagnosis at this time. Etiology n/a Signs/Symptoms: n/a Malnutrition Related to Morbid Obesity Malnutrition related to morbid obesity No Intervention/Recommendation Comments Continue with Cardiac, RIA diet as ordered. Expected Outcomes/Goals Expected Outcomes/Goals 1. PO intake to meet 75% of nutritional needs. 2. Monitor PO intake, wt, nutrition related labs, and skin integrity. 3. F/U as low risk in 7 days, 04/03
--- NOTE | 2019-03-28 17:58 | Progress Notes ---
DATE: 03/28/2019 SUBJECTIVE: Case was discussed with staff of the patient, reviewed records. A 74-year-old female who was in the office of Dr. Cortes on 03/24/2019 because of agitation, irritability, came from [facility]. She has been very agitated, combative, has not been able to follow direction, striking at staff, especially during helping her with her ADLs, confused, unable to follow staff direction, very destructive when I tried to talk to her, also ____ somebody else and she kept answering questions, making inappropriate comment. Continues to be very irritable, internally preoccupied. Continues to have poor insight, needing redirection. No side effects with the medication, no sedation, no nausea, no extrapyramidal symptoms. She is on Risperdal 1 mg twice a day. We will continue outpatient group therapy, milieu therapy and adjust medication as needed. JOB# [id number]
[2019-03-29] MEDS: risperiDONE 1 mg/mL 30 mL Bottle PO SCH ×2 (09:00→16:41)
--- NOTE | 2019-03-29 09:52 | Internal Medicine Prog Note ---
Internal Medicine Subjective - Subjective Patient is:: awake, verbal, confused, congested Per staff patient has:: no adverse event, tolerating meds Internal Medicine Objective - Physical Exam Vitals and I&O: Vital Signs Temp 0 F 03/25/19 06:28 Pulse 87 03/24/19 18:54 Resp 16 03/24/19 18:54 BP 000/0 03/24/19 20:56 Pulse Ox 98 03/24/19 18:54 Intake & Output 03/28/19 03/29/19 03/29/19 18:59 06:59 18:59 Intake Total 1200 Balance 1200 Intake: Oral 1200 Other: # Bowel Movements 1 Active Medications: Current Medications Lorazepam (Ativan) 0.5 mg PO Q4HR PRN; Protocol PRN Reason: Anxiety Stop: 04/23/19 20:56 Last Admin: 03/25/19 06:23 Dose: 0.5 mg Risperidone (Risperdal) 1 mg PO BID TULIO; Protocol Stop: 05/24/19 08:59 Last Admin: 03/29/19 09:00 Dose: 1 mg Zolpidem Tartrate (Ambien) 5 mg PO HS PRN PRN Reason: Insomnia Stop: 05/23/19 20:56 General: demented, NAD HEENT: NC/AT, PERRLA Neck: Supple, No JVD Lungs: CTAB Cardiovascular: RRR, Normal S1, Normal S2 Abdomen: soft, non-tender, non-distended Extremities: excoriation Neurological: alert Internal Medicine Assmt/Plan - Assessment Assessment: Agitation HTN Dyslipidemia - Plan Plan: Continue current treatment plan. Monitor Labs.Continue current medications Continue to monitor VS Monitor Diet/Nutritional support. Psych management per Psychiatry. Pain Management. PT/OT prn Safety precaution, Fall precaution, frequent nursing round. Supportive care. Continue collaborating with consulting specialists, case management and nursing team. Nutritional Asmnt/Malnutr-PDOC - Dietary Evaluation Malnutrition Findings (Please click <Entered> for more info): Nutritional Asmnt/Malnutrition Start: 03/27/19 15: 30 Text: Status: Complete Freq: Protocol: Document 03/27/19 15:30 TIRSO (Rec: 03/27/19 15:34 TIRSO [id number]) Nutritional Asmnt/Malnutrition Patient General Information Nutritional Screening Moderate Risk Diagnosis Psychosis Pertinent Medical Hx/Surgical Hx HTN, dyslipidemia Subjective Information Pt is a 74-year-old female admitted on 03/24 from care home d/t agitation x1 day. Pt is currently eating 75-100% meals per Meal/Nutrition Activity Record. Per RN note ( 03/27), Pt is easily irritable and agitated. HT: 57 WT: 215 LB (97.73 kg) ABW: 155 LB (70.45 kg) BMI: 33.67 (Obese) GI: WNL, Soft, Non-tender BM: Not noted I/O: 1420/Not Noted Skin: WNL, intact Kevin: 19 Diet Order: Cardiac, RIA Estimated Energy Needs: ( Geriatric, ABW) 9120-4164 kcals (25-30 kcals/ kg) 70-85g Pro (1.0-1.2 g/kg) 5886-2976 ml (25-30 ml/kg) Current Diet Order/ Nutrition Support Cardiac, RIA Pertinent Medications No pertinent medications Pertinent Labs No current Labs to Report Nutritional Hx/Data Height 5 ft 7 in Height (Calculated Centimeters) 170.2 Current Weight (lbs) 215 lb Weight (Calculated Kilograms) 97.5 Weight (Calculated Grams) 99469.4 [place] Body Weight 135 LB (61.36 kg) % [place] Body Weight 159 Body Mass Index (BMI) 33.6 Weight Status Obese GI Symptoms GI Symptoms None Last BM Not noted Skin Integrity/Comment: Skin: WNL, intact Kevin: 19 Current %PO Good (75-100%) Estimated Nutritional Goals BEE in Kcals: Adj wt of IBW Calories/Kcals/Kg 25-30 Kcals Calculated 6228-1569 Protein: Adj wt of IBW Protein g/k.0-1.2 Protein Calculated 70-85 Fluid: ml 4893-0316 ml (25-30 ml/kg) Nutritional Problem No current Nutrition Prob Problem No nutrition diagnosis at this time. Etiology n/a Signs/Symptoms: n/a Malnutrition Related to Morbid Obesity Malnutrition related to morbid obesity No Intervention/Recommendation Comments Continue with Cardiac, RIA diet as ordered. Expected Outcomes/Goals Expected Outcomes/Goals 1. PO intake to meet 75% of nutritional needs. 2. Monitor PO intake, wt, nutrition related labs, and skin integrity. 3. F/U as low risk in 7 days, 04/03
--- NOTE | 2019-03-29 14:43 | Progress Notes ---
DATE: 03/29/2019 Case was discussed with staff of the patient, reviewed records. The patient continues to be look disheveled, disorganized, internally preoccupied. Continues to be irritable, angry. Continues to be resistant to care, needing a lot of redirection, internally preoccupied. Unable to make decisions, easily agitated, irritable, tolerating increase in Risperdal with no side effects, no sedation, no nausea, at times threatening and unable to carry on a reasonable conversation. I will continue to work with the patient in group therapy, milieu therapy and adjust medication as needed. JOB# [id number]
[2019-03-30] MEDS: risperiDONE 1 mg/mL 30 mL Bottle PO SCH ×3 (08:14→16:48)
--- NOTE | 2019-03-30 13:01 | Internal Medicine Prog Note ---
Internal Medicine Subjective - Subjective Service Date: 03/30/19 Patient seen and examined:: with staff Patient is:: awake, verbal, confused, congested Patient Complaints of:: other (continues to be irritated.) Per staff patient has:: no adverse event, no episodes of fall, tolerating meds Internal Medicine Objective - Physical Exam Vitals and I&O: Vital Signs Temp 0 F 03/30/19 06:42 Pulse 87 03/24/19 18:54 Resp 16 03/24/19 18:54 BP 000/0 03/24/19 20:56 Pulse Ox 98 03/24/19 18:54 Intake & Output 03/29/19 03/30/19 03/30/19 18:59 06:59 18:59 Intake Total 1000 120 Balance 1000 120 Intake: Oral 1000 120 Other: # Voids 4 2 # Bowel Movements 1 0 Active Medications: Current Medications Lorazepam (Ativan) 0.5 mg PO Q4HR PRN; Protocol PRN Reason: Anxiety Stop: 04/23/19 20:56 Last Admin: 03/29/19 23:06 Dose: 0.5 mg Risperidone (Risperdal) 1 mg PO BID TULIO; Protocol Stop: 05/24/19 08:59 Last Admin: 03/30/19 08:14 Dose: 1 mg Zolpidem Tartrate (Ambien) 5 mg PO HS PRN PRN Reason: Insomnia Stop: 05/23/19 20:56 Last Admin: 03/29/19 21:32 Dose: 5 mg Physical Exam: Patient continues to agitated. General: demented, NAD HEENT: NC/AT, PERRLA Neck: Supple, No JVD Lungs: CTAB Cardiovascular: RRR, Normal S1, Normal S2 Abdomen: soft, non-tender, non-distended Extremities: excoriation Neurological: alert Internal Medicine Assmt/Plan - Assessment Assessment: agitation dyslipidemia h/o htn - Plan Plan: Continuation of care as per psych Monitor Labs. Continue present meds as directed. Monitor Diet/Nutritional support. Safety precaution. Supportive care. Fall precaution, frequent nursing rounds, and as needed restraints to prevent fall. Continue collaborating with consulting specialists, case management and nursing team. Will Monitor patient and continue present care management. Nutritional Asmnt/Malnutr-PDOC - Dietary Evaluation Malnutrition Findings (Please click <Entered> for more info): Nutritional Asmnt/Malnutrition Start: 03/27/19 15: 30 Text: Status: Complete Freq: Protocol: Document 03/27/19 15:30 TIRSO (Rec: 03/27/19 15:34 TIRSO [id number]) Nutritional Asmnt/Malnutrition Patient General Information Nutritional Screening Moderate Risk Diagnosis Psychosis Pertinent Medical Hx/Surgical Hx HTN, dyslipidemia Subjective Information Pt is a 74-year-old female admitted [facility] d/t agitation x1 day. Pt is currently eating 75-100% meals per Meal/Nutrition Activity Record. Per RN note ( 03/27), Pt is easily irritable and agitated. HT: 57 WT: 215 LB (97.73 kg) ABW: 155 LB (70.45 kg) BMI: 33.67 (Obese) GI: WNL, Soft, Non-tender BM: Not noted I/O: 1420/Not Noted Skin: WNL, intact Kevin: 19 Diet Order: Cardiac, RIA Estimated Energy Needs: ( Geriatric, ABW) 6938-9247 kcals (25-30 kcals/ kg) 70-85g Pro (1.0-1.2 g/kg) 8174-3607 ml (25-30 ml/kg) Current Diet Order/ Nutrition Support Cardiac, RIA Pertinent Medications No pertinent medications Pertinent Labs No current Labs to Report Nutritional Hx/Data Height 1.7 m Height (Calculated Centimeters) 170.2 Current Weight (lbs) 97.522 kg Weight (Calculated Kilograms) 97.5 Weight (Calculated Grams) 95510.4 [place] Body Weight 135 LB (61.36 kg) % [place] Body Weight 159 Body Mass Index (BMI) 33.6 Weight Status Obese GI Symptoms GI Symptoms None Last BM Not noted Skin Integrity/Comment: Skin: WNL, intact Kevin: 19 Current %PO Good (75-100%) Estimated Nutritional Goals BEE in Kcals: Adj wt of IBW Calories/Kcals/Kg 25-30 Kcals Calculated 5654-3994 Protein: Adj wt of IBW Protein g/k.0-1.2 Protein Calculated 70-85 Fluid: ml 1415-6326 ml (25-30 ml/kg) Nutritional Problem No current Nutrition Prob Problem No nutrition diagnosis at this time. Etiology n/a Signs/Symptoms: n/a Malnutrition Related to Morbid Obesity Malnutrition related to morbid obesity No Intervention/Recommendation Comments Continue with Cardiac, RIA diet as ordered. Expected Outcomes/Goals Expected Outcomes/Goals 1. PO intake to meet 75% of nutritional needs. 2. Monitor PO intake, wt, nutrition related labs, and skin integrity. 3. F/U as low risk in 7 days, 04/03
--- NOTE | 2019-03-30 20:03 | Progress Notes ---
DATE: SUBJECTIVE: Chart reviewed and the patient interviewed. Also discussed the patient's condition with the staff and reviewed records and labs. The patient is still easily agitated and is still in angry and in irritable mood. The patient also is still resisting care and still needs lots of redirections. The patient also still restless and is still in angry mood. Otherwise, the patient is compliant with taking his medications and the patient continued to take Risperdal dose adjusted to 1 mg twice a day. ASSESSMENT: The patient is still irritable and is still agitated. TREATMENT PLAN: We will continue to monitor her behavior and condition closely. Also, continue adjusting psychotropic medications and work on behavioral modifications and followup plans. [facility]# [id number]
[2019-03-31] MEDS: risperiDONE 1 mg/mL 30 mL Bottle PO SCH ×2 (09:22→16:54)
--- NOTE | 2019-03-31 17:07 | Internal Medicine Prog Note ---
Internal Medicine Subjective - Subjective Service Date: 03/31/19 Patient is:: awake, verbal, confused, congested Patient Complaints of:: other (continues to be irritated.) Per staff patient has:: no adverse event, no episodes of fall, tolerating meds Internal Medicine Objective - Physical Exam Vitals and I&O: Vital Signs Temp 0 F 03/31/19 14:03 Pulse 87 03/24/19 18:54 Resp 19 03/31/19 08:00 BP 000/0 03/24/19 20:56 Pulse Ox 98 03/24/19 18:54 Intake & Output 03/30/19 03/31/19 03/31/19 18:59 06:59 18:59 Intake Total 1200 240 Balance 1200 240 Intake: Oral 1200 240 Other: # Voids 4 2 # Bowel Movements 0 0 Active Medications: Current Medications Lorazepam (Ativan) 0.5 mg PO Q4HR PRN; Protocol PRN Reason: Anxiety Stop: 04/23/19 20:56 Last Admin: 03/29/19 23:06 Dose: 0.5 mg Risperidone (Risperdal) 1 mg PO BID TULIO; Protocol Stop: 05/24/19 08:59 Last Admin: 03/31/19 16:54 Dose: Not Given Zolpidem Tartrate (Ambien) 5 mg PO HS PRN PRN Reason: Insomnia Stop: 05/23/19 20:56 Last Admin: 03/30/19 20:50 Dose: 5 mg General: demented, NAD HEENT: NC/AT, PERRLA Neck: Supple, No JVD Lungs: CTAB Cardiovascular: RRR, Normal S1, Normal S2 Abdomen: soft, non-tender, non-distended Extremities: excoriation Neurological: alert Internal Medicine Assmt/Plan - Assessment Assessment: HTN Dyslipidemia agitation - Plan Plan: fall precautions cont home meds continue current plan of care Nutritional Asmnt/Malnutr-PDOC - Dietary Evaluation Malnutrition Findings (Please click <Entered> for more info): Nutritional Asmnt/Malnutrition Start: 03/27/19 15: 30 Text: Status: Complete Freq: Protocol: Document 03/27/19 15:30 TIRSO (Rec: 03/27/19 15:34 TIRSO [id number]) Nutritional Asmnt/Malnutrition Patient General Information Nutritional Screening Moderate Risk Diagnosis Psychosis Pertinent Medical Hx/Surgical Hx HTN, dyslipidemia Subjective Information Pt is a 74-year-old female admitted on 03/24 from care home d/t agitation x1 day. Pt is currently eating 75-100% meals per Meal/Nutrition Activity Record. Per RN note ( 03/27), Pt is easily irritable and agitated. HT: 57 WT: 215 LB (97.73 kg) ABW: 155 LB (70.45 kg) BMI: 33.67 (Obese) GI: WNL, Soft, Non-tender BM: Not noted I/O: 1420/Not Noted Skin: WNL, intact Kevin: 19 Diet Order: Cardiac, RIA Estimated Energy Needs: ( Geriatric, ABW) 4512-1466 kcals (25-30 kcals/ kg) 70-85g Pro (1.0-1.2 g/kg) 7278-5140 ml (25-30 ml/kg) Current Diet Order/ Nutrition Support Cardiac, RIA Pertinent Medications No pertinent medications Pertinent Labs No current Labs to Report Nutritional Hx/Data Height 5 ft 7 in Height (Calculated Centimeters) 170.2 Current Weight (lbs) 215 lb Weight (Calculated Kilograms) 97.5 Weight (Calculated Grams) 99268.4 [place] Body Weight 135 LB (61.36 kg) % [place] Body Weight 159 Body Mass Index (BMI) 33.6 Weight Status Obese GI Symptoms GI Symptoms None Last BM Not noted Skin Integrity/Comment: Skin: WNL, intact Kevin: 19 Current %PO Good (75-100%) Estimated Nutritional Goals BEE in Kcals: Adj wt of IBW Calories/Kcals/Kg 25-30 Kcals Calculated 0760-4685 Protein: Adj wt of IBW Protein g/k.0-1.2 Protein Calculated 70-85 Fluid: ml 2508-8443 ml (25-30 ml/kg) Nutritional Problem No current Nutrition Prob Problem No nutrition diagnosis at this time. Etiology n/a Signs/Symptoms: n/a Malnutrition Related to Morbid Obesity Malnutrition related to morbid obesity No Intervention/Recommendation Comments Continue with Cardiac, RIA diet as ordered. Expected Outcomes/Goals Expected Outcomes/Goals 1. PO intake to meet 75% of nutritional needs. 2. Monitor PO intake, wt, nutrition related labs, and skin integrity. 3. F/U as low risk in 7 days, 04/03
--- NOTE | 2019-03-31 22:05 | Progress Notes ---
DATE: 03/31/2019 PSYCHIATRIC PROGRESS NOTE SUBJECTIVE: Chart reviewed and the patient interviewed. Also, discussed the patient's condition with the staff and reviewed records and labs. The patient is still in a depressed mood and is withdrawn. The patient also is interacting minimally with peers and with others. Also, is still resisting care. The patient is suspicious and paranoid and easily agitated. Otherwise, the patient is compliant with taking her medications with no side effects of medications. ASSESSMENT: The patient is still depressed and is still psychotic. TREATMENT PLAN: Continue current medications. Also, continue to monitor her behavior and continue to follow up closely. [facility]# [id number]
[2019-04-01] MEDS: risperiDONE 1 mg/mL 30 mL Bottle PO SCH ×2 (10:01→18:18)
--- NOTE | 2019-04-01 11:00 | Internal Medicine Prog Note ---
Internal Medicine Subjective - Subjective Service Date: 04/01/19 Patient is:: awake, verbal, confused, congested Patient Complaints of:: other (continues to be irritated.) Per staff patient has:: no adverse event, no episodes of fall, tolerating meds Internal Medicine Objective - Physical Exam Vitals and I&O: Vital Signs Temp 0 F 03/31/19 14:03 Pulse 87 03/24/19 18:54 Resp 19 03/31/19 19:42 BP 000/0 03/24/19 20:56 Pulse Ox 98 03/24/19 18:54 Intake & Output 03/31/19 04/01/19 04/01/19 18:59 06:59 18:59 Intake Total 360 120 Balance 360 120 Intake: Oral 360 120 Other: # Voids 2 2 # Bowel Movements 1 Active Medications: Current Medications Lorazepam (Ativan) 0.5 mg PO Q4HR PRN; Protocol PRN Reason: Anxiety Stop: 04/23/19 20:56 Last Admin: 03/29/19 23:06 Dose: 0.5 mg Risperidone (Risperdal) 1 mg PO BID TULIO; Protocol Stop: 05/24/19 08:59 Last Admin: 04/01/19 10:01 Dose: Not Given Zolpidem Tartrate (Ambien) 5 mg PO HS PRN PRN Reason: Insomnia Stop: 05/23/19 20:56 Last Admin: 03/31/19 20:17 Dose: 5 mg Physical Exam: Patient continues to irritable and agitated. General: demented, NAD HEENT: NC/AT, PERRLA Neck: Supple, No JVD Lungs: CTAB Cardiovascular: RRR, Normal S1, Normal S2 Abdomen: soft, non-tender, non-distended Extremities: excoriation Neurological: alert Internal Medicine Assmt/Plan - Assessment Assessment: agitation dyslipidemia h/o htn - Plan Plan: Continuation of care as per psych Monitor Labs. Continue present meds as directed. Monitor Diet/Nutritional support. Safety precaution. Supportive care. Fall precaution, frequent nursing rounds, and as needed restraints to prevent fall. Continue collaborating with consulting specialists, case management and nursing team. Will Monitor patient and continue present care management. Nutritional Asmnt/Malnutr-PDOC - Dietary Evaluation Malnutrition Findings (Please click <Entered> for more info): Nutritional Asmnt/Malnutrition Start: 03/27/19 15: 30 Text: Status: Complete Freq: Protocol: Document 03/27/19 15:30 TIRSO (Rec: 03/27/19 15:34 TIRSO [id number]) Nutritional Asmnt/Malnutrition Patient General Information Nutritional Screening Moderate Risk Diagnosis Psychosis Pertinent Medical Hx/Surgical Hx HTN, dyslipidemia Subjective Information Pt is a 74-year-old female admitted on 03/24 from residential d/t agitation x1 day. Pt is currently eating 75-100% meals per Meal/Nutrition Activity Record. Per RN note ( 03/27), Pt is easily irritable and agitated. HT: 57 WT: 215 LB (97.73 kg) ABW: 155 LB (70.45 kg) BMI: 33.67 (Obese) GI: WNL, Soft, Non-tender BM: Not noted I/O: 1420/Not Noted Skin: WNL, intact Kevin: 19 Diet Order: Cardiac, RIA Estimated Energy Needs: ( Geriatric, ABW) 3687-6892 kcals (25-30 kcals/ kg) 70-85g Pro (1.0-1.2 g/kg) 8204-2966 ml (25-30 ml/kg) Current Diet Order/ Nutrition Support Cardiac, RIA Pertinent Medications No pertinent medications Pertinent Labs No current Labs to Report Nutritional Hx/Data Height 1.7 m Height (Calculated Centimeters) 170.2 Current Weight (lbs) 97.522 kg Weight (Calculated Kilograms) 97.5 Weight (Calculated Grams) 46495.4 [place] Body Weight 135 LB (61.36 kg) % [place] Body Weight 159 Body Mass Index (BMI) 33.6 Weight Status Obese GI Symptoms GI Symptoms None Last BM Not noted Skin Integrity/Comment: Skin: WNL, intact Kevin: 19 Current %PO Good (75-100%) Estimated Nutritional Goals BEE in Kcals: Adj wt of IBW Calories/Kcals/Kg 25-30 Kcals Calculated 9532-4699 Protein: Adj wt of IBW Protein g/k.0-1.2 Protein Calculated 70-85 Fluid: ml 9045-5769 ml (25-30 ml/kg) Nutritional Problem No current Nutrition Prob Problem No nutrition diagnosis at this time. Etiology n/a Signs/Symptoms: n/a Malnutrition Related to Morbid Obesity Malnutrition related to morbid obesity No Intervention/Recommendation Comments Continue with Cardiac, RIA diet as ordered. Expected Outcomes/Goals Expected Outcomes/Goals 1. PO intake to meet 75% of nutritional needs. 2. Monitor PO intake, wt, nutrition related labs, and skin integrity. 3. F/U as low risk in 7 days, 04/03
--- NOTE | 2019-04-01 21:29 | Progress Notes ---
DATE: 04/01/2019 SUBJECTIVE: The patient is currently in the hospital, agitation, irritability, combative behaviors. The patient stating that she is ready to go home. Noted to be irritable, upset, minimally interactive, not even making eye contact, keeps to self, withdrawn, staring out the window, concerns for ongoing psychotic symptoms, seems to at times be responding to internal stimuli, suspicious and paranoid. Medications were reviewed including dosages, frequencies. PLAN: We will continue to monitor. I will be increasing the dosing of Risperdal today. JOB# [id number]
[2019-04-02] MEDS: risperiDONE 1 mg/mL 30 mL Bottle PO SCH (08:18)
--- NOTE | 2019-04-02 13:16 | Discharge Summary ---
DATE OF DISCHARGE: 04/02/2019 AGE: 74. SEX: Female. PHYSICIAN: Dr. Cortes. FINAL DIAGNOSIS AND PRIMARY DIAGNOSIS: Unspecified psychosis. MEDICAL DIAGNOSES: 1. Hypertension. 2. Hyperlipidemia. REASON FOR HOSPITALIZATION: The patient was admitted to the hospital because of increased irritability and agitation and combative behavior in [facility] and was not able to follow directions. HOSPITAL COURSE: The patient continued to be anxious and in irritable mood. The patient also was confused. The patient also was easily irritable and agitated. The patient also was not able to follow directions and she was having severe mood swings. The patient was given Risperdal and the dose adjusted to 1 mg twice a day. Gradually, the patient's affect was brighter. The patient was less agitated and less irritable. She also was interacting more with peers and with others. The patient was discharged from the hospital back to [facility]. PHYSICAL EXAMINATION: Basically within normal. Blood workup was also basically within normal and the patient had no major medical problems while in the hospital. AFTER DISCHARGE PLANS: The patient was discharged from the hospital back to [facility] with plans for followup there. EXPECTED OUTCOME AFTER DISCHARGE: Fair, if the patient continues with her outpatient treatment and continues to take psychotropic medications and follow up with discharge plans. [facility]# [id number]
== END 2019-04-02 13:20 | DRG 885 ==
LOC: ER 18:40 → GERO 19:50
PROVIDERS: ADMIT Psychiatry & Neurology Psychiatry; ATTEND Psychiatry & Neurology Psychiatry
DX: F29 Unspecified psychosis not due to a substance or known physiological condition (principal); F39 Unspecified mood [affective] disorder; I10 Essential (primary) hypertension; E78.5 Hyperlipidemia, unspecified; Z79.899 Other long term (current) drug therapy
CPT/HCPCS: G0410